=== PATIENT | female | born 1960 | race Caucasian/White ===

== ENCOUNTER → 2020-03-22 08:49 | Outpatient (BNVA) | payer MEDICARE, MEDICAID, SELFPAY | PROVIDERS: PCP Internal Medicine; Visit Provider Family Medicine Adult Medicine | DX: Z76.89 Persons encountering health services in other specified circumstances (principal) | CPT/HCPCS: 99212 ==

== ENCOUNTER 2020-03-22 10:34 | Outpatient (REF) | payer MEDICARE, MEDICAID, SELFPAY ==
[2020-03-22 13:52] LABS: MANUAL DIFF FLAG NO
[2020-03-22 14:00] LABS: Basophils Absolute Auto 0.1 X10*3/uL (0.0-0.2); Basophils Percent Auto 0.8 % (0-2); Eosinophils Absolute Auto 0.1 X10*3/uL (0.0-0.4); Hematocrit 38.8 % (37-47); Hemoglobin 12.7 g/dl (12.0-16.0); Imm Gran Abs Auto 0.02 X10*3/uL (0.00-0.03); Imm Gran Pct Auto 0.2 % (0.0-0.4); Lymphocytes Absolute Auto 2.1 X10*3/uL (1.2-4.9); Lymphocytes Percent Auto 20.2 % (20-40); Mean Corpuscular HGB Conc 32.7 g/dl (31.0-35.0); Mean Corpuscular Hemoglobin 29.6 pg (27.0-33.0); Mean Corpuscular Volume 90.4 fL (80-98); Mean Platelet Volume 12.4 fL (9.4-12.3); Monocytes Absolute Auto 0.9 X10*3/uL (0.1-1.2); Neutrophils Absolute Auto 7.2 X10*3/uL (2.0-8.3); Neutrophils Percent Auto 68.8 % (45-73); Platelet Count 229 X10*3/uL (160-400); Red Blood Count 4.29 X10*6/uL (4.20-5.50); Red Cell Distribution Width 14.2 % (11.0-16.0); White Blood Count 10.4 X10*3/uL (4.8-10.8)
[2020-03-22 14:19] LABS: Alanine Aminotransferase 15 U/L (0-31); Albumin Level 4.1 g/dL (3.5-5.0); Alkaline Phosphatase 91 U/L (39-117); Anion Gap 17 (12-20); Aspartate Amino Transferase 18 U/L (5-31); Bilirubin Total 0.4 mg/dL (0.0-1.0); Blood Urea Nitrogen 8 mg/dL (9-16); Carbon Dioxide 25 mmol/L (22-29); Chloride 101 mmol/L (96-108); Cholesterol 152 mg/dL; Estimated Glomerular Filt Rate > 60; Glucose Fasting 99 mg/dL (60-99); HDL Cholesterol 49 mg/dL; LDL Cholesterol Calculated 77 mg/dl; Lipase 18 U/L (8-78); Potassium 4.5 mmol/l (3.3-5.1); Sodium 138 mmol/L (135-145); Total Protein 7.2 g/dL (6.5-8.0); Triglycerides 132 mg/dL
[2020-03-22 14:43] LABS: Vitamin D 25-OH Total 48.3 ng/mL (>30)
== END 2020-03-22 10:35 | disposition home or self-care (01) ==
LOC: HO.10HDL 10:34
PROVIDERS: Visit Provider Internal Medicine
DX: K29.30 Chronic superficial gastritis without bleeding (principal); E78.00 Pure hypercholesterolemia, unspecified; R10.9 Unspecified abdominal pain; E66.3 Overweight; E55.9 Vitamin D deficiency, unspecified
CPT/HCPCS: 36415; 80053; 80061; 82306; 83690; 84443; 85025; 99212

== ENCOUNTER → 2020-04-05 09:42 | Outpatient (BNVA) | payer MEDICARE, MEDICAID, SELFPAY | PROVIDERS: PCP Internal Medicine; Visit Provider Internal Medicine Gastroenterology | DX: Z13.89 Encounter for screening for other disorder (principal) | CPT/HCPCS: Q3014 ==

== ENCOUNTER → 2020-04-14 08:17 | Outpatient (BNVA) | payer MEDICARE, MEDICAID, SELFPAY | PROVIDERS: PCP Internal Medicine; Visit Provider Family Medicine Adult Medicine | DX: M24.9 Joint derangement, unspecified (principal); M54.14 Radiculopathy, thoracic region | CPT/HCPCS: 81001; 87086; 99212 ==

== ENCOUNTER 2020-04-14 09:09 | Outpatient (REF) | payer MEDICARE, MEDICAID, SELFPAY ==
[2020-04-14 10:22] LABS: Glucose Urine UA NEG (NEG); Leukocyte Esterase Urine 1+ (NEG); Nitrite Urine NEG (NEG); PH 6.5 (5.0-8.0); Specific Gravity - Urine 1.015 (1.005-1.025); Urine Blood TRACE (NEG); Urine Ketones NEG (NEG); Urine Protein NEG (NEG-TRACE)
[2020-04-14 10:23] LABS: Appearance Urine CLEAR; Color Urine YELLOW
[2020-04-14 11:04] LABS: Mucus Urine TRACE /LPF; RBC Urine 0-2 /HPF (0); Squamous Epithelial Cell Urine 1+ /LPF
== END 2020-04-14 09:10 | disposition home or self-care (01) ==
LOC: HO.10HDL 09:09
PROVIDERS: Visit Provider Internal Medicine
DX: Z13.89 Encounter for screening for other disorder (principal)
CPT/HCPCS: 81001; 87086

== ENCOUNTER 2020-04-25 15:10 | Outpatient (REF) | payer MEDICARE, MEDICAID, SELFPAY | END 2020-04-25 15:11 | disposition home or self-care (01) | LOC: HO.HMGCLDS 15:10 | PROVIDERS: PCP Internal Medicine; Visit Provider Internal Medicine Gastroenterology | DX: Z13.89 Encounter for screening for other disorder (principal) ==

== ENCOUNTER 2020-04-26 12:50 | Outpatient (REF) | payer MEDICARE, MEDICAID, SELFPAY ==
[2020-04-26 13:58] LABS: MANUAL DIFF FLAG NO
[2020-04-26 14:08] LABS: Basophils Absolute Auto 0.1 X10*3/uL (0.0-0.2); Basophils Percent Auto 0.8 % (0-2); Eosinophils Absolute Auto 0.2 X10*3/uL (0.0-0.4); Eosinophils Percent Auto 1.4 % (0-4); Hematocrit 38.9 % (37-47); Hemoglobin 12.7 g/dl (12.0-16.0); Imm Gran Abs Auto 0.06 X10*3/uL (0.00-0.03); Imm Gran Pct Auto 0.6 % (0.0-0.4); Lymphocytes Absolute Auto 2.9 X10*3/uL (1.2-4.9); Lymphocytes Percent Auto 28.4 % (20-40); Mean Corpuscular HGB Conc 32.6 g/dl (31.0-35.0); Mean Corpuscular Hemoglobin 29.5 pg (27.0-33.0); Mean Corpuscular Volume 90.3 fL (80-98); Mean Platelet Volume 11.8 fL (9.4-12.3); Monocytes Absolute Auto 0.9 X10*3/uL (0.1-1.2); Monocytes Percent Auto 8.9 % (2-11); Neutrophils Absolute Auto 6.2 X10*3/uL (2.0-8.3); Neutrophils Percent Auto 59.9 % (45-73); Platelet Count 259 X10*3/uL (160-400); Red Blood Count 4.31 X10*6/uL (4.20-5.50); Red Cell Distribution Width 13.8 % (11.0-16.0); White Blood Count 10.4 X10*3/uL (4.8-10.8)
[2020-04-26 14:34] LABS: Alanine Aminotransferase 9 U/L (0-31); Albumin Level 4.1 g/dL (3.5-5.0); Alkaline Phosphatase 67 U/L (39-117); Anion Gap 14 (12-20); Aspartate Amino Transferase 14 U/L (5-31); Bilirubin Direct 0.2 mg/dL (0.0-0.5); Bilirubin Total 0.2 mg/dL (0.0-1.0); Blood Urea Nitrogen 7 mg/dL (9-16); C Reactive Protein 0.17 mg/dL (< or = 0.50); Calcium 9.1 mg/dL (8.4-10.2); Carbon Dioxide 27 mmol/L (22-29); Chloride 102 mmol/L (96-108); Estimated Glomerular Filt Rate > 60; Glucose Random 96 mg/dL (60-115); Potassium 4.2 mmol/l (3.3-5.1); Sodium 139 mmol/L (135-145); Total Protein 6.9 g/dL (6.5-8.0)
[2020-04-26 14:51] LABS: Glucose Urine UA NEG (NEG); Leukocyte Esterase Urine NEG (NEG); Nitrite Urine NEG (NEG); PH 5.5 (5.0-8.0); Urine Blood TRACE (NEG); Urine Ketones NEG (NEG); Urine Protein NEG (NEG-TRACE)
[2020-04-26 14:55] LABS: Appearance Urine HAZY; Color Urine YELLOW
[2020-04-26 15:15] LABS: Squamous Epithelial Cell Urine 1+ /LPF
[2020-04-26 15:16] LABS: Mucus Urine 2+ /LPF
== END 2020-04-26 12:51 | disposition home or self-care (01) ==
LOC: HO.HMGCLDS 12:50
PROVIDERS: PCP Internal Medicine; Visit Provider Internal Medicine Gastroenterology
DX: K29.30 Chronic superficial gastritis without bleeding (principal); K25.9 Gastric ulcer, unspecified as acute or chronic, without hemorrhage or perforation; R10.32 Left lower quadrant pain
CPT/HCPCS: 36415; 80048; 80076; 81001; 85025; 86140

== ENCOUNTER 2020-04-27 12:04 | Outpatient (REF) | payer MEDICARE, MEDICAID, SELFPAY ==
--- NOTE | 2020-04-27 12:06 | CT_ITS ---
EXAMINATION: CT ABDOMEN AND PELVIS WITH CONTRAST CLINICAL INFORMATION: Left lower quadrant pain COMPARISON: Previous exam February 2019 TECHNIQUE: Multidetector volumetric images were obtained from the superior aspect of the liver through the pubic symphysis following administration 85 mL of Omnipaque 350 intravenous contrast. Sagittal and coronal reformatted images were obtained on the technologist's workstation. Oral contrast: Yes This CT examination was performed using dose optimization techniques as appropriate, variously including the following: *Automated exposure control *Adjustment of mA and/or kV according to patient size (this includes techniques or standardized protocols for targeted exams where dose is matched to indication/reason for exam; i.e. extremities or head) *Use of iterative reconstruction technique DLP: 503 mGy-cm FINDINGS: LUNG BASES: The visualized lung bases are unremarkable. LIVER, GALLBLADDER, AND BILIARY TREE: The liver is normal in size, shape, and attenuation. No focal hepatic lesion. The gallbladder has been removed. There is mild intra and extrahepatic biliary duct dilatation. This is similar to previous exam and may be normal postcholecystectomy. Correlation with liver function tests is recommended. PANCREAS: Unremarkable. SPLEEN: Unremarkable. ADRENAL GLANDS: Unremarkable. KIDNEYS AND URETERS: There is a small cyst exophytic to the lower pole of the left kidney. The kidneys are otherwise unremarkable. BLADDER: Unremarkable. GASTROINTESTINAL TRACT: There are postsurgical changes to the stomach following gastric bypass. There is stool throughout the colon questionable for constipation. The small and large bowel are unremarkable. The appendix is unremarkable. ABDOMINAL WALL: No significant hernia is appreciated. LYMPH NODES: Normal. VASCULAR: Unremarkable. PELVIC VISCERA: Unremarkable. OSSEOUS STRUCTURES: There are degenerative changes of the spine. CT/CT abdomen pelvis w con IMPRESSION: No acute findings. Stool throughout the colon questionable for mild constipation. Mild intraextrahepatic biliary duct dilatation post cholecystectomy similar to February 2019. Correlation with liver function tests recommended. Postsurgical changes following gastric bypass. Small left renal cyst.
[2020-04-27] MEDS: Barium Sulfate Oral (Berry) 450 ML ORAL.SUSP 900 ML PO (14:47)
[2020-04-27] MEDS: iohexoL 350 MG/ML 100 ML INFUS..BTL IV (14:49)
== END 2020-04-27 12:05 | disposition home or self-care (01) ==
LOC: HO.CT 12:04
PROVIDERS: Visit Provider Internal Medicine Gastroenterology
DX: R10.32 Left lower quadrant pain (principal); K25.9 Gastric ulcer, unspecified as acute or chronic, without hemorrhage or perforation
CPT/HCPCS: 74177; Q9967

== ENCOUNTER → 2020-05-12 15:32 | Outpatient (BNVA) | payer MEDICARE, MEDICAID, SELFPAY | PROVIDERS: PCP Internal Medicine; Visit Provider Family Medicine Adult Medicine | DX: M24.9 Joint derangement, unspecified (principal); M54.14 Radiculopathy, thoracic region; F17.210 Nicotine dependence, cigarettes, uncomplicated; Z79.891 Long term (current) use of opiate analgesic | CPT/HCPCS: 99212 ==

== ENCOUNTER → 2020-06-10 11:21 | Outpatient (BNVA) | payer MEDICARE, MEDICAID, SELFPAY | PROVIDERS: PCP Internal Medicine; Visit Provider Nurse Practitioner Family | DX: M24.9 Joint derangement, unspecified (principal); G62.9 Polyneuropathy, unspecified ==

== ENCOUNTER → 2020-06-14 09:45 | Outpatient (BNVA) | payer MEDICARE, MEDICAID, SELFPAY | PROVIDERS: PCP Internal Medicine; Visit Provider Internal Medicine Gastroenterology | DX: Z13.89 Encounter for screening for other disorder (principal) | CPT/HCPCS: Q3014 ==

== ENCOUNTER → 2020-07-08 08:47 | Outpatient (BNVA) | payer MEDICARE, MEDICAID, SELFPAY | PROVIDERS: PCP Internal Medicine; Visit Provider Nurse Practitioner Family | DX: M24.9 Joint derangement, unspecified (principal); M54.14 Radiculopathy, thoracic region | CPT/HCPCS: 99212 ==

== ENCOUNTER → 2020-10-21 08:59 | Outpatient (BNVA) | payer MEDICARE, MEDICAID, SELFPAY | PROVIDERS: PCP Internal Medicine; Visit Provider Internal Medicine Gastroenterology | CPT/HCPCS: Q3014 ==

== ENCOUNTER 2020-10-27 11:10 | Day surgery (SDC) | payer MEDICARE, MEDICAID, SELFPAY ==
--- NOTE | 2020-10-26 10:01 | HO.ANESPROP2 ---
Documented by User: Aliya Francine 11/01/20 14:09 HPI - Anesthesia Eval Consult details Narrative: 60yo F for Upper Endoscopy *Multiple anaphylactic allergies* PMFSH Active Problems Active Problems: All Active Problems (Updated 07/08/20 @ 09:29 by Denise Darling NP) Status post gastric bypass for obesity (Acute) LLQ abdominal pain (Acute) Stomach ulcer (Acute) Derangement of ankle, left (Acute) Neuropathy (Acute) Thoracic radiculopathy (Acute) Superficial gastritis without hemorrhage (Acute) Pure hypercholesterolemia (Acute) Past Medical History Medical History Derangement of ankle, left Neuropathy Pure hypercholesterolemia Superficial gastritis without hemorrhage Thoracic radiculopathy Family History Family History Mother Diabetes mellitus Father Cardiovascular disease Brother Asbestosis Mesothelioma Sister Mental health problem Other Substance abuse Surgical History Surgical History H/O gastric bypass History of cholecystectomy History of elbow surgery History of eye surgery History of foot surgery History of oral surgery History of surgery History of tonsillectomy Social History Social History Household Members: Family and Children Housing: House Alcohol intake: current Alcohol intake frequency: holidays/special occasions only Alcohol type: wine Patient Tobacco Use Status: Current everyday Tobacco user Cigarettes Per Day: 5 Substance Use Type: Marijuana service: No Current occupational status: disabled Meds Allergies Allergy/AdvReac Type Severity Reaction Status Date / Time adhesive tape [TAPE,ADHESIVE] Allergy Severe ANAPHYLAXIS Verified 10/21/20 09:00 diphenhydramine Allergy Severe ANAPHYLAXIS Verified 10/21/20 09:00 [From BENADRYL] erythromycin base Allergy Severe ANAPHYLAXIS Verified 10/21/20 09:00 [ERYTHROMYCIN BASE] latex [LATEX] Allergy Severe ANAPHYLAXIS Verified 10/21/20 09:00 levofloxacin [From LEVAQUIN] Allergy Severe ANAPHYLAXIS Verified 10/21/20 09:00 meperidine [From DEMEROL] Allergy Severe ANAPHYLAXIS Verified 10/21/20 09:00 morphine [MORPHINE] Allergy Unknown UNKNOWN Verified 10/21/20 09:00 RED DYE IN TYLOX Allergy Unknown Unknown Uncoded 10/04/20 10:41 Home Medications Medication Instructions Recorded Confirmed Last Taken Type albuterol sulfate 90 mcg/actuation 2 puff INHALATION Q6H PRN 02/24/20 10/04/20 Unknown History aerosol inhaler ascorbate calcium (vitamin C) 500 600 mg PO DAILY tab 02/24/20 10/04/20 Unknown History mg tablet multivit with 1 tab PO DAILY 03/22/20 10/04/20 Unknown History raqmzplb-nycm-XG-lutein 8 mg iron-400 mcg-300 mcg tablet Exam Exam Date and Time: October 26, 2020 1001 Assessment and Plan Assessment Anesthesia Assessment: Chart Reviewed Documented by User: Adams Banda MD 11/01/20 14:43 [facility] Past Medical History Medical History Derangement of ankle, left Neuropathy Pure hypercholesterolemia Superficial gastritis without hemorrhage Thoracic radiculopathy Family History Family History Mother Diabetes mellitus Father Cardiovascular disease Brother Asbestosis Mesothelioma Sister Mental health problem Other Substance abuse Surgical History Surgical History H/O gastric bypass History of cholecystectomy History of elbow surgery History of eye surgery History of foot surgery History of oral surgery History of surgery History of tonsillectomy Social History Social History Household Members: Family and Children Housing: House Alcohol intake: current Alcohol intake frequency: holidays/special occasions only Alcohol type: wine Patient Tobacco Use Status: Current everyday Tobacco user Cigarettes Per Day: 5 Substance Use Type: Marijuana service: No Current occupational status: disabled Meds Allergies Allergy/AdvReac Type Severity Reaction Status Date / Time adhesive tape [TAPE,ADHESIVE] Allergy Severe ANAPHYLAXIS Verified 10/21/20 09:00 diphenhydramine Allergy Severe ANAPHYLAXIS Verified 10/21/20 09:00 [From BENADRYL] erythromycin base Allergy Severe ANAPHYLAXIS Verified 10/21/20 09:00 [ERYTHROMYCIN BASE] latex [LATEX] Allergy Severe ANAPHYLAXIS Verified 10/21/20 09:00 levofloxacin [From LEVAQUIN] Allergy Severe ANAPHYLAXIS Verified 10/21/20 09:00 meperidine [From DEMEROL] Allergy Severe ANAPHYLAXIS Verified 10/21/20 09:00 morphine [MORPHINE] Allergy Unknown UNKNOWN Verified 10/21/20 09:00 RED DYE IN TYLOX Allergy Unknown Unknown Uncoded 10/04/20 10:41 Home Medications Medication Instructions Recorded Confirmed Last Taken Type albuterol sulfate 90 mcg/actuation 2 puff INHALATION Q6H PRN 02/24/20 10/04/20 Unknown History aerosol inhaler ascorbate calcium (vitamin C) 500 600 mg PO DAILY tab 02/24/20 10/04/20 Unknown History mg tablet multivit with 1 tab PO DAILY 03/22/20 10/04/20 Unknown History jbwwytlh-qjhy-TB-lutein 8 mg iron-400 mcg-300 mcg tablet Assessment and Plan Assessment Anesthesia Assessment: Anesthesia Plan Discussed and Chart Reviewed Final Anesthetic Review NPO: Yes ASA Class: III Final Preanesthetic Review: No Changes in Pt Med Stat, Meds/Allgs Chart Reviewed, Consent Obtained/Reviewed and Anes Risks/Benef Reviewed Patient Risk: Intermediate Procedure Risk: Low Anesthetic Plan Anesthetic Plan: MAC: Disposition: Standard PACU
[2020-10-27 11:22] VITALS: BMI 27.3
[2020-10-27 11:23] VITALS: BP 125/75; PULSE 88; RESP 18; TEMP 36.7; O2SAT 98
--- NOTE | 2020-10-27 11:24 | MHC.SHP ---
Pre-Procedural Eval Section A Date of Service: 10/27/20 The patient is an INPATIENT: No The History & Physical has been completed within 30 days and I have reviewed it.: Yes Section B Chief Complaint: ulcer Allergies: Allergies Allergy/AdvReac Type Severity Reaction Status Date / Time adhesive tape [TAPE,ADHESIVE] Allergy Severe ANAPHYLAXIS Verified 10/21/20 09:00 diphenhydramine Allergy Severe ANAPHYLAXIS Verified 10/21/20 09:00 [From BENADRYL] erythromycin base Allergy Severe ANAPHYLAXIS Verified 10/21/20 09:00 [ERYTHROMYCIN BASE] latex [LATEX] Allergy Severe ANAPHYLAXIS Verified 10/21/20 09:00 levofloxacin [From LEVAQUIN] Allergy Severe ANAPHYLAXIS Verified 10/21/20 09:00 meperidine [From DEMEROL] Allergy Severe ANAPHYLAXIS Verified 10/21/20 09:00 morphine [MORPHINE] Allergy Unknown UNKNOWN Verified 10/21/20 09:00 RED DYE IN TYLOX Allergy Unknown Unknown Uncoded 10/04/20 10:41 Plan Diagnosis/Plan: Unchanged I have reviewed the history and physical and performed a pertinent physical examination on my patient. No changes have occurred unless specified.
[2020-10-27] MEDS: Lactated Ringers 1,000 ML 100 ML IVCONT (11:34)
--- NOTE | 2020-10-27 11:58 | PM.OP ---
Brief Operative Note Date of Service: 10/27/20 Pre-op diagnosis: epigastric pain and flank pain Post-op diagnosis: same Procedure: see op note Surgeon: Tawnya Scott MD Anesthesia: MAC Was an [employer] Headgate Operator used for this Procedure?: No Estimated blood loss (mL): 0 Condition: stable Disposition: PACU
--- NOTE | 2020-10-27 11:58 | W.PM.OPN ---
Operative Note Operative Note Date of Service: 10/27/20 Narrative: Procedure Description: EGD FLEXIBLE TRANSORAL UPPER GASTROINTESTINAL ENDOSCOPY UPPER ENDOSCOPY Consent: Indications for the procedure and potential complications of bleeding, perforation, reaction to medications and missed diagnosis were discussed with the patient and informed consent was obtained. Instrument: Olympus GIF H 190 J mid size upper endoscope Monitoring: Vital signs and clinical assessment, continuous EKG monitoring, Pulse oximetry, Carbon Dioxide monitoring and blood pressure monitoring were done throughout the procedure. Procedure: The patient was placed in the left lateral decubitis position and pre-procedure medications were administered and a bite block was placed. The endoscope was inserted into the mouth and advanced under direct vision to the third part of duodenum. A careful inspection was made as the upper endoscope was withdrawn including a retroflexed examination of the proximal stomach; Findings and interventions are described below. Findings: Larynx:normal Esophagus: GE junction at 38 cm. No esophagitis or [place]?s. Stomach pouch: normal mucosa. Biopsies were obtained to r/o h pylori. Grade 2 flap valve on retroflexed examination of the cardia. jejunum: Large matthew grade III ulcer on brittany limb, measuring about 15 mm in diameter, with surrounding erythema and erosions Intervention: Biopsies as noted above Impression: Endoscopy Findings: anastomotic ulcer on jejunal side Plan: Needs PPI, either immediate release or capsules opened and mixed with apple sauce, and carafate bid or tid, smoking cessation need re emphasized again, avoid nsaids, if h pylori pos then treat
[2020-10-27 12:22] VITALS: BP 98/59; PULSE 69; RESP 16; TEMP 36.4; O2SAT 95
[2020-10-27 12:37] VITALS: BP 118/79; PULSE 63; RESP 16; TEMP 36.4; O2SAT 98
== END 2020-10-27 13:36 | disposition home or self-care (01) ==
PROVIDERS: PCP Internal Medicine; Visit Provider Internal Medicine Gastroenterology
PROC: 0DJ08ZZ Inspection of Upper Intestinal Tract, Via Natural or Artificial Opening Endoscopic (ICD-10-PCS; CPT 43235; principal; 2020-10-27 12:20)
DX: K28.9 Gastrojejunal ulcer, unspecified as acute or chronic, without hemorrhage or perforation (principal); K29.30 Chronic superficial gastritis without bleeding; Z98.84 Bariatric surgery status; I10 Essential (primary) hypertension; G62.9 Polyneuropathy, unspecified; J45.909 Unspecified asthma, uncomplicated; Z79.899 Other long term (current) drug therapy; Z90.49 Acquired absence of other specified parts of digestive tract; Z91.040 Latex allergy status; Z88.8 Allergy status to other drugs, medicaments and biological substances; F17.210 Nicotine dependence, cigarettes, uncomplicated; F12.90 Cannabis use, unspecified, uncomplicated
CPT/HCPCS: 43239; 88305; 88342; J2405; J3010

== ENCOUNTER → 2021-02-24 08:52 | Outpatient (BNVA) | payer MEDICARE, MEDICAID, SELFPAY | PROVIDERS: PCP Internal Medicine; Visit Provider Internal Medicine Gastroenterology | CPT/HCPCS: Q3014 ==

== ENCOUNTER 2021-03-13 14:09 | Outpatient (REF) | payer MEDICARE, MEDICAID, SELFPAY ==
--- NOTE | ~2021-03-13 | MR_ITS ---
EXAMINATION: MR ABDOMEN WITHOUT AND WITH CONTRAST CLINICAL INFORMATION: Epigastric pain. Family history of pancreatic cancer. COMPARISON: CT 04/27/2020 TECHNIQUE: MR abdomen was performed without and with use of 10 mL intravenous Gadavist gadolinium contrast. Postcontrast images are performed in multiphase dynamic sequences. Imaging was performed in 3 planes. FINDINGS: LUNG BASES: The visualized lung bases are unremarkable. LIVER, GALLBLADDER, AND BILIARY TREE: The liver is normal in size and smooth in contour. There is normal signal. No significant signal dropout on out of phase imaging to suggest hepatic steatosis. No focal hepatic lesion. Status post cholecystectomy. Mild intrahepatic biliary ductal dilatation noted. Normal caliber common bile duct. No ductal filling defect. PANCREAS: The pancreatic parenchyma is homogenous with no focal lesion. No pancreatic ductal dilatation. Similar appearance of anterior extension of pancreatic parenchyma in the region of the pancreatic tail. This is unchanged from prior CT. SPLEEN: Normal. ADRENAL GLANDS: Normal. KIDNEYS AND URETERS: The kidneys are normal in size, shape, and enhance symmetrically. No hydronephrosis. No perinephric stranding. Tiny cortical simple cysts bilaterally. No follow-up imaging recommended. GASTROINTESTINAL TRACT: Postsurgical changes of the stomach with appearance of gastric bypass. No bowel obstruction. No ascites or fluid collection. ABDOMINAL WALL: No significant hernia is appreciated. LYMPH NODES: No lymphadenopathy. VASCULAR: Unremarkable. OSSEOUS STRUCTURES: Marrow signal normal. MR/MR abdomen wo/w con IMPRESSION: No suspicious findings of the abdomen. No masses identified. No inflammatory changes.
[2021-03-13 14:52] LABS: Blood Urea Nitrogen 7 mg/dL (9-16); Estimated Glomerular Filt Rate > 60
== END 2021-03-13 14:10 | disposition home or self-care (01) ==
LOC: HO.MRI 14:09
PROVIDERS: PCP Internal Medicine; Visit Provider Internal Medicine Gastroenterology
DX: R10.13 Epigastric pain (principal); R10.32 Left lower quadrant pain
CPT/HCPCS: 36415; 74183; 82565; 84520; A9585

== ENCOUNTER 2021-04-05 11:18 | Outpatient (REF) | payer MEDICARE, MEDICAID, SELFPAY ==
[2021-04-05 11:43] LABS: MANUAL DIFF FLAG NO
[2021-04-05 11:52] LABS: Basophils Absolute Auto 0.1 X10*3/uL (0.0-0.2); Basophils Percent Auto 0.7 % (0-2); Eosinophils Absolute Auto 0.2 X10*3/uL (0.0-0.4); Eosinophils Percent Auto 1.9 % (0-4); Hematocrit 38.4 % (37.0-47.0); Hemoglobin 12.4 g/dl (12.0-16.0); Imm Gran Abs Auto 0.04 X10*3/uL (0.00-0.03); Imm Gran Pct Auto 0.4 % (0.0-0.4); Lymphocytes Absolute Auto 2.2 X10*3/uL (1.2-4.9); Lymphocytes Percent Auto 21.7 % (20-40); Mean Corpuscular HGB Conc 32.3 g/dl (31.0-35.0); Mean Corpuscular Hemoglobin 30.2 pg (27.0-33.0); Mean Corpuscular Volume 93.7 fL (80.0-98.0); Monocytes Absolute Auto 0.8 X10*3/uL (0.1-1.2); Monocytes Percent Auto 7.9 % (2-11); Neutrophils Absolute Auto 6.8 x10*3/uL (2.0-8.3); Neutrophils Percent Auto 67.4 % (45-73); Platelet Count 267 X10*3/uL (160-400); White Blood Count 10.1 X10*3/uL (4.8-10.8)
[2021-04-05 12:19] LABS: Alanine Aminotransferase 17 U/L (0-31); Albumin Level 3.9 g/dL (3.5-5.0); Alkaline Phosphatase 76 U/L (39-117); Anion Gap 9 (12-20); Aspartate Amino Transferase 18 U/L (5-31); Bilirubin Total 0.3 mg/dL (0.0-1.0); Blood Urea Nitrogen 8 mg/dL (9-16); Calcium 9.6 mg/dL (8.4-10.2); Carbon Dioxide 30 mmol/L (22-29); Chloride 106 mmol/L (96-108); Cholesterol 160 mg/dL; Estimated Glomerular Filt Rate > 60; Glucose Fasting 99 mg/dL (60-99); HDL Cholesterol 48 mg/dL; LDL Cholesterol Calculated 84 mg/dl; Potassium 4.3 mmol/L (3.3-5.1); Sodium 141 mmol/L (135-145); Total Protein 6.8 g/dL (6.5-8.0); Triglycerides 142 mg/dL
[2021-04-05 12:39] LABS: Appearance Urine CLEAR; Color Urine YELLOW; Glucose Urine UA NEG (NEG); Leukocyte Esterase Urine NEG (NEG); Nitrite Urine NEG (NEG); Specific Gravity - Urine 1.015 (1.005-1.025); Urine Blood NEG (NEG); Urine Ketones 5 MG/DL (NEG); Urine Protein NEG (NEG-TRACE)
[2021-04-05 12:40] LABS: TSH reflex Free T4 0.67 uIU/mL (0.32-4.0); Vitamin D 25-OH Total 40.2 ng/mL (>30)
== END 2021-04-05 11:19 | disposition home or self-care (01) ==
LOC: HO.LAB 11:18
PROVIDERS: PCP Internal Medicine; Visit Provider Internal Medicine
DX: I10 Essential (primary) hypertension (principal); E78.00 Pure hypercholesterolemia, unspecified; E55.9 Vitamin D deficiency, unspecified
CPT/HCPCS: 36415; 80053; 80061; 81003; 82306; 84443; 85025

== ENCOUNTER → 2021-06-23 10:34 | Outpatient (BNVA) | payer MEDICARE, MEDICAID, SELFPAY | PROVIDERS: PCP Internal Medicine; Visit Provider Internal Medicine Gastroenterology | DX: Z13.89 Encounter for screening for other disorder (principal) | CPT/HCPCS: Q3014 ==

== ENCOUNTER → 2021-06-26 15:23 | Outpatient (BNVA) | payer MEDICARE, MEDICAID, SELFPAY | PROVIDERS: PCP Internal Medicine; Referring Provider Internal Medicine; Visit Provider Surgery | DX: L72.0 Epidermal cyst (principal) | CPT/HCPCS: 99202 ==

== ENCOUNTER 2021-09-14 08:54 | Outpatient (REF) | payer MEDICARE, MEDICAID, SELFPAY | END 2021-09-14 08:55 | disposition home or self-care (01) | LOC: HO.LAB 08:54 | PROVIDERS: PCP Internal Medicine; Visit Provider Surgery | DX: L72.0 Epidermal cyst (principal) | CPT/HCPCS: 11402; 88304; 88305 ==

== ENCOUNTER → 2021-09-20 09:11 | Outpatient (BNVA) | payer MEDICARE, MEDICAID, SELFPAY | PROVIDERS: PCP Internal Medicine; Visit Provider Surgery | DX: Z48.02 Encounter for removal of sutures (principal) | CPT/HCPCS: 99211 ==

== ENCOUNTER 2021-12-13 07:26 | Day surgery (SDC) | payer MEDICARE, MEDICAID, SELFPAY ==
[2021-12-07 12:00] VITALS: BMI 29.5
--- NOTE | 2021-12-12 11:47 | P.CONAN_ITS ---
Documented by User: Aliya Escamilla NP 12/12/21 11:49 HPI - Anesthesia Eval Consult details Narrative: 61yo F for Upper Endoscopy and Colonoscopy *Multiple Anaphylactic Med Allergies* s/p gastric bypass 2014 [facility] Active Problems Active Problems: All Active Problems (Updated 09/28/21 @ 09:23 by Mukesh Allen MD) Stomach ulcer (Acute) LLQ abdominal pain (Acute) Status post gastric bypass for obesity (Acute) Abdominal pain, acute, epigastric (Acute) Cutaneous abscess of axilla (Acute) Cutaneous abscess of chest wall (Acute) Epidermal inclusion cyst (Acute) Epidermal cyst (Acute) Obesity (BMI 30-39.9) (Acute) Derangement of ankle, left (Acute) Neuropathy (Acute) Thoracic radiculopathy (Acute) Superficial gastritis without hemorrhage (Acute) Pure hypercholesterolemia (Acute) Past Medical History Medical History Derangement of ankle, left Epidermal cyst Neuropathy Obesity (BMI 30-39.9) Pure hypercholesterolemia Superficial gastritis without hemorrhage Thoracic radiculopathy Family History Family History Mother Diabetes mellitus Father Cardiovascular disease Brother Asbestosis Mesothelioma Sister Mental health problem Other Substance abuse Surgical History Surgical History (Updated 12/07/21 @ 11:38 by Erum Carlos, RN) H/O gastric bypass History of cholecystectomy History of elbow surgery History of esophagogastroduodenoscopy (EGD) History of eye surgery History of foot surgery History of oral surgery History of surgery History of tonsillectomy Hx of colonoscopy Social History Social History Household Members: Family and Children Housing: House Are you a primary care advocate to a significant other at home: No Do you presently have visiting nurse or other home services: No Alcohol intake: current Alcohol intake frequency: holidays/special occasions only Alcohol type: wine Patient Tobacco Use Status: Current everyday Tobacco user Tobacco use type: Cigarette Cigarettes Per Day: 10 Years Smoked: 54 Smoked in Last 30 Days: Yes Patient Interested in Nicotine Replacement: No Second Hand Smoke Exposure: Yes Use of substances other than those prescribed or required for medical reasons: No Substance Use Type: Marijuana Have you been hit, kicked, punched, or otherwise hurt by someone within the past year? If so, by whom?: No Are you DNR?: No Advance Directives: No Advance Directives Information Provided: Yes Advance Directives on File: No Recently lost weight without trying: Yes How much weight loss: 2-13 pounds Eating poorly because of decreased appetite: No Nutrition screen score: 3 Nutrition Risks: No Nutritional Risk Patient : No service: No Current occupational status: disabled Cognitive needs: No Hearing needs: No Vision needs: Yes Meds Allergies Allergy/AdvReac Type Severity Reaction Status Date / Time adhesive tape [TAPE,ADHESIVE] Allergy Severe ANAPHYLAXIS Verified 12/07/21 11:34 diphenhydramine Allergy Severe ANAPHYLAXIS Verified 12/07/21 11:34 [From BENADRYL] erythromycin base Allergy Severe ANAPHYLAXIS Verified 12/07/21 11:34 [ERYTHROMYCIN BASE] latex [LATEX] Allergy Severe ANAPHYLAXIS Verified 12/07/21 11:34 levofloxacin [From LEVAQUIN] Allergy Severe ANAPHYLAXIS Verified 12/07/21 11:34 meperidine [From DEMEROL] Allergy Severe ANAPHYLAXIS Verified 12/07/21 11:34 morphine [MORPHINE] Allergy Unknown UNKNOWN Verified 12/07/21 11:34 RED DYE IN TYLOX Allergy Unknown Unknown Uncoded 12/07/21 11:34 pollen Allergy Sneezing Uncoded 12/07/21 12:00 Home Medications Medication Instructions Recorded Confirmed Last Taken Type ascorbate calcium (vitamin C) 500 600 mg PO DAILY 02/24/20 10/04/21 Unknown History mg tablet multivit with 1 tab PO DAILY 03/22/20 12/07/21 Unknown History quirytsp-ohzh-SU-lutein 8 mg iron-400 mcg-300 mcg tablet (Centrum Silver Women) famotidine 20 mg tablet 40 mg PO BEDTIME 12/07/21 12/07/21 Unknown History Exam Exam Date and Time: December 12, 2021 1147 Height,Weight and Vital Signs: Height 5 ft 9 in Weight 90.718 kg Assessment and Plan Assessment Anesthesia Assessment: Chart Reviewed Documented by User: Salud Guillory MD 12/13/21 08:18 [facility] Past Medical History Medical History Derangement of ankle, left Epidermal cyst Neuropathy Obesity (BMI 30-39.9) Pure hypercholesterolemia Superficial gastritis without hemorrhage Thoracic radiculopathy Family History Family History Mother Diabetes mellitus Father Cardiovascular disease Brother Asbestosis Mesothelioma Sister Mental health problem Other Substance abuse Family history of problems with anesthesia: No Surgical History Surgical History (Updated 12/07/21 @ 11:38 by Erum Carlos, RN) H/O gastric bypass History of cholecystectomy History of elbow surgery History of esophagogastroduodenoscopy (EGD) History of eye surgery History of foot surgery History of oral surgery History of surgery History of tonsillectomy Hx of colonoscopy History of Problems with Anesthesia: No Social History Social History Household Members: Family and Children Housing: House Are you a primary care advocate to a significant other at home: No Do you presently have visiting nurse or other home services: No Alcohol intake: current Alcohol intake frequency: holidays/special occasions only Alcohol type: wine Patient Tobacco Use Status: Current everyday Tobacco user Tobacco use type: Cigarette Cigarettes Per Day: 10 Years Smoked: 54 Smoked in Last 30 Days: Yes Patient Interested in Nicotine Replacement: No Second Hand Smoke Exposure: Yes Use of substances other than those prescribed or required for medical reasons: No Substance Use Type: Marijuana Have you been hit, kicked, punched, or otherwise hurt by someone within the past year? If so, by whom?: No Are you DNR?: No Advance Directives: No Advance Directives Information Provided: Yes Advance Directives on File: No Recently lost weight without trying: Yes How much weight loss: 2-13 pounds Eating poorly because of decreased appetite: No Nutrition screen score: 3 Nutrition Risks: No Nutritional Risk Patient : No service: No Current occupational status: disabled Cognitive needs: No Hearing needs: No Vision needs: Yes Meds Allergies Allergy/AdvReac Type Severity Reaction Status Date / Time adhesive tape [TAPE,ADHESIVE] Allergy Severe ANAPHYLAXIS Verified 12/07/21 11:34 diphenhydramine Allergy Severe ANAPHYLAXIS Verified 12/07/21 11:34 [From BENADRYL] erythromycin base Allergy Severe ANAPHYLAXIS Verified 12/07/21 11:34 [ERYTHROMYCIN BASE] latex [LATEX] Allergy Severe ANAPHYLAXIS Verified 12/07/21 11:34 levofloxacin [From LEVAQUIN] Allergy Severe ANAPHYLAXIS Verified 12/07/21 11:34 meperidine [From DEMEROL] Allergy Severe ANAPHYLAXIS Verified 12/07/21 11:34 morphine [MORPHINE] Allergy Unknown UNKNOWN Verified 12/07/21 11:34 RED DYE IN TYLOX Allergy Unknown Unknown Uncoded 12/07/21 11:34 pollen Allergy Sneezing Uncoded 12/07/21 12:00 Home Medications Medication Instructions Recorded Confirmed Last Taken Type ascorbate calcium (vitamin C) 500 600 mg PO DAILY 02/24/20 10/04/21 Unknown History mg tablet multivit with 1 tab PO DAILY 03/22/20 12/07/21 Unknown History hjppidvd-pahq-QJ-lutein 8 mg iron-400 mcg-300 mcg tablet (Centrum Silver Women) famotidine 20 mg tablet 40 mg PO BEDTIME 12/07/21 12/07/21 Unknown History Exam Airway Mallampati Class: II TM Dist: >3cm Neck ROM: Full Heart: rrr Lungs: cta Assessment and Plan Assessment Anesthesia Assessment: Anesthesia Plan Discussed and Chart Reviewed Final Anesthetic Review Family History of Problems with Anesthesia: No History of Problems with Anesthesia: No NPO: Yes ASA Class: III Final Preanesthetic Review: No Changes in Pt Med Stat, Meds/Allgs Chart Reviewed and Consent Obtained/Reviewed Patient Risk: Intermediate Procedure Risk: Intermediate Anesthetic Plan Anesthetic Plan: MAC:
[2021-12-13 07:52] VITALS: BP 133/76; PULSE 71; RESP 18; TEMP 36.5; O2SAT 98
[2021-12-13 08:01] VITALS: BMI 29.5
[2021-12-13] MEDS: Lactated Ringers 1,000 ML 100 ML IVCONT (08:17)
--- NOTE | 2021-12-13 08:20 | MHC.SHP ---
Pre-Procedural Eval Section A Date of Service: 12/13/21 Section B Chief Complaint: screening,gastric ulcer Relevant Family History (Specify if Yes): No Relevant Social History: Tobacco Use Present Medications: see Short Stay Collaborative assessment Medical History: Significant History (Derangement of ankle, left Epidermal cyst Neuropathy Obesity (BMI 30-39.9) Pure hypercholesterolemia Superficial gastritis without hemorrhage Thoracic radiculopathy) History of Previous Operations: Relevant previous surgery/procedure and date(s) (H/O gastric bypass History of cholecystectomy History of elbow surgery History of esophagogastroduodenoscopy (EGD) History of eye surgery History of foot surgery History of oral surgery History of surgery History of tonsillectomy Hx of colonoscopy) Allergies: Allergies Allergy/AdvReac Type Severity Reaction Status Date / Time adhesive tape [TAPE,ADHESIVE] Allergy Severe ANAPHYLAXIS Verified 12/07/21 11:34 diphenhydramine Allergy Severe ANAPHYLAXIS Verified 12/07/21 11:34 [From BENADRYL] erythromycin base Allergy Severe ANAPHYLAXIS Verified 12/07/21 11:34 [ERYTHROMYCIN BASE] latex [LATEX] Allergy Severe ANAPHYLAXIS Verified 12/07/21 11:34 levofloxacin [From LEVAQUIN] Allergy Severe ANAPHYLAXIS Verified 12/07/21 11:34 meperidine [From DEMEROL] Allergy Severe ANAPHYLAXIS Verified 12/07/21 11:34 morphine [MORPHINE] Allergy Unknown UNKNOWN Verified 12/07/21 11:34 RED DYE IN TYLOX Allergy Unknown Unknown Uncoded 12/07/21 11:34 pollen Allergy Sneezing Uncoded 12/07/21 12:00 Review of Systems Sugical H&P ROS: Negative: Constitution, Cardiovascular, Respiratory, Neurological, Psychiatric, Hem-Onc, Allergic/Immunologic, Gastrointestinal, Genitourinary, Musculoskeletal, Integumentary, Endocrine and Eyes/Ears/Nose/Throat Exam Surgical H&P Exam: Normal: HEENT, Normal: Heart, Normal: Lungs, Normal: Extremities, Normal: Abdomen, Normal: Skin and Normal: Neurological Plan Diagnosis/Plan: Unchanged I have reviewed the history and physical and performed a pertinent physical examination on my patient. No changes have occurred unless specified.
--- NOTE | 2021-12-13 08:21 | W.PM.OPN ---
Operative Note Operative Note Date of Service: 12/13/21 Narrative: Operative Information Procedure Description: EGD, Colonoscopy Indication: hx of anastomotic ulcer, hx of colon polyp Anesthesia: MAC FLEXIBLE TRANSORAL UPPER GASTROINTESTINAL ENDOSCOPY AND COLONOSCOPY PROCEDURE NOTE UPPER ENDOSCOPY Consent: Indications for the procedure and potential complications of bleeding, perforation, reaction to medications and missed diagnosis were discussed with the patient and informed consent was obtained. Instrument: Olympus GIF H 190 J mid size upper endoscope Monitoring: Vital signs and clinical assessment, continuous EKG monitoring, Pulse oximetry, Carbon Dioxide monitoring and blood pressure monitoring were done throughout the procedure. Procedure: The patient was placed in the left lateral decubitis position and pre-procedure medications were administered and a bite block was placed. The endoscope was inserted into the mouth and advanced under direct vision to the third part of duodenum. A careful inspection was made as the upper endoscope was withdrawn including a retroflexed examination of the proximal stomach; Findings and interventions are described below. Findings: Larynx:normal Esophagus: GE junction at 37 cm, diaphragm hiatus at 37 cm, normal mucosa Stomach pouch: Retaiend suture noted with surrounding erythematous and edematous tissue, this was removed and then one clip applied for hemostasis . Grade 2 flap valve on retroflexed examination of the cardia. jejunum: small anastomotic ulcer noted on brittany limb, much improved from before. Intervention: removal of foreign body COLONOSCOPY Instrument: Olympus variable stiffness adult scope 190L Colonoscopy Monitoring: Vital signs and clinical assessment, continuous EKG monitoring, Pulse oximetry, Carbon Dioxide monitoring and blood pressure monitoring were done throughout the procedure. Colon withdrawal time was 13 minutes. Procedure: The patient was placed in the left lateral decubitis position and pre-procedure medications were administered. After a digital rectal examination of the ano-rectum, the video colonoscope was inserted into the rectum and advanced through the colon to the cecum/TI. The colonoscope was slowly withdrawn in a retrograde panoramic fashion and the colon mucosa was carefully examined including a retroflexed view of the rectum. Findings and interventions are described below. Procedure Difficulty:moderate Findings: Terminal Ileum-normal Cecum:normal Ascending Colon: normal Transverse Colon -normal Descending Colon:normal Sigmoid Colon: 6-8 mm sessile polyp removed with cold snare Rectum: Retroflexion with moderate sized internal hemorrhoids, grade I Anorectum - normal Colon preparation: Biddle Bowel Preparation Scale Right colon; 2 Transverse colon: 2 Left colon; 1-2 (0 = Unprepared colon segment with mucosa not seen due to solid stool that cannot be cleared. 1 = Portion of mucosa of the colon segment seen, but other areas of the colon segment not well seen due to staining, residual stool and/or opaque liquid. 2 = Minor amount of residual staining, small fragments of stool and/or opaque liquid, but mucosa of colon segment seen well. 3 = Entire mucosa of colon segment seen well with no residual staining, small fragments of stool or opaque liquid) Impression and Post Procedure Diagnosis: Endoscopy Findings: retained suture-removed anastomotic ulcer Colonoscopy Findings: polyp internal hemorrhoids Plan: Await Pathology results Repeat Colonoscopy in 5 years due to fair left sided prep and polyp or earlier if clinically indicated High fiber diet leaflet avoid straining at stool, epsom salts and sitz bath, anusol supps or cream cont with PPi and carafate smoking cessation leaflet Above findings were reviewed with the patient and relevant handouts were provided if indicated.
--- NOTE | 2021-12-13 08:42 | HO.ANESPROP2 ---
[facility] Active Problems Active Problems: All Active Problems (Updated 09/28/21 @ 09:23 by Mukesh Allen MD) Stomach ulcer (Acute) LLQ abdominal pain (Acute) Status post gastric bypass for obesity (Acute) Abdominal pain, acute, epigastric (Acute) Cutaneous abscess of axilla (Acute) Cutaneous abscess of chest wall (Acute) Epidermal inclusion cyst (Acute) Epidermal cyst (Acute) Obesity (BMI 30-39.9) (Acute) Derangement of ankle, left (Acute) Neuropathy (Acute) Thoracic radiculopathy (Acute) Superficial gastritis without hemorrhage (Acute) Pure hypercholesterolemia (Acute) Past Medical History Medical History Derangement of ankle, left Epidermal cyst Neuropathy Obesity (BMI 30-39.9) Pure hypercholesterolemia Superficial gastritis without hemorrhage Thoracic radiculopathy Functional capacity: independent ambulation Patient : No Family History Family History Mother Diabetes mellitus Father Cardiovascular disease Brother Asbestosis Mesothelioma Sister Mental health problem Other Substance abuse Family history of problems with anesthesia: No Surgical History Surgical History H/O gastric bypass History of cholecystectomy History of elbow surgery History of esophagogastroduodenoscopy (EGD) History of eye surgery History of foot surgery History of oral surgery History of surgery History of tonsillectomy Hx of colonoscopy History of Problems with Anesthesia: No Social History Social History Household Members: Family and Children Housing: House Are you a primary account executive healthcare to a significant other at home: No Do you presently have visiting nurse or other home services: No Alcohol intake: current Alcohol intake frequency: holidays/special occasions only Alcohol type: wine Patient Tobacco Use Status: Current everyday Tobacco user Tobacco use type: Cigarette Cigarettes Per Day: 10 Years Smoked: 54 Smoked in Last 30 Days: Yes Patient Interested in Nicotine Replacement: No Second Hand Smoke Exposure: Yes Use of substances other than those prescribed or required for medical reasons: No Substance Use Type: Marijuana Have you been hit, kicked, punched, or otherwise hurt by someone within the past year? If so, by whom?: No Are you DNR?: No Advance Directives: No Advance Directives Information Provided: Yes Advance Directives on File: No Recently lost weight without trying: Yes How much weight loss: 2-13 pounds Eating poorly because of decreased appetite: No Nutrition screen score: 3 Nutrition Risks: No Nutritional Risk Patient : No service: No Current occupational status: disabled Cognitive needs: No Hearing needs: No Vision needs: Yes Meds Allergies Allergy/AdvReac Type Severity Reaction Status Date / Time adhesive tape [TAPE,ADHESIVE] Allergy Severe ANAPHYLAXIS Verified 12/07/21 11:34 diphenhydramine Allergy Severe ANAPHYLAXIS Verified 12/07/21 11:34 [From BENADRYL] erythromycin base Allergy Severe ANAPHYLAXIS Verified 12/07/21 11:34 [ERYTHROMYCIN BASE] latex [LATEX] Allergy Severe ANAPHYLAXIS Verified 12/07/21 11:34 levofloxacin [From LEVAQUIN] Allergy Severe ANAPHYLAXIS Verified 12/07/21 11:34 meperidine [From DEMEROL] Allergy Severe ANAPHYLAXIS Verified 12/07/21 11:34 morphine [MORPHINE] Allergy Unknown UNKNOWN Verified 12/07/21 11:34 RED DYE IN TYLOX Allergy Unknown Unknown Uncoded 12/07/21 11:34 pollen Allergy Sneezing Uncoded 12/07/21 12:00 Active Medications: Current Medications Lactated Ringer's (Lr) 1,000 mls @ 100 mls/hr IVCONT .Q10H PATO Last Admin: 12/13/21 08:17 Dose: 100 mls/hr Home Medications Medication Instructions Recorded Confirmed Last Taken Type ascorbate calcium (vitamin C) 500 600 mg PO DAILY 02/24/20 10/04/21 Unknown History mg tablet multivit with 1 tab PO DAILY 03/22/20 12/07/21 Unknown History mnhphkhu-devd-NM-lutein 8 mg iron-400 mcg-300 mcg tablet (Centrum Silver Women) famotidine 20 mg tablet 40 mg PO BEDTIME 12/07/21 12/07/21 Unknown History Exam Exam Date and Time: December 13, 2021 0842 Height,Weight and Vital Signs: Height 5 ft 9 in Weight 90.718 kg Last Vital Signs Temp 97.7 F 12/13/21 07:52 Pulse 71 12/13/21 07:52 Resp 18 12/13/21 07:52 BP 133/76 12/13/21 07:52 Pulse Ox 98 12/13/21 07:52 O2 Del Method 12/13/21 07:52 Airway Mallampati Class: II TM Dist: >3cm Neck ROM: Full Heart: RRR Lungs: CTA Assessment and Plan Final Anesthetic Review Family History of Problems with Anesthesia: No History of Problems with Anesthesia: No ASA Class: III Final Preanesthetic Review: No Changes in Pt Med Stat, Meds/Allgs Chart Reviewed, Consent Obtained/Reviewed and Anes Risks/Benef Reviewed Patient Risk: Low Procedure Risk: Low Anesthetic Plan Anesthetic Plan: MAC: Disposition: Standard PACU
[2021-12-13 09:12] VITALS: BP 108/66; PULSE 72; RESP 16; TEMP 36.4; O2SAT 98
[2021-12-13 09:27] VITALS: BP 127/80; PULSE 73; RESP 16; TEMP 36.3; O2SAT 100
--- NOTE | 2021-12-13 11:57 | HO.POSTANES ---
Post Anesthesia Evaluation Post Anesthesia Evaluation Vital Signs: Vital Signs Temp Pulse Resp BP Pulse Ox O2 Del Method 12/13/21 09:27 97.4 F 73 16 127/80 100 Room Air 12/13/21 09:12 97.6 F 72 16 108/66 98 Room Air 12/13/21 07:52 97.7 F 71 18 133/76 98 Room Air Anesthesia: Monitored Mental Status: Awake Pain Control: Satisfactory Nausea/Vomiting: None Hydration: Adequate Anesthesia-Related Issues: No Anes. Related Issues
== END 2021-12-13 09:59 | disposition home or self-care (01) ==
PROVIDERS: PCP Internal Medicine; Visit Provider Internal Medicine Gastroenterology
PROC: (CPT 45385; principal; 2021-12-13 08:30)
DX: Z12.11 Encounter for screening for malignant neoplasm of colon (principal); Z86.010 Personal history of colon polyps; D12.5 Benign neoplasm of sigmoid colon; K64.0 First degree hemorrhoids; K25.9 Gastric ulcer, unspecified as acute or chronic, without hemorrhage or perforation; Z18.89 Other specified retained foreign body fragments; K44.9 Diaphragmatic hernia without obstruction or gangrene; I10 Essential (primary) hypertension; E78.5 Hyperlipidemia, unspecified; E78.00 Pure hypercholesterolemia, unspecified; G62.9 Polyneuropathy, unspecified; H40.9 Unspecified glaucoma; J45.909 Unspecified asthma, uncomplicated; Z88.1 Allergy status to other antibiotic agents; Z88.8 Allergy status to other drugs, medicaments and biological substances; Z91.040 Latex allergy status; F17.210 Nicotine dependence, cigarettes, uncomplicated; Z98.84 Bariatric surgery status; Z90.49 Acquired absence of other specified parts of digestive tract; Z79.899 Other long term (current) drug therapy
CPT/HCPCS: 45385; 43247; 88305

== ENCOUNTER → 2022-01-01 12:56 | Outpatient (BNVA) | payer MEDICARE, MEDICAID, SELFPAY | PROVIDERS: PCP Internal Medicine; Visit Provider Internal Medicine Gastroenterology | DX: R10.9 Unspecified abdominal pain (principal) | CPT/HCPCS: Q3014 ==

== ENCOUNTER 2022-01-08 11:17 | Outpatient (REF) | payer MEDICARE, MEDICAID, SELFPAY ==
[2022-01-08 11:59] LABS: Hematocrit 40.3 % (37.0-47.0); Mean Corpuscular HGB Conc 32.3 g/dl (31.0-35.0); Mean Corpuscular Hemoglobin 30.4 pg (27.0-33.0); Mean Corpuscular Volume 94.2 fL (80.0-98.0); Mean Platelet Volume 11.2 fL (9.4-12.3); Platelet Count 291 X10*3/uL (160-400); Red Blood Count 4.28 X10*6/uL (4.20-5.50); Red Cell Distribution Width 14.7 % (11.0-16.0); White Blood Count 10.8 X10*3/uL (4.8-10.8)
[2022-01-08 12:32] LABS: Appearance Urine Clear; Color Urine Dark Yellow; Glucose Urine UA Negative (Negative); Leukocyte Esterase Urine Small (1+) (Negative); Nitrite Urine Negative (Negative); PH 5.5 (5.0-9.0); Specific Gravity - Urine >= 1.030 (1.005-1.025); UMIC TRIGGER UACC YES; Urine Blood Negative (Negative); Urine Ketones Trace mg/dL (Negative); Urine Protein 30 (1+) mg/dL (Neg-Trace)
[2022-01-08 12:43] LABS: Anion Gap 15 (12-20); Blood Urea Nitrogen 7 mg/dL (9-16); Calcium 9.8 mg/dL (8.4-10.2); Carbon Dioxide 28 mmol/L (22-29); Chloride 105 mmol/L (96-108); Estimated Glomerular Filt Rate > 60; Glucose Random 97 mg/dL (60-115); Potassium 4.3 mmol/L (3.3-5.1); Sodium 144 mmol/L (135-145)
[2022-01-08 13:23] LABS: Bacteria Urine None Seen (None Seen); Hyaline Casts Urine 0-2 /LPF (0-2); UACC Culture Trigger YES
[2022-01-11 00:42] LABS: TS Negative Control Passed; TS Panel A 0; TS Panel B 0; TS Positive Control Passed; TSpotTB Negative (Negative)
== END 2022-01-08 11:18 | disposition home or self-care (01) ==
LOC: HO.LAB 11:17
PROVIDERS: Absent Provider Physician Assistant; PCP Internal Medicine; Visit Provider Internal Medicine
DX: Z01.818 Encounter for other preprocedural examination (principal); R30.0 Dysuria; Z11.1 Encounter for screening for respiratory tuberculosis
CPT/HCPCS: 36415; 80048; 81001; 81003; 85027; 85610; 86481; 87086

== ENCOUNTER 2022-05-15 14:09 | Outpatient (REF) | payer MEDICARE, MEDICAID, SELFPAY ==
--- NOTE | ~2022-05-15 | XR_ITS ---
EXAMINATION: XR KNEE, LEFT CLINICAL INFORMATION: Left knee pain. COMPARISON: None TECHNIQUE: Three views of the left knee. FINDINGS: Mild medial femoral-tibial joint space narrowing is seen. There is no acute fracture or dislocation. The joint spaces are unremarkable. Trace suprapatellar joint effusion. The soft tissues are unremarkable. XR/XR knee LT 3V IMPRESSION: Mild medial femoral-tibial joint space narrowing may be degenerative in nature suggesting osteoarthritis. Trace suprapatellar joint effusion. No acute osseous abnormality.
== END 2022-05-15 14:10 | disposition home or self-care (01) ==
LOC: HO.XRAY 14:09
PROVIDERS: PCP Internal Medicine; Visit Provider Internal Medicine
DX: S83.92XA Sprain of unspecified site of left knee, initial encounter (principal); X58.XXXA Exposure to other specified factors, initial encounter; Y93.9 Activity, unspecified; Y92.9 Unspecified place or not applicable; Y99.9 Unspecified external cause status
CPT/HCPCS: 73562

== ENCOUNTER 2022-10-15 07:40 | Outpatient (REF) | payer MEDICARE, MEDICAID, SELFPAY ==
[2022-10-15 08:02] LABS: MANUAL DIFF FLAG NO
[2022-10-15 08:27] LABS: Basophils Absolute Auto 0.1 X10*3/uL (0.0-0.2); Eosinophils Absolute Auto 0.2 X10*3/uL (0.0-0.4); Eosinophils Percent Auto 2.6 % (0-4); Hematocrit 36.9 % (37.0-47.0); Hemoglobin 11.9 g/dl (12.0-16.0); Imm Gran Abs Auto 0.04 X10*3/uL (0.00-0.03); Imm Gran Pct Auto 0.5 % (0.0-0.4); Lymphocytes Absolute Auto 2.6 X10*3/uL (1.2-4.9); Lymphocytes Percent Auto 31.4 % (20-40); Mean Corpuscular HGB Conc 32.2 g/dl (31.0-35.0); Mean Corpuscular Hemoglobin 29.2 pg (27.0-33.0); Mean Corpuscular Volume 90.7 fL (80.0-98.0); Mean Platelet Volume 11.6 fL (9.4-12.3); Monocytes Absolute Auto 0.9 X10*3/uL (0.1-1.2); Monocytes Percent Auto 10.5 % (2-11); Neutrophils Absolute Auto 4.4 x10*3/uL (2.0-8.3); Platelet Count 257 X10*3/uL (160-400); Red Blood Count 4.07 X10*6/uL (4.20-5.50); White Blood Count 8.2 X10*3/uL (4.8-10.8)
[2022-10-15 09:03] LABS: Rheumatoid Factor < 13.0 IU/mL (<15.0)
[2022-10-15 09:05] LABS: Erythrocyte Sedimentation Rate 16 MM/HR (0-20)
[2022-10-15 09:07] LABS: Alanine Aminotransferase 9 U/L (0-31); Albumin Level 4.1 g/dL (3.5-5.0); Alkaline Phosphatase 80 U/L (39-117); Anion Gap 14 (12-20); Aspartate Amino Transferase 18 U/L (5-31); Bilirubin Total 0.4 mg/dL (0.0-1.0); Blood Urea Nitrogen 11 mg/dL (9-16); C Reactive Protein 1.94 mg/dL (< or = 0.50); Calcium 9.5 mg/dL (8.4-10.2); Carbon Dioxide 24 mmol/L (22-29); Chloride 104 mmol/L (96-108); Cholesterol 233 mg/dL; Estimated Glomerular Filt Rate > 60; Glucose Fasting 93 mg/dL (60-99); Glucose Random 93 mg/dL (60-115); HDL Cholesterol 45 mg/dL; LDL Cholesterol Calculated 155 mg/dl; Potassium 3.8 mmol/L (3.3-5.1); Sodium 138 mmol/L (135-145); Total Protein 7.2 g/dL (6.5-8.0); Triglycerides 165 mg/dL
[2022-10-15 09:16] LABS: Appearance Urine Clear; Color Urine Yellow; Glucose Urine UA Negative (Negative); Leukocyte Esterase Urine Small (1+) (Negative); Nitrite Urine Negative (Negative); Specific Gravity - Urine 1.025 (1.005-1.025); UMIC TRIGGER UACC YES; Urine Blood Trace (Negative); Urine Ketones Trace mg/dL (Negative); Urine Protein Trace mg/dL (Neg-Trace)
[2022-10-15 09:22] LABS: Bacteria Urine None Seen (None Seen); Hyaline Casts Urine 0-2 /LPF (0-2); UACC Culture Trigger YES
[2022-10-15 09:27] LABS: TSH reflex Free T4 2.86 uIU/mL (0.32-4.0); Vitamin D 25-OH Total 45.5 ng/mL (>30)
[2022-10-21 14:32] LABS: Anti Nuclear Antibody Screen NEGATIVE (NEGATIVE)
== END 2022-10-15 07:41 | disposition home or self-care (01) ==
LOC: HO.LAB 07:40
PROVIDERS: Internal Medicine; Visit Provider Nurse Practitioner Family
DX: I10 Essential (primary) hypertension (principal); E78.00 Pure hypercholesterolemia, unspecified; E55.9 Vitamin D deficiency, unspecified; M25.50 Pain in unspecified joint; R30.0 Dysuria
CPT/HCPCS: 36415; 80053; 80061; 81001; 82306; 84443; 85025; 85652; 86038; 86140; 86431; 87086

== ENCOUNTER 2023-01-04 09:01 | Outpatient (AMB) | payer MEDICARE, MEDICAID, SELFPAY ==
--- NOTE | 2023-01-04 09:07 | A.OFFVIS_ITS ---
Intake Vital Signs 01/04/23 09:09 Height 5 ft 9 in Weight 196 lb 3.382 oz BMI 29.0 BP 119/57 L Blood Pressure Location Lt brachial Position Sitting Pulse 85 Intake Visit Reasons: Med Reconcile Intake Note: Macey presents in the office as a follow up. CC: She states she cannot digest meat and occasionally she gets bile that comes up. Allergies adhesive tape [TAPE,ADHESIVE] Allergy (Severe, Verified 01/04/23 09:10) ANAPHYLAXIS diphenhydramine [From BENADRYL] Allergy (Severe, Verified 01/04/23 09:10) ANAPHYLAXIS erythromycin base [ERYTHROMYCIN BASE] Allergy (Severe, Verified 01/04/23 09:10) ANAPHYLAXIS latex [LATEX] Allergy (Severe, Verified 01/04/23 09:10) ANAPHYLAXIS levofloxacin [From LEVAQUIN] Allergy (Severe, Verified 01/04/23 09:10) ANAPHYLAXIS meperidine [From DEMEROL] Allergy (Severe, Verified 01/04/23 09:10) ANAPHYLAXIS morphine [MORPHINE] Allergy (Unknown, Verified 01/04/23 09:10) UNKNOWN RED DYE IN TYLOX Allergy (Unknown, Uncoded 01/04/23 09:10) Unknown pollen Allergy (Uncoded 01/04/23 09:10) Sneezing HPI Med Reconcile HPI Details ? RECAP ? Her main complaint was constant pain, dysphagia, nausea/vomiting ? she feels things started after her gastric bypass surgery 2013 ? pain is in epigastrium, pain is 10/10, there every day and worsened by food ? she awakens at night due to the pain severity ? the pain is sharp and burning, feels like a contraction ? feels like being stabbed by a sword ? she was told she had ulcers , EGD on file 2017 with anastomotic ulcers, she did have another egd 2018 no report but she said still showed ulcers ? she has tried pantoprazole, and carafate ? she has normal bowel habits, no diarrhea or constipation, although if eats certain fodo she can get diarrhea ? she is also on gabapentin 600 mg OD for years for foot pain and kaveh ropathy, also on suboxone for pain ? she recall that before RYGB she felt normal and had no complaints ? brother has breast ca aged 38--no gene testing doen at time (22 yrs ago). ? ? ?TESTS: ? h pylori neg ? celiac neg ? fecal elastase low ? fecal fat pos ? fecal regi 311 ? Upper GI series- patent GJ, no stricture or intussception ? EGD: 03/31/2019--severe marginal ulceration--rept 3-6 months ? colonoscopy- 03/2019--adenoma removed, not recovered--rept 5 yrs ? MRI 04/2019-- mild enteritis, atrophic pancreas no focal lesion ? ? ?At f/u 09/2019--- ? she feels pain is getting worse again, variabel severity of pain, not as bad today as before ? appetite is poor, not ate for 3 d ? she is having nausea and vomiting ? taking yoghurts ? she has been avoiding hospital due to covid ? she was constipated ? she has been on oxycodone 10 mg, stopped suboxone now ? taking carafate ? avoiding lactulose and nsaid ? EGD was arranged---11/2019--large matthew grade III ulcer 15-20 mm at anastomosis ? advised on smoking cessation, PPI, carafte and PPi regimens with pepcid at night, bx neg of for h pylori or neoplasia she was on movantik as well At f/u? 06/2020: she feels better overall, but some days can have intense pain, she rocks, and crosses legs and attacks can last for 2 days son makes her eat, and she manages toast and eggs she avoids meats as it feels like getting stuck bentyl which helps her pain a lot, takes TID some times can have nausea and vomiting she still smokes, variable amounts, smokes more if in pain still takes famotidine at night and carafate on pain patch still taking movantik she has constipation and drinks coca cola which helps her a lot I did repeat EGD 10/2020 due to ongoing pain, plus she was still smoking This revealed a large matthew grade III ulcer on jejunal side Other data: MRI 03/2021---normal pancreas I did a repeat EGD and colonoscopy 12/2021 Endoscopy Findings: retained suture-removed anastomotic ulcer Colonoscopy Findings: polyp internal hemorrhoids path: tubular adenoma ? INTERIM: she feels well as long as she watches her diet and avoids meats appetite is good, weight stable no nausea or vomiting no abdominal pain unless takes meat still smoking, 4-5 cigs/day takes linaclotide prn for constipation, doesnt use that often, taking PPI as prescribed and works well along with famotidine and bentyl she is taking centrum MV EXAM: GENERAL: The patient is well developed and nontoxic. VITAL SIGNS:see workflow HEENT: Nonicteric sclerae, PERRLA, EOMI. Oropharynx clear. Moist mucous membranes. Conjunctivae appear well perfused. No thyroid mass. CHEST: Chest wall is nontender. HEART: Regular rate and rhythm without murmurs. LUNGS: Clear to auscultation bilaterally. ABDOMEN: Soft, positive bowel sounds, nontender, no organomegaly.no flank tenderness SKIN: No rash, no excessive bruising, petechiae, or purpura. NEUROLOGIC: Cranial nerves II-XII intact without motor/sensory deficit. Psych: nml ? Assessment & Plan 1/ hx of stomach ulcer, smoking hx, back on PPI and carafate 2/ constipation, no longer on opioids, m ay have slow transit, responds well to linaclotide prn 3/ tubular adenoma PLAN: 1/ cont with PPI, open capsule and can m ix with yoghurt 2/ discussed high fiber diet for hemorrh oids 3/ repeat colonoscopy in 3-4 yrs due to polyp 4/ talked about creon, can trial if has further sx and alpha gal panel neg PFSH Medical History (Updated 01/04/23 @ 09:41 by Tawnya Scott MD) Epidermal cyst Obesity (BMI 30-39.9) Derangement of ankle, left Neuropathy Thoracic radiculopathy Superficial gastritis without hemorrhage Pure hypercholesterolemia Surgical History (Updated 01/04/23 @ 09:10 by STEPHAN Andrade) Hx of toe surgery Hx of colonoscopy History of esophagogastroduodenoscopy (EGD) History of surgery History of oral surgery History of eye surgery H/O gastric bypass History of foot surgery History of elbow surgery History of cholecystectomy History of tonsillectomy Family History Mother Diabetes mellitus Father Cardiovascular disease Brother Asbestosis Mesothelioma Sister Mental health problem Other Substance abuse Social History Household Members: Family and Children Housing: House Are you a primary medicare nurse to a significant other at home: No Do you presently have visiting nurse or other home services: No Alcohol intake: current Alcohol intake frequency: holidays/special occasions only Alcohol type: wine Patient Tobacco Use Status: Current everyday Tobacco user Tobacco use type: Cigarette Cigarettes Per Day: 10 Years Smoked: 54 e-Cigarette/Vaping Use: Never Used Second Hand Smoke Exposure: Yes Substance Use Type: Marijuana service: No Current occupational status: disabled Cognitive needs: Yes (cane) Hearing needs: No Vision needs: Yes Physical Exam Vital Signs: Last Vital Signs Pulse 85 01/04/23 09:09 BP 119/57 L 01/04/23 09:09 BMI result Body Mass Index 29.0 Assessment & Plan Assessment & Plan (1) Allergy to alpha-gal: Code(s): Z91.018 - Allergy to other foods Orders: Orders Other Ref Test - [facility] [place] Z91.018 - Allergy to other foods Medications: Refilled dicyclomine 20 mg (2 x 10 mg) PO BID 120 caps 5RF famotidine 40 mg PO BEDTIME 90 days PRN 90 tabs 5RF heartburns omeprazole open capsule and mix granules with apple sauce and then take 40 mg PO BID 90 caps 5RF Coding Level of Care Code Est Pt Level 3 (44381) Diagnoses Allergy to alpha-gal Z91.018
[2023-01-04 09:09] VITALS: BP 119/57; PULSE 85; BMI 29.0
== END 2023-01-04 09:46 | disposition home or self-care (01) ==
PROVIDERS: Visit Provider Internal Medicine Gastroenterology
DX: Z91.018 Allergy to other foods (principal)
CPT/HCPCS: 99213

== ENCOUNTER → 2023-01-04 09:01 | Outpatient (BNVA) | payer MEDICARE, MEDICAID, SELFPAY | PROVIDERS: Visit Provider Internal Medicine Gastroenterology | DX: Z91.018 Allergy to other foods (principal) | CPT/HCPCS: 99212 ==

== ENCOUNTER 2023-01-30 14:48 | Outpatient (AMB) | payer MEDICARE, MEDICAID, SELFPAY ==
[2023-01-30 15:01] VITALS: BP 122/90; PULSE 82; O2SAT 96; BMI 29.2
--- NOTE | 2023-01-30 15:01 | A.OFFPC_ITS ---
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 Accompanied by: Self / Same As Patient Allergies adhesive tape [TAPE,ADHESIVE] Allergy (Severe, Verified 02/04/23 00:27) ANAPHYLAXIS diphenhydramine [From BENADRYL] Allergy (Severe, Verified 02/04/23 00:27) ANAPHYLAXIS erythromycin base [ERYTHROMYCIN BASE] Allergy (Severe, Verified 02/04/23 00:27) ANAPHYLAXIS latex [LATEX] Allergy (Severe, Verified 02/04/23 00:27) ANAPHYLAXIS levofloxacin [From LEVAQUIN] Allergy (Severe, Verified 02/04/23 00:27) ANAPHYLAXIS meperidine [From DEMEROL] Allergy (Severe, Verified 02/04/23 00:27) ANAPHYLAXIS morphine [MORPHINE] Allergy (Unknown, Verified 02/04/23 00:27) UNKNOWN RED DYE IN TYLOX Allergy (Unknown, Uncoded 02/04/23 00:27) Unknown pollen Allergy (Uncoded 02/04/23 00:27) Sneezing Medication List - Last Reconciled 02/04/23 by Ronni Kingsley MD albuterol sulfate 90 mcg/actuation (Ventolin HFA) 2 puffs inhalation Q6H PRN amoxicillin 500 mg PO Q8H 7 days calcium carbonate-vitamin D3 600 mg-10 mcg (400 unit) (Calcium 600 + D(3)) 1 tab PO QID 30 days diclofenac sodium 1% 2 - 3 grams topical TID dicyclomine 20 mg (2 x 10 mg) PO BID famotidine 40 mg PO BEDTIME PRN 90 days gabapentin 800 mg PO TID whbtobqa-fjw-epsc-FA-vit K-lut 8 mg iron-400 mcg-50 mcg (Centrum Silver Women) 1 tab PO DAILY nortriptyline 10 mg PO BEDTIME 30 days omeprazole 40 mg PO BID ondansetron 4 mg PO Q8H PRN sucralfate 1 g PO QID Tobacco use date assessed: 01/30/23 Dental Screening Dental Screen Date: 01/30/23 Did you have a dental visit in the last 12 months?: Yes Did you have a dental problem in the last 6 months where you did not have access to dental care?: No Was dental information given to patient?: Patient has dentist HPI right hip and hand pain HPI Details Patient comes in today for her follow up visit - she was last seen by me almost a year ago on 02/09/2022 via telehealth States that she has been experiencing a recurrent headache/sharp pain over the left side of her head for the past 4 weeks and she feels that these are getting worse lately Patient adds that she felt a lump just inside the opening of her left ear a few weeks ago around the same time as her left-sided headaches/pain and that the lump was draining some pus then She went to the ER at [facility] a couple of weeks ago for further evaluation and was sent for a head CT, which came out negative She was then discharged back home with instructions to follow up with her PCP States that her left-sided headaches have not gotten any better since her ER visit and she also still has recurrent sharp pains coming from her left ear - is concerned that the pus-draining lesion is still there She denies any fever or sore throat; denies any dizziness Denies any chest pains, no SOB Still has on and off nausea/vomiting, denies any abdominal pain No change in bowel habits noted Still has chronic low back pain and multiple joint pains - is on Gabapentin [facility] Medical History (Updated 02/04/23 @ 00:53 by Ronni Kingsley MD) Migraine Epidermal cyst Obesity (BMI 30-39.9) Derangement of ankle, left Neuropathy Thoracic radiculopathy Superficial gastritis without hemorrhage Pure hypercholesterolemia Surgical History Hx of toe surgery Hx of colonoscopy History of esophagogastroduodenoscopy (EGD) History of surgery History of oral surgery History of eye surgery H/O gastric bypass History of foot surgery History of elbow surgery History of cholecystectomy History of tonsillectomy Family History Mother Diabetes mellitus Father Cardiovascular disease Brother Asbestosis Mesothelioma Sister Mental health problem Other Substance abuse Social History Household Members: Family and Children Housing: House Are you a primary acute care registered nurse to a significant other at home: No Do you presently have visiting nurse or other home services: No Alcohol intake: current Alcohol intake frequency: holidays/special occasions only Alcohol type: wine Patient Tobacco Use Status: Current everyday Tobacco user Tobacco use type: Cigarette Cigarettes Per Day: 10 Years Smoked: 54 e-Cigarette/Vaping Use: Never Used Second Hand Smoke Exposure: Yes Substance Use Type: Marijuana service: No Current occupational status: disabled Cognitive needs: Yes (cane) Hearing needs: No Vision needs: Yes Questionnaire PHQ-9 Over the last 2 weeks, how often have you been bothered by any of the following problems? 1. Little interest or pleasure in doing things: not at all 2. Feeling down, depressed, or hopeless: not at all 3. Trouble falling or staying asleep, or sleeping too much: not at all 4. Feeling tired or having little energy: not at all 5. Poor appetite or overeating: not at all 6. Feeling bad about yourself - or that you are a failure or have let yourself or your family down: not at all 7. Trouble concentrating on things, such as reading the newspaper or watching television: not at all 8. Moving or speaking so slowly that other people could have noticed. Or the opposite - being so fidgety or restless that you have been moving around a lot more than usual: not at all 9. Thoughts that you would be better off or of hurting yourself in some way: not at all Total score: 0 Depression Screening Interpretation: Negative Depression Screening Done: Yes 32077 - PHQ-9 Billing: Yes Source: Developed by Drs. Lan Brar, Ava Grey, Brennen Marte and colleagues, with an educational alex from [employer]. Thrive Questionnaire Date Thrive assessed: 01/30/23 I am a: Patient What is your living situation today?: I have a steady place to live Within the past 12 months, did the food you bought not last and you didn't have the money to get more?: Never true Within the past 12 months, did you worry whether your food would run out before you got money to buy more?: Never true Do you have trouble paying for medicines?: No Do you have trouble getting transportation to medical appointments?: No Do you have trouble paying your heating and electricity bill?: No Do you have trouble taking care of your child, family member or friend?: No Do you have trouble with day-to-day activities such as bathing, preparing meals, shopping, managing finances, etc.?: No Are you currently unemployed and looking for a job?: No Are you interested in more education?: No Please select the resources that you would like help with: None Currently or been in a relationship where the following occur: no concerns reported AUDIT C Alcohol Use Questionnaire (AUDIT-C) 1. How often do you have a drink containing alcohol?: Monthly or less 2. How many drinks containing alcohol do you have on a typical day when you are drinking?: 1 or 2 3. How often do you have six or more drinks on one occasion?: Never Total Score: 1 Score Reviewed/Action Taken: Yes MELANIE-7 AMB Questionnaire MELANIE-7 Date MELANIE - 7 assessed: 01/30/23 Feeling nervous, anxious, or on edge: 0 = Not at all Not being able to stop or control worryin = Not at all Worrying too much about different things: 0 = Not at all Trouble relaxin = Not at all Being so restless that it is hard to sit still: 0 = Not at all Becoming easily annoyed or irritable: 0 = Not at all Feeling afraid as if something awful might happen: 0 = Not at all Total MELANIE-7 score (0-4 normal; 5-9 mild; 10-14 moderate; 15-21 severe): 0 Source: Developed by Drs. Lan Brar, Ava Grey, Brennen Marte and colleagues, with an educational alex from [employer]. Review of Systems Const Denies chills, Reports fatigue, Denies fever(s) and Reports headache(s) (recurrent, left-sided - see HPI) Eyes Denies blurry vision ENT Denies dysphagia, Denies dizziness, Reports otalgia (left side), Reports headache(s) (recurrent, left-sided - see HPI), Denies neck pain, Denies odynophagia, Denies sinus pain and Denies sore throat Card Denies chest pain, Denies palpitations and Denies dyspnea Resp Denies cough and Denies dyspnea GI Denies abdominal pain, Reports constipation (symptoms improving with Movantik), Denies dysphagia, Denies heartburn, Denies diarrhea, Reports nausea (frequent), Denies odynophagia and Reports vomiting (occasionally) Denies difficulty voiding, Denies nocturia and Denies dysuria Musc Reports back pain, Reports arthralgias (left ankle/foot - chronic; right shoulder, right hip) and Denies neck pain Skin/Breast Denies rash Neuro Denies dizziness and Reports headache(s) (recurrent, left-sided - see HPI) Endo Reports fatigue and Denies palpitations Physical exam (Primary Care) Vital Signs: Last Vital Signs Pulse 82 01/30/23 15:01 BP 122/90 H 01/30/23 15:01 Pulse Ox 96 01/30/23 15:01 Oxygen Delivery Method Room Air 01/30/23 15:01 BMI result Body Mass Index 29.2 Tobacco/Smoking Status: Tobacco use Status Tobacco use date assessed 01/30/23 01/30/23 15:14 Patient Tobacco Use Status Current everyday Tobacco 01/30/23 15:14 Tobacco use type Cigarette 01/30/23 15:14 e-Cigarette/Vaping Use Never Used 01/30/23 15:14 PHQ-9: PHQ-9 Score PHQ-9: Total score 0 01/30/23 15:40 Depression Screening Interpretation: Negative Thrive Assessment: Date of Thrive Assessment Date Thrive assessed 01/30/23 01/30/23 15:14 Currently or been in a relationship where the following occur: no concerns reported Const General: no acute distress and alert HENMT Ears: TM's normal bilaterally, EAC's normal (in the right ear) and Abnormal EAC present ((+) small tender abscess near the opening of the EAC in the left ear) Throat: Yes posterior oropharynx normal and Yes tonsils normal (no TP congestion noted) Neck Neck: Yes no lymphadenopathy and Yes supple Resp Auscultation: clear to auscultation bilaterally, no rales and no wheezes Cardio Rate: regular rate Rhythm: regular rhythm Heart sounds: no murmurs GI Palpation (GI): Soft to palpation and nontender Auscultation: normal bowel sounds Back/Spine/Pelvis Thoracic/Lumbar Spine: lumbar spinal tenderness Skin Rashes: no rashes Extrem General: Yes no clubbing, cyanosis or edema Right upper extremity: shoulder/upper arm Details: tenderness Location: of the A-C joint Right lower extremity: hip/thigh Details: tenderness Location: of the hip Left lower extremity: ankle Assessment and Plan Assessment & Plan (1) Migraine: Code(s): G43.909 - Migraine, unspecified, not intractable, without status migrainosus Qualifiers: Migraine type: unspecified Status migrainosus presence: without status migrainosus Intractability: not intractable Qualified Code(s): G43.909 - Migraine, unspecified, not intractable, without status migrainosus Plan: Patient is advised that her headaches are also likely in part due to migraine and not just exclusively due to her left ear infection She had a negative head CT done at the ER at [facility] a couple of weeks ago Will start her on a trial of Nortriptyline 10 mg Q HS for headache prophylaxis Will also consider referring her to neurology for further evaluation and management if Nortriptyline does not help with her headaches (2) Abscess of left ear canal: Code(s): H60.02 - Abscess of left external ear Plan: Advised that the abscess in her left ear canal appear to be gradually resolving as the drainage from it now appears minimal Will start her on Amoxicillin 500 mg Q 8 hours x 7 days to help clear this up completely (3) Pure hypercholesterolemia: Code(s): E78.00 - Pure hypercholesterolemia, unspecified Plan: Reinforced low cholesterol diet Patient was on Atorvastatin 40 mg QD before but she appears to have stopped taking this at some point recently Will recheck her labs and fasting lipids in 3 to 4 months for follow up (4) Superficial gastritis without hemorrhage: Code(s): K29.30 - Chronic superficial gastritis without bleeding Qualifiers: Chronicity: unspecified Qualified Code(s): K29.30 - Chronic superficial gastritis without bleeding Plan: Dietary restrictions reinforced Continue Famotidine 40 mg BID, Sucralfate 1 gm QID and Omeprazole 40 mg BID S/P EGD and colonoscopy on 2021 - (+) retained suture was removed from the gastric pouch and the small anastomotic ulcer on the brittany limb was much improved from previous; colonoscopy was normal except for a small polyp that was removed (tubular adenoma) MRI of the abdomen done last year also came back normal Follow up with GI as scheduled (5) Thoracic radiculopathy: Code(s): M54.14 - Radiculopathy, thoracic region Plan: Continue Gabapentin 800 mg TID Used to take opioids for pain but lately has been smoking marijuana since she was suspended from the opioid program indefinitely - states that marijuana is helping a lot and she smokes them only as needed (6) Neuropathy: Code(s): G62.9 - Polyneuropathy, unspecified Plan: States that Gabapentin and marijiuana are helping with her chronic pain (7) Derangement of ankle, left: Code(s): M24.9 - Joint derangement, unspecified Plan: S/P removal of hardware from the left ankle last year - is still experiencing recurrent pain in the ankle Continue Gabapentin 800 mg TID and Tramadol 50 mg BID PRN Patient is also smoking marijuana as needed currently to help with her chronic pain Follow up with orthopedics as scheduled (8) Constipation: Code(s): K59.00 - Constipation, unspecified Qualifiers: Constipation type: unspecified constipation type Qualified Code(s): K59.00 - Constipation, unspecified Plan: Encouraged increased oral fluids and dietary fiber Continue Linzess 145 mcg QD (9) Status post gastric bypass for obesity: Code(s): Z98.84 - Bariatric surgery status Plan: Continue Multivitamins, calcium and vitamin D supplements daily (10) Obesity (BMI 30-39.9): Comment: S/P gastric bypass in 2014 Code(s): E66.9 - Obesity, unspecified Plan: Reinforced diet/exercise as tolerated/lose weight - is unable to exercise much due to her back issues Plan To return in 3 to 4 months for her annual physical examination Orders: Orders Vitamin B12 and Folate 05/18/23 E53.8 - Deficiency of other specified B group vitamins, G43.909 - Migraine, unspecified, not intractable, without status migrainosus, Z00.00 - Encounter for general adult medical examination without abnormal findings Complete Blood Count Auto Diff 05/18/23 G43.909 - Migraine, unspecified, not intractable, without status migrainosus, Z00.00 - Encounter for general adult medical examination without abnormal findings Comprehensive [place]. Panel Fast 05/18/23 E78.00 - Pure hypercholesterolemia, unspecified, G43.909 - Migraine, unspecified, not intractable, without status migrainosus, Z00.00 - Encounter for general adult medical examination without abnormal findings Lipid Panel 05/18/23 E78.00 - Pure hypercholesterolemia, unspecified, G43.909 - Migraine, unspecified, not intractable, without status migrainosus, Z00.00 - Encounter for general adult medical examination without abnormal findings TSH reflex Free T4 05/18/23 E78.00 - Pure hypercholesterolemia, unspecified, G43.909 - Migraine, unspecified, not intractable, without status migrainosus, Z00.00 - Encounter for general adult medical examination without abnormal findings UA CC w/rflx Micro + Cult 05/18/23 G43.909 - Migraine, unspecified, not intractable, without status migrainosus, R30.0 - Dysuria, Z00.00 - Encounter for general adult medical examination without abnormal findings Vitamin D 25-OH Total 05/18/23 E55.9 - Vitamin D deficiency, unspecified, G43.909 - Migraine, unspecified, not intractable, without status migrainosus, Z00.00 - Encounter for general adult medical examination without abnormal findings Medications: New amoxicillin 500 mg PO Q8H 7 days 21 caps 0RF nortriptyline 10 mg PO BEDTIME 30 days 30 caps 1RF Coding Level of Care Code Est Pt Level 4 (83351) Diagnoses Migraine without status migrainosus, not intractable, unspecified migraine type G43.909 Migraine type: unspecified Status migrainosus presence: without status migrainosus Intractability: not intractable Abscess of left ear canal H60.02 Pure hypercholesterolemia E78.00 Superficial gastritis without hemorrhage, unspecified chronicity K29.30 Chronicity: unspecified Thoracic radiculopathy M54.14 Neuropathy G62.9 Derangement of ankle, left M24.9 Constipation, unspecified constipation type K59.00 Constipation type: unspecified constipation type Status post gastric bypass for obesity Z98.84 Obesity (BMI 30-39.9) E66.9
== END 2023-01-30 15:56 | disposition home or self-care (01) ==
PROVIDERS: PCP Internal Medicine; Visit Provider Internal Medicine
DX: G43.909 Migraine, unspecified, not intractable, without status migrainosus (principal); H60.02 Abscess of left external ear; E66.9 Obesity, unspecified; Z68.29 Body mass index [BMI] 29.0-29.9, adult; E78.00 Pure hypercholesterolemia, unspecified; K29.30 Chronic superficial gastritis without bleeding; M54.14 Radiculopathy, thoracic region; G62.9 Polyneuropathy, unspecified; M24.9 Joint derangement, unspecified; K59.00 Constipation, unspecified; Z98.84 Bariatric surgery status
CPT/HCPCS: 99214

== ENCOUNTER 2023-02-26 10:05 | Outpatient (AMB) | payer MEDICARE, MEDICAID, SELFPAY ==
[2023-02-26 10:11] VITALS: BP 118/86; PULSE 80; TEMP 36.1; O2SAT 97; BMI 28.9
--- NOTE | 2023-02-26 10:11 | MHC.OFFVIS ---
Intake Vital Signs 02/26/23 10:11 Height 5 ft 9 in Weight 195 lb 15.855 oz BMI 28.9 BP 118/86 Blood Pressure Location Rt brachial Position Sitting Pulse 80 Pulse Source Pulse Oximeter Temp 97 F Temp Source Skin Pulse Oximetry (%) 97 Oxygen Delivery Method Room Air Intake Visit Reasons: Pain in unspecified joint Intake Note: New patient referred to us for joint pain. 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 Hand Required: No Accompanied by: Self / Same As Patient Allergies adhesive tape [TAPE,ADHESIVE] Allergy (Severe, Verified 02/26/23 10:11) ANAPHYLAXIS diphenhydramine [From BENADRYL] Allergy (Severe, Verified 02/26/23 10:11) ANAPHYLAXIS erythromycin base [ERYTHROMYCIN BASE] Allergy (Severe, Verified 02/26/23 10:11) ANAPHYLAXIS latex [LATEX] Allergy (Severe, Verified 02/26/23 10:11) ANAPHYLAXIS levofloxacin [From LEVAQUIN] Allergy (Severe, Verified 02/26/23 10:11) ANAPHYLAXIS meperidine [From DEMEROL] Allergy (Severe, Verified 02/26/23 10:11) ANAPHYLAXIS morphine [MORPHINE] Allergy (Unknown, Verified 02/26/23 10:11) UNKNOWN RED DYE IN TYLOX Allergy (Unknown, Uncoded 02/26/23 10:11) Unknown pollen Allergy (Uncoded 02/26/23 10:11) Sneezing HPI HPI Comments History of Present Illness Details Ms. Choudhury is 62 year-old female with medical history significant for neuropathy, thoracic radiculopathy, contstipation and hypercholestermia. She is a patient of Dr. Kingsley, wishing to transfer care from the arthritis treatment center in [place] because she has difficulty getting an appointment there. She presents today for evaluation of arthritis pain in hands, hip, lower back and legs. Patient requesting referral for cortisone injections. Patient states previously follow by pain management but she was off by one pill and got kicked out . Patient currently using diclofenac cream for the pain and heating pad. Per patient she has been treated for osteoarthritis since 1985 when she 1st started getting injections in her shoulders for pain. She gets chronic injections to right shoulder and left hip and thumbs. Her thumb joints get swollen the most in her hands. 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 The injection does provide relief for the better part of 3 weeks to a month. Patient also had a severe fall in the past and has had 7-12 surgeries to reconstruct her left ankle. She currently takes gabapentin 800 mg 3 times a day for her pain and uses diclofenac topical cream. Her family history is significant for psoriasis her sister who has active PsO. She also had psoriasis when she was 16 years old it has not returned since she was given topical cream. Per psoriasis she had PsO on her scalp, elbows and knees. The patient reports she has had to have esophagus stretched 2 times as a part of the EGD examinations because sometimes food gets stuck or it is difficult to swallow. She has not had the happen recently. She takes omeprazole and famotidine for stomach ulcers. She had cervical cancer at age of 16 and had a hysterectomy. Her son was born as a test tube baby [facility] where she worked for 32 years. 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 Patient emphatically states that due to the condition of her lower back her doctors told her never to do physical therapy. When she is at home she barely walks around because of the pain. She mainly stays in bed. Her son takes her out for a walk once a week. She mainly uses a wheelchair for mobility and uses the cane to balance when walking, due to her left ankle. She does knitting to keep her hands from getting stiff. Patient denies Raynaud's phenomenon, butterfly rash on face or other rashes; denies photosensitivity - getting sick or developing a rash from being out in the sun; denies blood or froth in urine; patient denies hx of SOB, chest pain. Patient denies hx of Carditis or Pleuritis. Patient denies any history of DVT/PE. Denies unknown fevers, excessive fatigue, unexplained weight-loss or weight-gain Denies: thinning hair or hair loss, hx of rashes Denies: dry, itchy eyes, red burning eyes needing steroids to treat; dry mouth, mouth sores or ulcers; nose bleed; ringing in the ear, Denies blood or mucous in stool; nausea, chronic vomiting and diarrhea Malignancy screening: Colonoscopy : Y Mammogram Y [facility] Medical History (Updated 02/26/23 @ 10:43 [facility] Pain in joint, multiple sites Arthritis, multiple joint involvement Migraine Epidermal cyst Obesity (BMI 30-39.9) Derangement of ankle, left Neuropathy Thoracic radiculopathy Superficial gastritis without hemorrhage Pure hypercholesterolemia Surgical History Hx of toe surgery Hx of colonoscopy History of esophagogastroduodenoscopy (EGD) History of surgery History of oral surgery History of eye surgery H/O gastric bypass History of foot surgery History of elbow surgery History of cholecystectomy History of tonsillectomy Family History Mother Diabetes mellitus Arthritis Father Cardiovascular disease Brother Asbestosis Mesothelioma Arthritis Sister Mental health problem Arthritis Other Substance abuse Household Members: Family and Children Housing: House Are you a primary career advisor to a significant other at home: No Do you presently have visiting nurse or other home services: No Alcohol intake: current Alcohol intake frequency: holidays/special occasions only Alcohol type: wine Patient Tobacco Use Status: Current everyday Tobacco user Tobacco use type: Cigarette Cigarettes Per Day: 5 Years Smoked: 54 e-Cigarette/Vaping Use: Never Used Second Hand Smoke Exposure: Yes Substance Use Type: Marijuana service: No Current occupational status: disabled Cognitive needs: Yes (cane) Hearing needs: No Vision needs: Yes Female Reproductive History Menstrual Total pregnancies: 11 Ab spontaneous: 10 Review of Systems Const All systems reviewed & are unremarkable except as noted in HPI and below Physical Exam Vital Signs: Last Vital Signs Temp 97 F 02/26/23 10:11 Pulse 80 02/26/23 10:11 BP 118/86 02/26/23 10:11 Pulse Ox 97 02/26/23 10:11 Oxygen Delivery Method Room Air 02/26/23 10:11 BMI result Body Mass Index 28.9 APPEARANCE: Patient in no acute distress. States in a lot of pain EYES no redness, pupils equal and reactive to light, eyelids normal EARS:? External ear normal, canal clear and tympanic membrane normal. NOSE/SINUS:? Airflow through both nares, no nasal discharge, no bleeding THROAT:? Oral mucosa moist, no ulcerations NECK:? No thyromegaly or masses, no adenopathy, trachea midline. HEART:? Regulrar rhythm, S1-S2 heard, no murmurs, rubs or gallops. LUNG:? Clear to percussion and auscultation ABD:? Normal bowel sounds, no organomegaly, masses or tenderness. EXTREMITIES:? No edema, no calf tenderness, normal peripheral pulses. NEURO:? Oriented and alert x3.? No focal weakness.? Reflexes symmetric.? Gait normal. SKIN:? There are no skin lesions evident. No objective signs of Raynaud's phenomenon. JOINT EXAM: ?Cervical Spine:.? Full range of motion without pain; Some tenderness. Thoracic Spine:.? No scoliosis.?Some tenderness on palpation. Lumbar Spine:.? Alignment normal.? Some tenderness on palpation. Chest Wall:.? No tenderness, swelling, increased warmth or erythema. Hands:.? Normal pain-free range of motion without tenderness, swelling, increased warmth or erythema. Able to make a full fist but has a weakened dental laboratory supervisor strength 3/5. Right MCP tenderness; mild osteophytes to DIPs Wrists:.? Normal pain-free range of motion without swelling, increased warmth or erythema. Left wrist tenderness with palpation Elbows:. Normal pain-free range of motion without tenderness, swelling, increased warmth or erythema. Shoulders:.?? Right: Limited range of motion most 95 degrees. Weakness throughout a 5. Left: Full range of motion without pain. No tenderness, weakness, swelling, increased warmth or erythema. Hips:.? Full range of motion without pain. Hip bursa:.? No tenderness. Knees:.?? Normal pain-free range of motion without tenderness, swelling, increased warmth or erythema.? There is no effusion or crepitation Ankles:.? Normal pain-free range of motion without tenderness, swelling, increased warmth or erythema. Feet:.? Normal pain-free range of motion without tenderness, swelling, increased warmth or erythema. Tender points:? No tenderness to digital palpation at the occiput, trapezius, second rib, lateral epicondyle, knees, greater trochanter and gluteal area bilaterally. ? 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 Choudhury,63 yoF is here for evaluation of her joint pain and transfer of care from the [facility] in [place]. Ms. Choudhury walks with a cane for stability given the reconstruction of her left ankle. Upon initial review of her medical records physical exam and oral history I suspect this patient may have psoriatic arthritis. Considering her clinical presentation which includes incidences of elevated CRP and ESR(recent 10/15/22 CRP 1.94), multiple joint injections especially to her shoulders, hips and thumbs, lower back pain, personal history of psoriasis and sister with active psoriasis, I think this is a reasonable assumption. Her pain is improved on Naprosyn but she does not take it daily for fear of GI concerns. I will discuss further and pursue PsA treatment with patient at next visit. Will also request records from the arthritis treatment center. #OA of multiple sites: There is no doubt patient has accompanying OA which she states she was told at age of [age] in her shoulders when she first started receiving injections. 05/2022 left Knee Xray also suggests Mild OA. Additionally mild DIP osteophytes observed on PE and weakened dental laboratory supervisor strength. She gets occasional swelling to bilateral thumbs. She can continue to Naprosyn as prescribed. She also uses Dicloflenac cream to lower back and alternates heat and cold compresses to joints. #Neuropathy: Patient has reduced sensation to touch in left foot. She also states numbness due to nerve damage secondary to over 10 surgeries to reconstruct her ankle. She takes gabapentin for neuropathy. I have spent over 60 mins researching history and reviewing records of other specialties, evaluating patient, ordering and documenting. Orders: Orders C Reactive Protein 02/26/23 M12.9 - Arthropathy, unspecified, M25.50 - Pain in unspecified joint HLA B27 02/26/23 M12.9 - Arthropathy, unspecified, M25.50 - Pain in unspecified joint Cyclic Citrullinated Peptide 02/26/23 M25.50 - Pain in unspecified joint XR hand LT min 3V 1 Week M12.9 - Arthropathy, unspecified, M25.50 - Pain in unspecified joint XR cervical spine 3V 1 Week M12.9 - Arthropathy, unspecified, M25.50 - Pain in unspecified joint Erythrocyte Sedimentation Rate 02/26/23 M12.9 - Arthropathy, unspecified, M25.50 - Pain in unspecified joint Creatine Kinase Total 02/26/23 M12.9 - Arthropathy, unspecified, M25.50 - Pain in unspecified joint Aldolase 02/26/23 M12.9 - Arthropathy, unspecified, M25.50 - Pain in unspecified joint XR hand RT min 3V 1 Week M12.9 - Arthropathy, unspecified, M25.50 - Pain in unspecified joint XR wrist RT 2V 1 Week M12.9 - Arthropathy, unspecified, M25.50 - Pain in unspecified joint XR wrist LT 2V 1 Week M12.9 - Arthropathy, unspecified, M25.50 - Pain in unspecified joint XR hip LT min 2V 1 Week M12.9 - Arthropathy, unspecified, M25.50 - Pain in unspecified joint XR hip RT min 2V 1 Week M12.9 - Arthropathy, unspecified, M25.50 - Pain in unspecified joint XR shoulder LT min 2V 1 Week M12.9 - Arthropathy, unspecified, M25.50 - Pain in unspecified joint XR shoulder RT min 2V 1 Week M12.9 - Arthropathy, unspecified, M25.50 - Pain in unspecified joint XR lumbar spine 2-3V 1 Week M12.9 - Arthropathy, unspecified, M25.50 - Pain in unspecified joint Coding Level of Care Code Est Pt Level 5 (84067) Diagnoses PSA (psoriatic arthritis) L40.50 Osteoarthritis involving multiple joints on both sides of body M15.9 Pain in joint, multiple sites M25.50 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
== END 2023-02-26 11:15 | disposition home or self-care (01) ==
PROVIDERS: PCP Internal Medicine; Visit Provider Nurse Practitioner Family
DX: L40.50 Arthropathic psoriasis, unspecified (principal); M25.50 Pain in unspecified joint; G58.8 Other specified mononeuropathies; G89.29 Other chronic pain; T14.8XXS Other injury of unspecified body region, sequela
CPT/HCPCS: 99205; 99215

== ENCOUNTER → 2023-02-26 10:05 | Outpatient (BNVA) | payer MEDICARE, MEDICAID, SELFPAY | PROVIDERS: PCP Internal Medicine; Visit Provider Nurse Practitioner Family | DX: L40.50 Arthropathic psoriasis, unspecified (principal); M25.50 Pain in unspecified joint; M15.9 Polyosteoarthritis, unspecified; G58.8 Other specified mononeuropathies; G89.29 Other chronic pain; T14.8XXS Other injury of unspecified body region, sequela | CPT/HCPCS: 36415; 82085; 82550; 85652; 86140; 86200; 86812; 99202 ==

== ENCOUNTER 2023-02-26 11:22 | Outpatient (REF) | payer MEDICARE, MEDICAID, SELFPAY ==
[2023-02-26 13:36] LABS: C Reactive Protein 0.95 mg/dL (< or = 0.50)
[2023-02-26 14:00] LABS: Erythrocyte Sedimentation Rate 25 MM/HR (0-20)
[2023-03-01 12:53] LABS: Cyclic Citrullinated Peptide <16 UNITS
[2023-03-02 00:43] LABS: HLA B27 Negative (Negative)
[2023-03-04 02:44] LABS: Aldolase 4.2 U/L (<=8.1)
== END 2023-02-26 11:23 | disposition home or self-care (01) ==
LOC: HO.10HDL 11:22
PROVIDERS: Visit Provider Nurse Practitioner Family
DX: Z13.89 Encounter for screening for other disorder (principal)
CPT/HCPCS: 36415; 82085; 82550; 85652; 86140; 86200; 86812

== ENCOUNTER 2023-05-28 12:19 | Outpatient (AMB) | payer MEDICARE, MEDICAID, SELFPAY ==
[2023-05-28 12:32] VITALS: BP 124/80; PULSE 71; O2SAT 99; BMI 28.9
--- NOTE | 2023-05-28 12:32 | MHC.PC.OV ---
Vital Signs 05/28/23 12:32 Height 5 ft 9 in Weight 195 lb 8 oz BMI 28.9 BP 124/80 Blood Pressure Location Lt brachial Position Sitting Pulse 71 Pulse Source Pulse Oximeter Pulse Oximetry (%) 99 Oxygen Delivery Method Room Air Intake Visit Reasons: /Clearance/Foot surgery on 06/07/2023 Feeder Operator Required: No Accompanied by: Self / Same As Patient Allergies adhesive tape [TAPE,ADHESIVE] Allergy (Severe, Verified 05/28/23 12:55) ANAPHYLAXIS diphenhydramine [From BENADRYL] Allergy (Severe, Verified 05/28/23 12:55) ANAPHYLAXIS erythromycin base [ERYTHROMYCIN BASE] Allergy (Severe, Verified 05/28/23 12:55) ANAPHYLAXIS latex [LATEX] Allergy (Severe, Verified 05/28/23 12:55) ANAPHYLAXIS levofloxacin [From LEVAQUIN] Allergy (Severe, Verified 05/28/23 12:55) ANAPHYLAXIS meperidine [From DEMEROL] Allergy (Severe, Verified 05/28/23 12:55) ANAPHYLAXIS morphine [MORPHINE] Allergy (Unknown, Verified 05/28/23 12:55) UNKNOWN RED DYE IN TYLOX Allergy (Unknown, Uncoded 05/28/23 12:55) Unknown pollen Allergy (Uncoded 05/28/23 12:55) Sneezing Medication List - Last Reconciled 05/28/23 by Ronni Kingsley MD albuterol sulfate 90 mcg/actuation (Ventolin HFA) 2 puffs inhalation Q6H PRN calcium carbonate-vitamin D3 600 mg-10 mcg (400 unit) (Calcium 600 + D(3)) 1 tab PO QID 30 days diclofenac sodium 1% 2 - 3 grams topical TID dicyclomine 20 mg (2 x 10 mg) PO BID famotidine 40 mg PO BEDTIME PRN 90 days gabapentin 800 mg PO TID [id number]-FA-vit K-lut 8 mg iron-400 mcg-50 mcg (Centrum Silver Women) 1 tab PO DAILY nortriptyline 10 mg PO BEDTIME 30 days omeprazole 40 mg PO BID ondansetron 4 mg PO Q8H PRN sucralfate 1 g PO QID Tobacco use date assessed: 05/28/23 Dental Screening Dental Screen Date: 05/28/23 Did you have a dental visit in the last 12 months?: Yes Did you have a dental problem in the last 6 months where you did not have access to dental care?: No Was dental information given to patient?: Patient has dentist HPI /Clearance/Foot surgery on 06/07/2023 HPI Details Patient comes in today at the request of Dr. Aliya Iraheta of [facility] for a preoperative medical examination for clearance for surgery She is scheduled for excision of an interdigital clavus between the right 4th and 5th toes under MAC Patient states that she feels okay She denies any headaches or dizziness Denies any chest pains, no SOB No nausea/vomiting, no abdominal pain No change in bowel habits noted She continues to complain of diffuse and multiple joint pains and is now following up with [facility] for these issues (used to go to [facility] in [place]); she is apparently currently being worked up for her joint pains and the possibility that she may have psoriatic arthritis Needs her Gabapentin Rx refilled She has some pending labs that were supposed to be done prior to her visit today but she has not yet gotten them done [facility] Medical History Pain in joint, multiple sites Arthritis, multiple joint involvement Migraine Epidermal cyst Obesity (BMI 30-39.9) Derangement of ankle, left Neuropathy Thoracic radiculopathy Superficial gastritis without hemorrhage Pure hypercholesterolemia Surgical History Hx of toe surgery Hx of colonoscopy History of esophagogastroduodenoscopy (EGD) History of surgery History of oral surgery History of eye surgery H/O gastric bypass History of foot surgery History of elbow surgery History of cholecystectomy History of tonsillectomy Family History Mother Diabetes mellitus Arthritis Father Cardiovascular disease Brother Asbestosis Mesothelioma Arthritis Sister Mental health problem Arthritis Other Substance abuse Social History Household Members: Family and Children Housing: House Are you a primary career orientation teacher to a significant other at home: No Do you presently have visiting nurse or other home services: No Alcohol intake: current Alcohol intake frequency: holidays/special occasions only Alcohol type: wine Patient Tobacco Use Status: Current everyday Tobacco user Tobacco use type: Cigarette Cigarettes Per Day: 5 Years Smoked: 54 e-Cigarette/Vaping Use: Never Used Second Hand Smoke Exposure: Yes Substance Use Type: Marijuana service: No Current occupational status: disabled Cognitive needs: Yes (cane) Hearing needs: No Vision needs: Yes Questionnaire PHQ-9 Over the last 2 weeks, how often have you been bothered by any of the following problems? 1. Little interest or pleasure in doing things: not at all 2. Feeling down, depressed, or hopeless: not at all 3. Trouble falling or staying asleep, or sleeping too much: not at all 4. Feeling tired or having little energy: not at all 5. Poor appetite or overeating: not at all 6. Feeling bad about yourself - or that you are a failure or have let yourself or your family down: not at all 7. Trouble concentrating on things, such as reading the newspaper or watching television: not at all 8. Moving or speaking so slowly that other people could have noticed. Or the opposite - being so fidgety or restless that you have been moving around a lot more than usual: not at all 9. Thoughts that you would be better off or of hurting yourself in some way: not at all Total score: 0 Depression Screening Interpretation: Negative Depression Screening Done: Yes [id number] - PHQ-9 Billing: Yes Source: Developed by Drs. Lan Brar, Ava Grey, Brennen Marte and colleagues, with an educational alex from [employer]. Thrive Questionnaire Date Thrive assessed: 05/28/23 I am a: Patient What is your living situation today?: I have a steady place to live Within the past 12 months, did the food you bought not last and you didn't have the money to get more?: Never true Within the past 12 months, did you worry whether your food would run out before you got money to buy more?: Never true Do you have trouble paying for medicines?: No Do you have trouble getting transportation to medical appointments?: No Do you have trouble paying your heating and electricity bill?: No Do you have trouble taking care of your child, family member or friend?: No Do you have trouble with day-to-day activities such as bathing, preparing meals, shopping, managing finances, etc.?: No Are you currently unemployed and looking for a job?: No Are you interested in more education?: No Please select the resources that you would like help with: None Currently or been in a relationship where the following occur: no concerns reported THRIVE Score: 0 AUDIT C Alcohol Use Questionnaire (AUDIT-C) 1. How often do you have a drink containing alcohol?: Monthly or less 2. How many drinks containing alcohol do you have on a typical day when you are drinking?: 1 or 2 3. How often do you have six or more drinks on one occasion?: Never Total Score: 1 Score Reviewed/Action Taken: Yes MELANIE-7 AMB Questionnaire MELANIE-7 Date MELANIE - 7 assessed: 05/28/23 Feeling nervous, anxious, or on edge: 0 = Not at all Not being able to stop or control worryin = Not at all Worrying too much about different things: 0 = Not at all Trouble relaxin = Not at all Being so restless that it is hard to sit still: 0 = Not at all Becoming easily annoyed or irritable: 0 = Not at all Feeling afraid as if something awful might happen: 0 = Not at all Total MELANIE-7 score (0-4 normal; 5-9 mild; 10-14 moderate; 15-21 severe): 0 Source: Developed by Drs. Lan Brar, Ava Grey, Brennen Marte and colleagues, with an educational alex from [employer]. Review of Systems Const Denies chills, Denies fever(s) and Denies headache(s) ENT Denies dysphagia, Denies dizziness, Denies otalgia, Denies headache(s), Denies neck pain, Denies odynophagia and Denies sore throat Card Denies chest pain, Denies palpitations and Denies dyspnea Resp Denies cough and Denies dyspnea GI Denies abdominal pain, Reports constipation (symptoms improving with Movantik), Denies dysphagia, Denies heartburn, Denies diarrhea, Denies nausea, Denies odynophagia and Denies vomiting Denies difficulty voiding, Denies nocturia, Denies dysuria and Denies urinary urgency Musc Reports back pain (chronic), Reports arthralgias (left ankle/foot - chronic; right shoulder, right hip), Denies joint swelling and Denies neck pain Skin/Breast Denies rash Neuro Denies dizziness and Denies headache(s) Endo Denies palpitations Physical exam (Primary Care) Vital Signs: Last Vital Signs Pulse 71 05/28/23 12:32 BP 124/80 05/28/23 12:32 Pulse Ox 99 05/28/23 12:32 Oxygen Delivery Method Room Air 05/28/23 12:32 BMI result Body Mass Index 28.9 Tobacco/Smoking Status: Tobacco use Status Tobacco use date assessed 05/28/23 05/28/23 12:41 Patient Tobacco Use Status Current everyday Tobacco 05/28/23 12:41 Tobacco use type Cigarette 05/28/23 12:41 e-Cigarette/Vaping Use Never Used 05/28/23 12:41 PHQ-9: PHQ-9 Score PHQ-9: Total score 0 05/28/23 13:28 Depression Screening Interpretation: Negative Thrive Assessment: Date of Thrive Assessment Date Thrive assessed 05/28/23 05/28/23 12:41 Currently or been in a relationship where the following occur: no concerns reported Const General: no acute distress and alert HENMT Ears: TM's normal bilaterally and EAC's normal Throat: Yes posterior oropharynx normal and Yes tonsils normal (no TP congestion noted) Neck Neck: Yes no lymphadenopathy and Yes supple Thyroid: Thyroid normal Resp Auscultation: clear to auscultation bilaterally, no rales and no wheezes Cardio Rate: regular rate Rhythm: regular rhythm Heart sounds: no murmurs GI Palpation (GI): Soft to palpation and nontender Auscultation: normal bowel sounds Back/Spine/Pelvis Thoracic/Lumbar Spine: lumbar spinal tenderness Skin Rashes: no rashes Extrem General: Yes no clubbing, cyanosis or edema Right upper extremity: shoulder/upper arm Details: tenderness Location: of the A-C joint Right lower extremity: hip/thigh Details: tenderness Location: of the hip Left lower extremity: ankle Assessment and Plan Assessment & Plan (1) Preoperative examination: Code(s): Z01.818 - Encounter for other preprocedural examination Plan: Patient presents with acceptable risks for planned low cardiac risk procedure She is advised to go and get her previously ordered labs done RUBÉN Will also send her for EKG for further evaluation (2) Callus between toes: Code(s): L84 - Corns and callosities Plan: She is scheduled for excision of an interdigital clavus between the right 4th and 5th toes under MAC on 06/27/2023 with podiatry at [facility] (3) Migraine: Code(s): G43.909 - Migraine, unspecified, not intractable, without status migrainosus Qualifiers: Migraine type: unspecified Status migrainosus presence: without status migrainosus Intractability: not intractable Qualified Code(s): G43.909 - Migraine, unspecified, not intractable, without status migrainosus Plan: Continue Nortriptyline 10 mg Q HS for headache prophylaxis Will consider referring her to neurology for further evaluation and management if her headaches persist or get worse even with preventive Rx (4) Pure hypercholesterolemia: Code(s): E78.00 - Pure hypercholesterolemia, unspecified Plan: Reinforced low cholesterol diet Patient was on Atorvastatin 40 mg QD before but stopped taking this on her own a while ago (5) Superficial gastritis without hemorrhage: Code(s): K29.30 - Chronic superficial gastritis without bleeding Qualifiers: Chronicity: unspecified Qualified Code(s): K29.30 - Chronic superficial gastritis without bleeding Plan: Dietary restrictions reinforced Continue Famotidine 40 mg BID, Sucralfate 1 gm QID and Omeprazole 40 mg BID S/P EGD and colonoscopy on 2021 - (+) retained suture was removed from the gastric pouch and the small anastomotic ulcer on the brittany limb was much improved from previous; colonoscopy was normal except for a small polyp that was removed (tubular adenoma) MRI of the abdomen done last year also came back normal Follow up with GI as scheduled (6) Thoracic radiculopathy: Code(s): M54.14 - Radiculopathy, thoracic region Plan: Continue Gabapentin 800 mg TID - Rx refilled Patient used to take opioids for pain but is now smoking marijuana since she was suspended from the opioid program indefinitely - states that marijuana is helping a lot and she smokes them only as needed (7) Neuropathy: Code(s): G62.9 - Polyneuropathy, unspecified Plan: States that her Gabapentin and marijuana are helping with her chronic pain (8) Derangement of ankle, left: Code(s): M24.9 - Joint derangement, unspecified Plan: S/P removal of hardware from the left ankle last year - is still experiencing recurrent pain in the ankle Continue Gabapentin 800 mg TID and Tramadol 50 mg BID PRN Patient is also smoking marijuana as needed currently to help with her chronic pain Follow up with orthopedics as scheduled (9) Constipation: Code(s): K59.00 - Constipation, unspecified Qualifiers: Constipation type: unspecified constipation type Qualified Code(s): K59.00 - Constipation, unspecified Plan: Encouraged increased oral fluids and dietary fiber Continue Linzess 145 mcg QD (10) Status post gastric bypass for obesity: Code(s): Z98.84 - Bariatric surgery status Plan: Continue Multivitamins, calcium and vitamin D supplements daily (11) Obesity (BMI 30-39.9): Comment: S/P gastric bypass in 2014 Code(s): E66.9 - Obesity, unspecified Plan: Reinforced diet/exercise as tolerated/lose weight - is unable to exercise much due to her back issues Plan Patient presents with acceptable risks for planned low cardiac risk procedure She is advised to go and get her labs and EKG done RUBÉN and final clearance will be provided once the results of these are available for review To return as scheduled in September 2023 for her AWV Orders: Orders ECG 12 lead EKG 05/28/23 Z01.818 - Encounter for other preprocedural examination, E78.00 - Pure hypercholesterolemia, unspecified, G62.9 - Polyneuropathy, unspecified Medications: Refilled gabapentin 800 mg PO TID 270 tabs 1RF M24.9 - Joint derangement, unspecified, G62.9 - Polyneuropathy, unspecified Coding Level of Care Code Est Pt Level 4 (95474) Diagnoses Preoperative examination Z01.818 Callus between toes L84 Migraine without status migrainosus, not intractable, unspecified migraine type G43.909 Migraine type: unspecified Status migrainosus presence: without status migrainosus Intractability: not intractable Pure hypercholesterolemia E78.00 Superficial gastritis without hemorrhage, unspecified chronicity K29.30 Chronicity: unspecified Thoracic radiculopathy M54.14 Neuropathy G62.9 Derangement of ankle, left M24.9 Constipation, unspecified constipation type K59.00 Constipation type: unspecified constipation type Status post gastric bypass for obesity Z98.84 Obesity (BMI 30-39.9) E66.9
== END 2023-05-28 13:07 | disposition home or self-care (01) ==
PROVIDERS: PCP Internal Medicine; Visit Provider Internal Medicine
DX: G43.909 Migraine, unspecified, not intractable, without status migrainosus (principal); Z01.818 Encounter for other preprocedural examination; E66.9 Obesity, unspecified; Z68.28 Body mass index [BMI] 28.0-28.9, adult; L84 Corns and callosities; E78.00 Pure hypercholesterolemia, unspecified; K29.30 Chronic superficial gastritis without bleeding; M54.14 Radiculopathy, thoracic region; G62.9 Polyneuropathy, unspecified; M24.9 Joint derangement, unspecified; K59.00 Constipation, unspecified; Z98.84 Bariatric surgery status
CPT/HCPCS: 99214

== ENCOUNTER 2023-05-28 13:13 | Outpatient (REF) | payer MEDICARE, MEDICAID, SELFPAY ==
--- NOTE | ~2023-05-28 | XR_ITS ---
EXAMINATION: XR HAND AND WRIST, BILATERAL XR SHOULDER, BILATERAL XR HIP, BILATERAL XR CERVICAL SPINE XR LUMBAR SPINE CLINICAL INFORMATION: Arthropathy unspecified. COMPARISON: None available. TECHNIQUE: AP and lateral views of each hip. 3 views of the lumbar spine. 4 views of each hand and wrist. 4 views of each shoulder. 4 views of the cervical spine. FINDINGS: Cervical Spine: Atherosclerotic calcifications in the aortic knob. Visualization of C7 is limited due to overlying soft tissues multilevel cervical spondylosis most notable at C6-C7 with loss of disc space height and hypertrophic change. Degenerative changes on very limited images of the upper thoracic spine. Left Shoulder: Mild degenerative changes in the acromioclavicular joint with joint space narrowing and hypertrophic change. Hypertrophic change along the superior lateral aspect of the acromion. Mild degenerative changes in the glenohumeral joint. Advanced degenerative changes on limited images of the upper thoracic spine. Right Shoulder: Moderate degenerative changes in the acromioclavicular joint with joint space narrowing and hypertrophic change. Moderate degenerative changes in the glenohumeral joint with hypertrophic change along the inferior aspect of the glenoid. Hypertrophic spurring along the lateral and superior aspects of the acromion. Lumbar Spine: Facet arthritis in the lower lumbar spine. Advanced multilevel lumbar spondylosis with multilevel hypertrophic change and loss of disc space height most notable at L5-S1. Degenerative changes in the imaged lower lumbar spine. Right Hip: Mild degenerative changes on limited views of the inferior aspect of the right sacroiliac joint. Mild degenerative changes with joint space narrowing and hypertrophic change in the right hip. Left Hip: Mild degenerative changes with joint space narrowing and hypertrophic change of the left hip. Soft tissue calcifications and hypertrophic change along the greater tuberosity. Right Hand and Wrist: Moderate degenerative changes in the first carpometacarpal joint with joint space narrowing and hypertrophic change. The bones are diffusely demineralized. Narrowing of the radiocarpal joint. Advanced degenerative changes in the IP joint of the thumb with abundant hypertrophic change. Mild osteoarthritic changes and scattered IP joints. Ulnar-minus variance. Left Hand and Wrist: Moderate degenerative changes in the first carpometacarpal joint with joint space narrowing and hypertrophic change. The bones are diffusely demineralized. Narrowing of the radiocarpal joint. Advanced degenerative changes in the IP joint of the thumb with abundant hypertrophic change. Mild osteoarthritic changes and scattered IP joints. Ulnar-minus variance. XR/XR shoulder LT min 2V IMPRESSION: 1. Multilevel cervical spondylosis most notable at C6-C7. 2. Moderate degenerative changes in the right shoulder. 3. Umij-au-aofetqyr degenerative changes in the left shoulder.. 4. Advanced multilevel lumbar spondylosis most notable at L5-S1. 5. Mild degenerative changes in the bilateral hips. 6. Moderate degenerative changes in the bilateral first carpometacarpal joints. 7. Advanced degenerative changes in the IP joints of the thumbs.
--- NOTE | 2023-05-28 13:18 | ECG_ITS ---
Test Reason : z01.818 Blood Pressure : / mmHG Vent. Rate : 064 BPM Atrial Rate : 064 BPM P-R Int : 156 ms QRS Dur : 084 ms QT Int : 408 ms P-R-T Axes : 066 019 063 degrees QTc Int : 420 ms Normal sinus rhythm Normal ECG When compared with ECG of 18-FEB-2019 11:34, No significant change was found Referred By: Ronni Kingsley Electronically Signed By:ELFEGO FRITZ MD
[2023-05-28 13:28] LABS: MANUAL DIFF FLAG NO
[2023-05-28 14:03] LABS: Basophils Absolute Auto 0.1 X10*3/uL (0.0-0.2); Basophils Percent Auto 0.7 % (0-2); Eosinophils Absolute Auto 0.1 X10*3/uL (0.0-0.4); Eosinophils Percent Auto 1.5 % (0-4); Hematocrit 40.9 % (37.0-47.0); Hemoglobin 13.6 g/dl (12.0-16.0); Imm Gran Abs Auto 0.02 X10*3/uL (0.00-0.03); Imm Gran Pct Auto 0.2 % (0.0-0.4); Lymphocytes Absolute Auto 2.3 X10*3/uL (1.2-4.9); Lymphocytes Percent Auto 27.9 % (20-40); Mean Corpuscular HGB Conc 33.3 g/dl (31.0-35.0); Mean Corpuscular Hemoglobin 30.6 pg (27.0-33.0); Mean Corpuscular Volume 92.1 fL (80.0-98.0); Mean Platelet Volume 11.3 fL (9.4-12.3); Monocytes Absolute Auto 0.7 X10*3/uL (0.1-1.2); Monocytes Percent Auto 8.3 % (2-11); Neutrophils Absolute Auto 5.1 x10*3/uL (2.0-8.3); Neutrophils Percent Auto 61.4 % (45-73); Platelet Count 240 X10*3/uL (160-400); Red Blood Count 4.44 X10*6/uL (4.20-5.50); Red Cell Distribution Width 14.1 % (11.0-16.0); White Blood Count 8.3 X10*3/uL (4.8-10.8)
[2023-05-28 14:30] LABS: Appearance Urine Clear; Color Urine Yellow; Glucose Urine UA Negative (Negative); Leukocyte Esterase Urine Negative (Negative); Nitrite Urine Negative (Negative); PH 5.5 (5.0-9.0); Specific Gravity - Urine <= 1.005 (1.005-1.025); Urine Blood Negative (Negative); Urine Ketones Negative (Negative); Urine Protein Negative (Neg-Trace)
[2023-05-28 14:38] LABS: Alanine Aminotransferase 9 U/L (0-31); Albumin Level 4.2 g/dL (3.5-5.0); Alkaline Phosphatase 68 U/L (39-117); Anion Gap 12 (12-20); Aspartate Amino Transferase 13 U/L (5-31); Bilirubin Total 0.3 mg/dL (0.0-1.0); Blood Urea Nitrogen 8 mg/dL (9-16); Calcium 9.4 mg/dL (8.4-10.2); Carbon Dioxide 28 mmol/L (22-29); Chloride 104 mmol/L (96-108); Cholesterol 247 mg/dL (<200); Estimated Glomerular Filt Rate > 60; Glucose Fasting 93 mg/dL (60-99); HDL Cholesterol 52 mg/dL (>40); LDL Cholesterol Calculated 160 mg/dL (<100); Potassium 4.1 mmol/L (3.3-5.1); Sodium 140 mmol/L (135-145); Total Protein 7.5 g/dL (6.5-8.0); Triglycerides 177 mg/dL (<150)
[2023-05-28 14:46] LABS: TSH reflex Free T4 1.03 uIU/mL (0.32-4.0); Vitamin D 25-OH Total 48.3 ng/mL (>30)
[2023-05-28 15:02] LABS: Folate 16.9 ng/mL (> or = 4.0); Vitamin B12 574 pg/mL (200-900)
== END 2023-05-28 13:14 | disposition home or self-care (01) ==
LOC: HO.XRAY 13:13
PROVIDERS: Absent Provider Nurse Practitioner Family; PCP Internal Medicine; Visit Provider Internal Medicine
DX: Z00.00 Encounter for general adult medical examination without abnormal findings (principal); M12.9 Arthropathy, unspecified; M25.50 Pain in unspecified joint; G43.909 Migraine, unspecified, not intractable, without status migrainosus; E78.00 Pure hypercholesterolemia, unspecified; E55.9 Vitamin D deficiency, unspecified; G62.9 Polyneuropathy, unspecified; E53.8 Deficiency of other specified B group vitamins; R30.0 Dysuria; I10 Essential (primary) hypertension
CPT/HCPCS: 36415; 72040; 72100; 73030; 73110; 73130; 73502; 80053; 80061; 81003; 82306; 82607; 82746; 84443; 85025; 93005

== ENCOUNTER → 2023-05-28 13:18 | Outpatient (BNV) | payer MEDICARE, MEDICAID, SELFPAY | PROVIDERS: Absent Provider Nurse Practitioner Family; PCP Internal Medicine; Visit Provider Internal Medicine Cardiovascular Disease | DX: M24.9 Joint derangement, unspecified (principal); G62.9 Polyneuropathy, unspecified; Z01.818 Encounter for other preprocedural examination | CPT/HCPCS: 93010 ==

== ENCOUNTER 2023-07-29 10:02 | Outpatient (AMB) | payer MEDICARE, MEDICAID, SELFPAY ==
[2023-07-29 10:07] VITALS: BP 135/73; PULSE 71; BMI 30.1
--- NOTE | 2023-07-29 10:07 | MHC.OFFVIS ---
Vital Signs 07/29/23 10:07 Height 5 ft 9 in Weight 203 lb 9.423 oz BMI 30.1 BP 135/73 Blood Pressure Location Lt brachial Position Sitting Pulse 71 Intake Visit Reasons: r/s from 07/05/23 Intake Note: Macey presents in the office as a follow up. 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: No Allergies adhesive tape [TAPE,ADHESIVE] Allergy (Severe, Verified 07/29/23 10:09) ANAPHYLAXIS diphenhydramine [From BENADRYL] Allergy (Severe, Verified 07/29/23 10:09) ANAPHYLAXIS erythromycin base [ERYTHROMYCIN BASE] Allergy (Severe, Verified 07/29/23 10:09) ANAPHYLAXIS latex [LATEX] Allergy (Severe, Verified 07/29/23 10:09) ANAPHYLAXIS levofloxacin [From LEVAQUIN] Allergy (Severe, Verified 07/29/23 10:09) ANAPHYLAXIS meperidine [From DEMEROL] Allergy (Severe, Verified 07/29/23 10:09) ANAPHYLAXIS morphine [MORPHINE] Allergy (Unknown, Verified 07/29/23 10:09) UNKNOWN RED DYE IN TYLOX Allergy (Unknown, Uncoded 07/29/23 10:09) Unknown pollen Allergy (Uncoded 07/29/23 10:09) Sneezing HPI HPI r/s from 07/05/23: Details: 63 yr old f here for f/u RECAP Her main complaint was constant pain, dysphagia, nausea/vomiting she feels things started after her gastric bypass surgery 2013 pain is in epigastrium, pain is 10/10, there every day and worsened by food she awakens at night due to the pain severity the pain is sharp and burning, feels like a contraction feels like being stabbed by a sword she was told she had ulcers , EGD on file 2017 with anastomotic ulcers, she did have another egd 2018 no report but she said still showed ulcers she has tried pantoprazole, and carafate she has normal bowel habits, no diarrhea or constipation, although if eats certain fodo she can get diarrhea she is also on gabapentin 600 mg OD for years for foot pain and neuropathy, also on suboxone for pain she recall that before RYGB she felt normal and had no complaints brother has breast ca aged 38--no gene testing doen at time (22 yrs ago). TESTS: h pylori neg celiac neg fecal elastase low fecal fat pos fecal regi 311 Upper GI series- patent GJ, no stricture or intussception EGD: 03/31/2019--severe marginal ulceration--rept 3-6 months colonoscopy- 03/2019--adenoma removed, not recovered--rept 5 yrs MRI 04/2019-- mild enteritis, atrophic pancreas no focal lesion At f/u 09/2019--- she feels pain is getting worse again, variabel severity of pain, not as bad today as before appetite is poor, not ate for 3 d she is having nausea and vomiting taking yoghurts she has been avoiding hospital due to covid she was constipated she has been on oxycodone 10 mg, stopped suboxone now taking carafate avoiding lactulose and nsaid EGD was arranged---11/2019--large matthew grade III ulcer 15-20 mm at anastomosis advised on smoking cessation, PPI, carafte and PPi regimens with pepcid at night, bx neg of for h pylori or neoplasia she was on movantik as well At f/u 06/2020: she feels better overall, but some days can have intense pain, she rocks, and crosses legs and attacks can last for 2 days son makes her eat, and she manages toast and eggs she avoids meats as it feels like getting stuck bentyl which helps her pain a lot, takes TID some times can have nausea and vomiting she still smokes, variable amounts, smokes more if in pain still takes famotidine at night and carafate on pain patch still taking movantik she has constipation and drinks coca cola which helps her a lot I did repeat EGD 10/2020 due to ongoing pain, plus she was still smoking This revealed a large matthew grade III ulcer on jejunal side Other data: MRI 03/2021---normal pancreas I did a repeat EGD and colonoscopy 12/2021 Endoscopy Findings: retained suture-removed anastomotic ulcer Colonoscopy Findings: polyp internal hemorrhoids path: tubular adenoma INTERIM: She has been using omeprazole --opening capsule she feels better with treatment for her marginal ulcer weight has been better appetite is good, weight stable no nausea, very occ vomiting still smoking, had foot surgery for removal of callous/bunion taking MV she stopped linaclotide, no longer has constipation EXAM: GENERAL: The patient is well developed and nontoxic. VITAL SIGNS:see workflow HEENT: Nonicteric sclerae, PERRLA, EOMI. Oropharynx clear. Moist mucous membranes. Conjunctivae appear well perfused. No thyroid mass. CHEST: Chest wall is nontender. HEART: Regular rate and rhythm without murmurs. LUNGS: Clear to auscultation bilaterally. ABDOMEN: Soft, positive bowel sounds, nontender, no organomegaly.no flank tenderness SKIN: No rash, no excessive bruising, petechiae, or purpura. NEUROLOGIC: Cranial nerves II-XII intact without motor/sensory deficit. Psych: nml Assessment & Plan 1/ hx of stomach ulcer, smoking hx, taking PPI 2/ constipation, no longer on opioids, and not an issue 3/ tubular adenoma PLAN: 1/ cont with PPI, open capsule and can mix with yoghurt 2/ discussed high fiber diet for hemorrhoids--taking more veg in diet 3/ repeat colonoscopy in 3-4 yrs due to polyp 4/ encouraged on smoking cessation again PFSH Medical History Pain in joint, multiple sites Arthritis, multiple joint involvement Migraine Epidermal cyst Obesity (BMI 30-39.9) Derangement of ankle, left Neuropathy Thoracic radiculopathy Superficial gastritis without hemorrhage Pure hypercholesterolemia Surgical History Hx of toe surgery Hx of colonoscopy History of esophagogastroduodenoscopy (EGD) History of surgery History of oral surgery History of eye surgery H/O gastric bypass History of foot surgery History of elbow surgery History of cholecystectomy History of tonsillectomy Family History Mother Diabetes mellitus Arthritis Father Cardiovascular disease Brother Asbestosis Mesothelioma Arthritis Sister Mental health problem Arthritis Other Substance abuse Social History Household Members: Family and Children Housing: House Are you a primary child care center administrator to a significant other at home: No Do you presently have visiting nurse or other home services: No Alcohol intake: current Alcohol intake frequency: holidays/special occasions only Alcohol type: wine Patient Tobacco Use Status: Current everyday Tobacco user Tobacco use type: Cigarette Cigarettes Per Day: 5 Years Smoked: 54 e-Cigarette/Vaping Use: Never Used Second Hand Smoke Exposure: Yes Substance Use Type: Marijuana service: No Current occupational status: disabled Cognitive needs: Yes (cane) Hearing needs: No Vision needs: Yes Physical Exam Vital Signs: Last Vital Signs Pulse 71 07/29/23 10:07 BP 135/73 07/29/23 10:07 BMI result Body Mass Index 30.1 Assessment & Plan Assessment & Plan (1) Stomach ulcer: Code(s): K25.9 - Gastric ulcer, unspecified as acute or chronic, without hemorrhage or perforation Category: Medical Plan: see above Plan see above
== END 2023-07-29 10:34 | disposition home or self-care (01) ==
LOC: HO.HGI 10:02
PROVIDERS: PCP Internal Medicine; Visit Provider Internal Medicine Gastroenterology
DX: K25.9 Gastric ulcer, unspecified as acute or chronic, without hemorrhage or perforation (principal)
CPT/HCPCS: 99213

== ENCOUNTER → 2023-07-29 10:02 | Outpatient (BNVA) | payer MEDICARE, MEDICAID, SELFPAY | PROVIDERS: PCP Internal Medicine; Visit Provider Internal Medicine Gastroenterology | DX: K25.9 Gastric ulcer, unspecified as acute or chronic, without hemorrhage or perforation (principal) | CPT/HCPCS: 99212 ==

== ENCOUNTER 2023-09-19 11:22 | Outpatient (AMB) | payer MEDICARE, MEDICAID, SELFPAY ==
[2023-09-19 11:33] VITALS: BP 138/68; PULSE 68; O2SAT 97
--- NOTE | 2023-09-19 11:33 | AM.OFFVISMDC ---
Intake Vital Signs 09/19/23 11:33 Height 5 ft 9 in Weight 203 lb 0.8 oz BMI 30.0 BP 138/68 Blood Pressure Location Lt brachial Position Sitting Pulse 68 Pulse Source Pulse Oximeter Pulse Oximetry (%) 97 Oxygen Delivery Method Room Air Intake Visit Reasons: AWV Sock Mender Required: No Allergies adhesive tape [TAPE,ADHESIVE] Allergy (Severe, Verified 09/25/23 12:51) ANAPHYLAXIS diphenhydramine [From BENADRYL] Allergy (Severe, Verified 09/25/23 12:51) ANAPHYLAXIS erythromycin base [ERYTHROMYCIN BASE] Allergy (Severe, Verified 09/25/23 12:51) ANAPHYLAXIS latex [LATEX] Allergy (Severe, Verified 09/25/23 12:51) ANAPHYLAXIS levofloxacin [From LEVAQUIN] Allergy (Severe, Verified 09/25/23 12:51) ANAPHYLAXIS meperidine [From DEMEROL] Allergy (Severe, Verified 09/25/23 12:51) ANAPHYLAXIS morphine [MORPHINE] Allergy (Unknown, Verified 09/25/23 12:51) UNKNOWN RED DYE IN TYLOX Allergy (Unknown, Uncoded 09/25/23 12:51) Unknown pollen Allergy (Uncoded 09/25/23 12:51) Sneezing Medication List - Last Reconciled 09/19/23 by Ronni Kingsley MD albuterol sulfate 90 mcg/actuation (Ventolin HFA) 2 puffs inhalation Q6H PRN calcium carbonate-vitamin D3 600 mg-10 mcg (400 unit) (Calcium 600 + D(3)) 1 tab PO QID 30 days diclofenac sodium 1% 2 - 3 grams topical TID dicyclomine 20 mg (2 x 10 mg) PO BID famotidine 40 mg PO BEDTIME PRN 90 days gabapentin 800 mg PO TID cikpkbcl-ioz-infx-FA-vit K-lut 8 mg iron-400 mcg-50 mcg (Centrum Silver Women) 1 tab PO DAILY nortriptyline 10 mg PO BEDTIME 30 days omeprazole 40 mg PO BID ondansetron 4 mg PO Q8H PRN sucralfate 1 g PO QID HPI AWV HPI Details Patient comes in today for her Medicare Annual Wellness Exam AND follow up visit States that she continues to experience diffuse myalgia and multiple joint pains She is now seeing [facility]umatology and has been advised that she may have psoriatic arthritis and is currently being worked up for this - has a follow up appointment with rheumatology next week to discuss further recommendations She denies any headaches or dizziness Denies any chest pains, no SOB No nausea/vomiting and has not had any significant abdominal pain or issues lately She continues to take Omeprazole 40 mg BID and Sucralfate for a grade 3 ulcer seen on the jejunal side of her Keysha-en-Y anastomosis on EGD back in 2020 that was still present on repeat EGD in 2021 No change in bowel habits noted Needs a couple of her Rx refilled She most recently had colonoscopy done in 12/[address] Scott - was advised to get a repeat colonoscopy in 3 to 4 yrs due to the presence of some polyps seen on her recent procedure IPPE/AWV: c/o of Annual Wellness Visit, initial visit. Medical / Social History Reviewed Past Medical History Yes . [place] of Care / Care Team list updated Yes . Surgical/Hospitalization History Yes . Current Medications (including OTC and supplements) Yes . Family History Yes . Tobacco Control form Yes . AUDIT-C (Alcohol use) form Yes . Illicit drug use in Social History Yes . Current diagnosis of depression? No Appropriate PHQ2/PHQ9 completed Yes . Data entered by Hand Compositor and reviewed by provider Home Safety Throw rugs? No Grab bars? No Raised toilet seats? No Working smoke detectors? Yes Working carbon monoxide detectors? Yes Data entered by Hand Compositor and reviewed by provider Activities of Daily Living (ADLs) Difficulty bathing or showering? No Difficulty dressing? No Difficulty using the toilet? No Difficulty getting in and out of bed? No Difficulty walking? No Receives help from another person with any of the above tasks? No Instrumental Activities of Daily Living (IADLs) Uses the telephone without help Gets to places out of walking distance without help Goes shopping for groceries without help Prepares own meals without help Does own minor home maintenance without help Does own laundry without help Does own housework without help Manages own money without help Currently takes medications? Yes Takes medication without help End-of-Life Planning Discussed advance directive Yes Advance directive on file Discussed wishes expressed in advance directive agreed to following patient's wishes Fall Risk: Fall History Have you had any falls with injury in the past year? No . Have you had two or more falls in the past year? No . Fall Risk Assessment: No falls in the past year . HRA filled out by the patient, reviewed by Provider and scanned. [facility] Medical History (Updated 12/09/23 @ 17:22 by Ronni Kingsley MD) Smoker Osteoarthritis of carpometacarpal joint of left thumb Inflammatory arthropathy Screening examination for infectious disease Pain in joint, multiple sites Arthritis, multiple joint involvement Migraine Epidermal cyst Obesity (BMI 30-39.9) Derangement of ankle, left Neuropathy Thoracic radiculopathy Superficial gastritis without hemorrhage Pure hypercholesterolemia Surgical History Hx of toe surgery Hx of colonoscopy History of esophagogastroduodenoscopy (EGD) History of surgery History of oral surgery History of eye surgery H/O gastric bypass History of foot surgery History of elbow surgery History of cholecystectomy History of tonsillectomy Family History Mother Diabetes mellitus Arthritis Father Cardiovascular disease Brother Asbestosis Mesothelioma Arthritis Sister Mental health problem Arthritis Other Substance abuse Social History Household Members: Family and Children Housing: House Are you a primary care program resident to a significant other at home: No Do you presently have visiting nurse or other home services: No Alcohol intake: current Alcohol intake frequency: holidays/special occasions only Alcohol type: wine Patient Tobacco Use Status: Current everyday Tobacco user Tobacco use type: Cigarette Cigarettes Per Day: 5 Years Smoked: 54 e-Cigarette/Vaping Use: Never Used Second Hand Smoke Exposure: Yes Substance Use Type: Marijuana service: No Current occupational status: disabled Cognitive needs: Yes (cane) Hearing needs: No Vision needs: Yes Questionnaire Medicare Wellness Checkup What [age] 65-69 What gender do you identify with?: female During the past 4 weeks, how much have you been bothered by emotional problems such as feeling anxious, depressed, irritable, sad or downhearted, and blue?: extremely During the past 4 weeks, has your physical & emotional health limited your social activities with family, friends, neighbors, or groups?: extremely During the past 4 weeks, how much bodily pain have you generally had?: severe pain During the past 4 weeks, was someone available to help you if you needed & wanted help?: yes, as much as I wanted Can you get to places out of walking distance without help? (For eg., can you travel alone on buses, taxis or drive your car?): No Can you go shopping for groceries or clothes without someone's help?: No Can you prepare your own meals?: No Can you do your housework without help?: No Because of any health problems, do you need the help of another person with your personal care needs such as eating, bathing, dressing or getting around the house?: Yes Can you handle your own money without help?: No During the past 4 weeks, how would you rate your health in general?: poor During the past 4 weeks how have things been going for you?: very bad; could hardly be worse Are you having difficulties driving your car?: not applicable, I don't use a car Do you always fasten your seat belt when you are in a car?: yes, usually Have you fallen 2 or more times in the past year?: Yes Are you afraid of falling?: Yes Are you a smoker?: yes, and I might quit During the past 4 weeks, how many drinks of wine, beer, or other alcoholic beverages did you have?: no alcohol at all Do you exercise for about 20 minutes 3 or more times a week?: no, I usually do not exercise this much Have you been given information to help with the following?: yes: Hazards in your house that might hurt you? and yes: Keeping track of your medications? How often do you have trouble taking medicines the way you have been told to take them?: I always take medicine as prescribed What is your race?: White Mini Mental State Exam (MMSE) Orientation What is the (year) (season) (date) (day) (month)?: year, season, date, day and month Where are we (state) (county) (town or city) (hospital) (floor)?: state, county, town or city, hospital/clinic and floor Score Score: 10 Activity of Daily Living Bathing - sponge bath, tub bath or shower: receives help in bathing more than one body part (or not bathed) Dressing - getting clothes from closets & drawers, including inner/outer garments & fasteners.: gets clothes & gets dressed without help, except for help tying shoes Toileting - going to the 'toilet room' for urine/bowel elimination & cleaning self/arranging clothes: goes to toilet room, cleans self, arranges clothes without help Transfer: moves in & out of bed and chair without help (may use support object) Continence: has occasional 'accidents' Feeding: feeds self without help Total Score: 1 Information obtained from: patient Using telephone: independent Traveling: needs assistance Shopping: dependent Preparing meals: needs assistance Housework: dependent Taking medicine: needs assistance Managing money: independent PHQ-9 Over the last 2 weeks, how often have you been bothered by any of the following problems? 1. Little interest or pleasure in doing things: nearly every day 2. Feeling down, depressed, or hopeless: nearly every day 3. Trouble falling or staying asleep, or sleeping too much: nearly every day 4. Feeling tired or having little energy: nearly every day 5. Poor appetite or overeating: nearly every day 6. Feeling bad about yourself - or that you are a failure or have let yourself or your family down: not at all 7. Trouble concentrating on things, such as reading the newspaper or watching television: nearly every day 8. Moving or speaking so slowly that other people could have noticed. Or the opposite - being so fidgety or restless that you have been moving around a lot more than usual: not at all 9. Thoughts that you would be better off or of hurting yourself in some way: not at all Total score: 18 Depression Screening Interpretation: Positive Depression Screening Follow-up: Existing condition and In treatment Depression Screening Done: Yes 65128 - PHQ-9 Billing: Yes Source: Developed by Drs. Lan Brar, Ava Grey, Brennen Marte and colleagues, with an educational alex from [employer]. Review of Systems Const Denies chills, Reports fatigue, Denies fever(s) and Denies headache(s) ENT Denies dysphagia, Denies dizziness, Denies otalgia, Denies headache(s), Denies neck pain, Denies odynophagia and Denies sore throat Card Denies chest pain, Denies palpitations and Denies dyspnea Resp Denies cough and Denies dyspnea GI Denies abdominal pain, Reports constipation (symptoms improved with Movantik), Denies dysphagia, Denies heartburn, Denies diarrhea, Denies nausea, Denies odynophagia and Denies vomiting Denies difficulty voiding, Denies nocturia, Denies dysuria and Denies urinary urgency Musc Reports back pain (chronic), Reports arthralgias (left ankle/foot - chronic; right shoulder, right hip), Denies joint swelling and Denies neck pain Skin/Breast Denies rash Neuro Denies dizziness and Denies headache(s) Endo Reports fatigue and Denies palpitations Physical Exam Vital Signs: Last Vital Signs Pulse 68 09/19/23 11:33 BP 138/68 09/19/23 11:33 Pulse Ox 97 09/19/23 11:33 Oxygen Delivery Method Room Air 09/19/23 11:33 BMI result Body Mass Index 30.0 IPPE/AWV: Balance Romberg Yes . Tandem walk No. Walk and Turn No . Rise from sit to stand Yes . Vision Corrective lens No Vision screen pass Hearing Whisper test pass . Urinary incont. no. EKG Not clinically necessary. Const General: no acute distress and alert Orientation/consciousness: patient oriented x3 HEENT Ears: TM's normal bilaterally and EAC's normal Throat: Yes posterior oropharynx normal and Yes tonsils normal (no TP congestion noted) Neck Neck: Yes no lymphadenopathy and Yes tender (over the cervical spine and paraspinal areas bilaterally) Thyroid: Thyroid normal Resp Auscultation: clear to auscultation bilaterally, no rales and no wheezes Cardio Rate: regular rate Rhythm: regular rhythm Heart sounds: no murmurs GI Palpation (GI): Soft to palpation and nontender Auscultation: normal bowel sounds General: Yes no CVA tenderness Back/Spine/Pelvis Back: no CVA tenderness Thoracic/Lumbar Spine: paraspinal muscle tenderness bilaterally (over the cervical and thoracolumbar spine (diffuse)) and lumbar spinal tenderness Skin Rashes: no rashes Neuro General: patient oriented x3 Extrem General: Yes no clubbing, cyanosis or edema Right upper extremity: shoulder/upper arm Details: tenderness (diffusely over the scapular area) Left upper extremity: shoulder/upper arm Details: tenderness (diffusely over the scapular areas) Right lower extremity: hip/thigh Details: tenderness Location: of the hip; no swelling Left lower extremity: knee Details: tenderness; no swelling and ankle Details: tenderness (chronic); no swelling Assessment & Plan Assessment & Plan (1) Medicare annual wellness visit, initial: Code(s): Z00.00 - Encounter for general adult medical examination without abnormal findings Plan: HRA forms discussed and completed with patient - forms will be scanned into patient's chart C of C and med list updated She is up-to-date with her screening colonoscopy She has not had annual mammography done since her last one in 2018 and does not wish to have one ordered at this time She also has not had gynecology and annual pap smear done for years now and does not wish to get these done at present (2) Pure hypercholesterolemia: Code(s): E78.00 - Pure hypercholesterolemia, unspecified Plan: Reinforced low cholesterol diet Continue Atorvastatin 40 mg QD Will recheck her labs and fasting lipids in 3 months for follow up (3) Superficial gastritis without hemorrhage: Code(s): K29.30 - Chronic superficial gastritis without bleeding Qualifiers: Chronicity: unspecified Qualified Code(s): K29.30 - Chronic superficial gastritis without bleeding Plan: EGD with biopsies done in March 2019 showed (+) acute ulcers at the small bowel anastomotic site ; gastric mucosa showed (+) erythema but biopsy was negative; was also negative for H pylori Repeat EGD done in November 2019 shows mild gastric erythema and a grade 3 ulcer on the Keysha limb of the jejunum about 15 to 20 mm in diameter; biopsies were taken from these 2 sites and they came back negative for dysplasia or malignancy Follow up EGD in 2020 revealed similar findings Continue Omeprazole 40 mg BID and Sucralfate 1 gm 4 times a day Follow-up with GI as scheduled (4) Thoracic radiculopathy: Code(s): M54.14 - Radiculopathy, thoracic region Plan: Follow up with pain management as scheduled (5) Arthritis, multiple joint involvement: Code(s): M12.9 - Arthropathy, unspecified Plan: Follow up with rheumatology as scheduled - she is now seeing [facility]ology instead of [facility] [place] States that rheumatology is currently working her up for possible psoriatic arthritis (6) Derangement of ankle, left: Code(s): M24.9 - Joint derangement, unspecified Plan: (+) Hx of fracture of the left ankle, S/P surgical repair, with consequent chronic arthropathy of the ankle Continue Gabapentin 800 mg TID (7) Smoker: Code(s): F17.200 - Nicotine dependence, unspecified, uncomplicated Plan: Patient is counseled again to continue working on complete smoking cessation (8) Obesity (BMI 30-39.9): Comment: S/P gastric bypass in 2014 Code(s): E66.9 - Obesity, unspecified Plan: Reinforced diet; exercise and weight loss are unrealistic currently given patient's multiple physical issues Plan Follow up in 3 months Orders: Orders Comprehensive [place]. Panel Fast 3 Months E78.00 - Pure hypercholesterolemia, unspecified Lipid Panel 3 Months E78.00 - Pure hypercholesterolemia, unspecified Complete Blood Count Auto Diff 3 Months D64.9 - Anemia, unspecified TSH reflex Free T4 3 Months E78.00 - Pure hypercholesterolemia, unspecified UA CC w/rflx Micro + Cult 3 Months R30.0 - Dysuria Vitamin D 25-OH Total 3 Months E55.9 - Vitamin D deficiency, unspecified Medications: Changed From calcium carbonate-vitamin D3 600 mg-10 mcg (400 unit) 1 tab PO QID 30 days 120 tabs 5RF To calcium carbonate-vitamin D3 600 mg-10 mcg (400 unit) (Calcium 600 + D(3)) 1 tab PO BID 60 tabs 5RF 30 days Refilled atorvastatin 40 mg PO DAILY 90 tabs 1RF 90 days Discontinued nortriptyline Discontinued Reason: Patient no longer taking 10 mg PO BEDTIME 30 days 30 caps 1RF Quality Reporting (2019) Depression/Bipolar (159/160/161/177) PHQ-9: Total score: 18 Coding Level of Care Code Medicare Subsequent (G0439) Est Pt Level 4 (05925) Diagnoses Medicare annual wellness visit, initial Z00.00 Pure hypercholesterolemia E78.00 Superficial gastritis without hemorrhage, unspecified chronicity K29.30 Chronicity: unspecified Thoracic radiculopathy M54.14 Arthritis, multiple joint involvement M12.9 Derangement of ankle, left M24.9 Smoker F17.200 Obesity (BMI 30-39.9) E66.9
== END 2023-09-19 12:29 | disposition home or self-care (01) ==
PROVIDERS: PCP Internal Medicine; Visit Provider Internal Medicine
DX: Z00.00 Encounter for general adult medical examination without abnormal findings (principal); E78.00 Pure hypercholesterolemia, unspecified; K29.30 Chronic superficial gastritis without bleeding; M54.14 Radiculopathy, thoracic region; M12.9 Arthropathy, unspecified; M24.9 Joint derangement, unspecified; F17.200 Nicotine dependence, unspecified, uncomplicated; E66.9 Obesity, unspecified
CPT/HCPCS: 99214; G0439

== ENCOUNTER 2023-09-25 12:48 | Outpatient (AMB) | payer MEDICARE, MEDICAID, SELFPAY ==
--- NOTE | 2023-09-25 12:49 | A.OFFVIS_ITS ---
Vital Signs 09/25/23 12:50 Height 5 ft 9 in Weight 207 lb 10.807 oz BMI 30.7 BP 116/62 Blood Pressure Location Lt brachial Position Sitting Pulse 82 Pulse Source Pulse Oximeter Intake Visit Reasons: Arthritis/CM Intake Note: Patient presents today for Arthritis follow up. Development Technical Lead Required: No Accompanied by: Self / Same As Patient Allergies adhesive tape [TAPE,ADHESIVE] Allergy (Severe, Verified 09/25/23 12:51) ANAPHYLAXIS diphenhydramine [From BENADRYL] Allergy (Severe, Verified 09/25/23 12:51) ANAPHYLAXIS erythromycin base [ERYTHROMYCIN BASE] Allergy (Severe, Verified 09/25/23 12:51) ANAPHYLAXIS latex [LATEX] Allergy (Severe, Verified 09/25/23 12:51) ANAPHYLAXIS levofloxacin [From LEVAQUIN] Allergy (Severe, Verified 09/25/23 12:51) ANAPHYLAXIS meperidine [From DEMEROL] Allergy (Severe, Verified 09/25/23 12:51) ANAPHYLAXIS morphine [MORPHINE] Allergy (Unknown, Verified 09/25/23 12:51) UNKNOWN RED DYE IN TYLOX Allergy (Unknown, Uncoded 09/25/23 12:51) Unknown pollen Allergy (Uncoded 09/25/23 12:51) Sneezing HPI Comments Details: Ms. Choudhury is 62 year-old female with known history of OA and joint pain is here today for left thumb injection. Initial visit 02/2023 Nga: Ms. Choudhury is 62 year-old female with medical history significant for neuro ra, thoracic radiculopathy, contstipation and hypercholestermia. She is a patient of Dr. Kingsley, wishing to transfer care from the arthritis treatment center in [place] because she has difficulty getting an appointment there. She presents today for evaluation of arthritis pain in hands, hip, lower back and legs. Patient requesting referral for cortisone injections. Patient states previously follow by pain management but she was off by one pill and got kicked out . Patient currently using diclofenac cream for the pain and heating pad. Per patient she has been treated for osteoarthritis since 1985 when she 1st started getting injections in her shoulders for pain. She gets chronic injections to right shoulder and left hip and thumbs. Her thumb joints get swollen the most in her hands. 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 The injection does provide relief for the better part of 3 weeks to a month. Patient also had a severe fall in the past and has had 7-12 surgeries to reconstruct her left ankle. She currently takes gabapentin 800 mg 3 times a day for her pain and uses diclofenac topical cream. Her family history is significant for psoriasis her sister who has active PsO. She also had psoriasis when she was 16 years old it has not returned since she was given topical cream. Per psoriasis she had PsO on her scalp, elbows and knees. The patient reports she has had to have esophagus stretched 2 times as a part of the EGD examinations because sometimes food gets stuck or it is difficult to swallow. She has not had the happen recently. She takes omeprazole and famotidine for stomach ulcers. She had cervical cancer at age of 16 and had a hysterectomy. Her son was born as a test tube baby [facility] where she worked for 32 years. 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 Patient emphatically states that due to the condition of her lower back her doctors told her never to do physical therapy. When she is at home she barely walks around because of the pain. She mainly stays in bed. Her son takes her out for a walk once a week. She mainly uses a wheelchair for mobility and uses the cane to balance when walking, due to her left ankle. She does knitting to keep her hands from getting stiff. Patient denies Raynaud's phenomenon, butterfly rash on face or other rashes; denies photosensitivity - getting sick or developing a rash from being out in the sun; denies blood or froth in urine; patient denies hx of SOB, chest pain. Patient denies hx of Carditis or Pleuritis. Patient denies any history of DVT/PE. Denies unknown fevers, excessive fatigue, unexplained weight-loss or weight-gain Denies: thinning hair or hair loss, hx of rashes Denies: dry, itchy eyes, red burning eyes needing steroids to treat; dry mouth, mouth sores or ulcers; nose bleed; ringing in the ear, Denies blood or mucous in stool; nausea, chronic vomiting and diarrhea Malignancy screening: Colonoscopy : Y Mammogram Y [facility] Medical History (Updated 09/26/23 @ 19:29 by RODY Miller) Osteoarthritis of carpometacarpal joint of left thumb Inflammatory arthropathy Screening examination for infectious disease Pain in joint, multiple sites Arthritis, multiple joint involvement Migraine Epidermal cyst Obesity (BMI 30-39.9) Derangement of ankle, left Neuropathy Thoracic radiculopathy Superficial gastritis without hemorrhage Pure hypercholesterolemia Surgical History Hx of toe surgery Hx of colonoscopy History of esophagogastroduodenoscopy (EGD) History of surgery History of oral surgery History of eye surgery H/O gastric bypass History of foot surgery History of elbow surgery History of cholecystectomy History of tonsillectomy Family History Mother Diabetes mellitus Arthritis Father Cardiovascular disease Brother Asbestosis Mesothelioma Arthritis Sister Mental health problem Arthritis Other Substance abuse Social History Household Members: Family and Children Housing: House Are you a primary health care / medical job titles to a significant other at home: No Do you presently have visiting nurse or other home services: No Alcohol intake: current Alcohol intake frequency: holidays/special occasions only Alcohol type: wine Patient Tobacco Use Status: Current everyday Tobacco user Tobacco use type: Cigarette Cigarettes Per Day: 5 Years Smoked: 54 e-Cigarette/Vaping Use: Never Used Second Hand Smoke Exposure: Yes Substance Use Type: Marijuana service: No Current occupational status: disabled Cognitive needs: Yes (cane) Hearing needs: No Vision needs: Yes Review of Systems Const All systems reviewed & are unremarkable except as noted in HPI and below Physical Exam Vital Signs: Last Vital Signs Pulse 82 09/25/23 12:50 BP 116/62 09/25/23 12:50 BMI result Body Mass Index 30.7 APPEARANCE: Patient in no acute distress. States in a lot of pain EYES no redness, pupils equal and reactive to light, eyelids normal EARS:? External ear normal, canal clear and tympanic membrane normal. NOSE/SINUS:? Airflow through both nares, no nasal discharge, no bleeding THROAT:? Oral mucosa moist, no ulcerations NECK:? No thyromegaly or masses, no adenopathy, trachea midline. HEART:? Regulrar rhythm, S1-S2 heard, no murmurs, rubs or gallops. LUNG:? Clear to percussion and auscultation ABD:? Normal bowel sounds, no organomegaly, masses or tenderness. EXTREMITIES:? No edema, no calf tenderness, normal peripheral pulses. NEURO:? Oriented and alert x3.? No focal weakness.? Reflexes symmetric.? Gait normal. SKIN:? There are no skin lesions evident. No objective signs of Raynaud's phenomenon. JOINT EXAM: ?Cervical Spine:.? Full range of motion without pain; Some tenderness. Thoracic Spine:.? No scoliosis.?Some tenderness on palpation. Lumbar Spine:.? Alignment normal.? Some tenderness on palpation. Chest Wall:.? No tenderness, swelling, increased warmth or erythema. Hands:.? Normal pain-free range of motion without tenderness, swelling, increased warmth or erythema. Able to make a full fist but has a weakened industrial technologist strength 3/5. Right MCP tenderness; mild osteophytes to DIPs. Tenderness at CMC joints and with ROM. Wrists:.? Normal pain-free range of motion without swelling, increased warmth or erythema. Left wrist tenderness with palpation Elbows:. Normal pain-free range of motion without tenderness, swelling, increased warmth or erythema. Shoulders:.?? Right: Limited range of motion most 95 degrees. Weakness throughout a 5. Left: Full range of motion without pain. No tenderness, weakness, swelling, increased warmth or erythema. Hips:.? Full range of motion without pain. Hip bursa:.? No tenderness. Knees:.?? Normal pain-free range of motion without tenderness, swelling, increased warmth or erythema.? There is no effusion or crepitation Ankles:.? Normal pain-free range of motion without tenderness, swelling, increased warmth or erythema. Feet:.? Normal pain-free range of motion without tenderness, swelling, increased warmth or erythema. Tender points:? No tenderness to digital palpation at the occiput, trapezius, second rib, lateral epicondyle, knees, greater trochanter and gluteal area bilaterally. ? Office Procedures Joint Injection/Drain Joint Injection/Drain Primary Site: left thumb Prep: site was prepped using aseptic technique Injected: 40 mg of and Kenalog Procedure: The patient tolerated the procedure well and but had some pain with the injection Coding 53756 - Small Joint Procedure code (CPT) selection complete Results Reviewed Results Reviewed: Laboratory Tests 10/15/22 02/26/23 05/28/23 08:01 11:30 13:27 WBC 8.3 RBC 4.44 ESR 25 H C-Reactive Protein 0.95 H Rheumatoid Factor < 13.0 Cycl Citrul Peptide IgG <16 SHAMA Screen NEGATIVE HLA-B27 Negative Patient: Macey Goldstein MR#: [id number] : 1960 Acct:[id number] Age/Sex: 63 / F ADM Date: 05/28/23 Loc: [facility] Attending Dr: Ronni Kingsley MD Ordering Physician: Nga Miller Date of Service: 05/28/23 Procedure(s): XR shoulder RT min 2V Accession Number(s): [id number] cc: Ronni Kingsley MD; Nga Miller~ EXAMINATION: XR HAND AND WRIST, BILATERAL XR SHOULDER, BILATERAL XR HIP, BILATERAL XR CERVICAL SPINE XR LUMBAR SPINE CLINICAL INFORMATION: Arthropathy unspecified. COMPARISON: None available. TECHNIQUE: AP and lateral views of each hip. 3 views of the lumbar spine. 4 views of each hand and wrist. 4 views of each shoulder. 4 views of the cervical spine. FINDINGS: Cervical Spine: Atherosclerotic calcifications in the aortic knob. Visualization of C7 is limited due to overlying soft tissues multilevel cervical spondylosis most notable at C6-C7 with loss of disc space height and hypertrophic change. Degenerative changes on very limited images of the upper thoracic spine. Left Shoulder: Mild degenerative changes in the acromioclavicular joint with joint space narrowing and hypertrophic change. Hypertrophic change along the superior lateral aspect of the acromion. Mild degenerative changes in the glenohumeral joint. Advanced degenerative changes on limited images of the upper thoracic spine. Right Shoulder: Moderate degenerative changes in the acromioclavicular joint with joint space narrowing and hypertrophic change. Moderate degenerative changes in the glenohumeral joint with hypertrophic change along the inferior aspect of the glenoid. Hypertrophic spurring along the lateral and superior aspects of the acromion. Lumbar Spine: Facet arthritis in the lower lumbar spine. Advanced multilevel lumbar spondylosis with multilevel hypertrophic change and loss of disc space height most notable at L5-S1. Degenerative changes in the imaged lower lumbar spine. Right Hip: Mild degenerative changes on limited views of the inferior aspect of the right sacroiliac joint. Mild degenerative changes with joint space narrowing and hypertrophic change in the right hip. Left Hip: Mild degenerative changes with joint space narrowing and hypertrophic change of the left hip. Soft tissue calcifications and hypertrophic change along the greater tuberosity. Right Hand and Wrist: Moderate degenerative changes in the first carpometacarpal joint with joint space narrowing and hypertrophic change. The bones are diffusely demineralized. Narrowing of the radiocarpal joint. Advanced degenerative changes in the IP joint of the thumb with abundant hypertrophic change. Mild osteoarthritic changes and scattered IP joints. Ulnar-minus variance. Left Hand and Wrist: Moderate degenerative changes in the first carpometacarpal joint with joint space narrowing and hypertrophic change. The bones are diffusely demineralized. Narrowing of the radiocarpal joint. Advanced degenerative changes in the IP joint of the thumb with abundant hypertrophic change. Mild osteoarthritic changes and scattered IP joints. Ulnar-minus variance. XR/XR shoulder RT min 2V IMPRESSION: 1. Multilevel cervical spondylosis most notable at C6-C7. 2. Moderate degenerative changes in the right shoulder. 3. [id number] degenerative changes in the left shoulder.. 4. Advanced multilevel lumbar spondylosis most notable at L5-S1. 5. Mild degenerative changes in the bilateral hips. 6. Moderate degenerative changes in the bilateral first carpometacarpal joints. 7. Advanced degenerative changes in the IP joints of the thumbs. 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: Code(s): G58.8 - Other specified mononeuropathies; G89.29 - Other chronic pain; T14.8XXS - Other injury of unspecified body region, sequela (4) Inflammatory arthropathy: Code(s): M19.90 - Unspecified osteoarthritis, unspecified site Category: Medical (5) Osteoarthritis of carpometacarpal joint of left thumb: Code(s): M18.12 - Unilateral primary osteoarthritis of first carpometacarpal joint, left hand Category: Medical Qualifiers: Osteoarthritis type: primary Qualified Code(s): M18.12 - Unilateral primary osteoarthritis of first carpometacarpal joint, left hand Plan #Left CMC OA: Injected Kenalog 40mg today. #PsA: I discussed with patient that she may have PsA and may benefit from a one month trial of the medication to see if joint pain improves generally. She will think about it. I did order the TB and Help panel in case she decides to do that. f/u 3 months Initial Assessment 02/2023 #PsA: Ms. Choudhury,63 yoF is here for evaluation of her joint pain and transfer of care from the [facility] in [place]. Ms. Choudhury walks with a cane for stability given the reconstruction of her left ankle. Upon initial r eview of her medical records physical exam and oral history I suspect this patient may have psoriatic arthritis. Considering her clinical presentation which includes incidences of elevated CRP and ESR(recent 10/15/22 CRP 1.94), multiple joint injections especially to her shoulders, hips and thumbs, lower back pain, personal history of psoriasis and sister with active psoriasis, I think this is a reasonable assumption. Her pain is improved on Naprosyn but she does not take it daily for fear of GI concerns. I will discuss further and pursue PsA treatment with patient at next visit. Will also request records from the arthritis treatment center. #OA of multiple sites: There is no doubt patient has accompanying OA which she states she was told at age of [age] in her shoulders when she first started receiving injections. 05/2022 left Knee Xray also suggests Mild OA. Additionally mild DIP osteophytes observed on PE and weakened industrial technologist strength. She gets occasional swelling to bilateral thumbs. She can continue to Naprosyn as prescribed. She also uses Dicloflenac cream to lower back and alternates heat and cold compresses to joints. #Neuropathy: Patient has reduced sensation to touch in left foot. She also states numbness due to nerve damage secondary to over 10 surgeries to reconstruct her ankle. She takes gabapentin for neuropathy. Orders: Orders Comprehensive Met. Panel 09/25/23 M19.90 - Unspecified osteoarthritis, unspecified site C Reactive Protein 09/25/23 M19. - Unspecified osteoarthritis, unspecified site Immunoglobulins,IgG IgA IgM 09/25/23 - Unspecified osteoarthritis, unspecified site Immunofixation Pnl, Serum 09/25/23 M1 - Unspecified osteoarthritis, unspecified site Hepatitis A,B,C Profile 09/25/23 - Unspecified osteoarthritis, unspecified site, Z11.9 - Encounter for screening for infectious and parasitic diseases, unspecified AMB Joint Injection/Aspiration 09/25/23 M18.12 - Unilateral primary osteoarthritis of first carpometacarpal joint, left hand Erythrocyte Sedimentation Rate 09/25/23 - Unspecified osteoarthritis, unspecified site Complete Blood Count Auto Diff 09/25/23 - Unspecified osteoarthritis, unspecified site Protein Electrophoresis, Serum 09/25/23 - Unspecified osteoarthritis, unspecified site T Spot TB 09/25/23 - Unspecified osteoarthritis, unspecified site, Z11.9 - Encounter for screening for infectious and parasitic diseases, unspecified Coding Level of Care Code Est Pt Level 3 (94150) Complex EM visit Add On G2211 Diagnoses Osteoarthritis involving multiple joints on both sides of body M15.9 Pain in joint, multiple sites M25.50 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
[2023-09-25 12:50] VITALS: BP 116/62; PULSE 82; BMI 30.7
== END 2023-09-25 13:53 | disposition home or self-care (01) ==
PROVIDERS: PCP Internal Medicine; Visit Provider Nurse Practitioner Family
DX: M15.9 Polyosteoarthritis, unspecified (principal); M25.50 Pain in unspecified joint; G58.8 Other specified mononeuropathies; G89.29 Other chronic pain; T14.8XXS Other injury of unspecified body region, sequela; M19.90 Unspecified osteoarthritis, unspecified site; M18.12 Unilateral primary osteoarthritis of first carpometacarpal joint, left hand
CPT/HCPCS: 20600; 99214

== ENCOUNTER → 2023-09-25 12:48 | Outpatient (BNVA) | payer MEDICARE, MEDICAID, SELFPAY | PROVIDERS: PCP Internal Medicine; Visit Provider Nurse Practitioner Family | DX: M18.12 Unilateral primary osteoarthritis of first carpometacarpal joint, left hand (principal); M15.9 Polyosteoarthritis, unspecified; M25.50 Pain in unspecified joint; M19.90 Unspecified osteoarthritis, unspecified site; G58.8 Other specified mononeuropathies; G89.29 Other chronic pain; T14.8XXS Other injury of unspecified body region, sequela | CPT/HCPCS: 20600; 99212 ==

== ENCOUNTER 2023-12-26 12:06 | Outpatient (REF) | payer MEDICARE, MEDICAID, SELFPAY ==
[2023-12-26 12:28] LABS: MANUAL DIFF FLAG NO
[2023-12-26 13:00] LABS: Basophils Absolute Auto 0.1 X10*3/uL (0.0-0.2); Basophils Percent Auto 1.1 % (0-2); Eosinophils Absolute Auto 0.2 X10*3/uL (0.0-0.4); Eosinophils Percent Auto 1.8 % (0-4); Hematocrit 38.3 % (37.0-47.0); Hemoglobin 12.8 g/dl (12.0-16.0); Imm Gran Abs Auto 0.04 X10*3/uL (0.00-0.03); Imm Gran Pct Auto 0.4 % (0.0-0.4); Lymphocytes Absolute Auto 2.2 X10*3/uL (1.2-4.9); Mean Corpuscular HGB Conc 33.4 g/dl (31.0-35.0); Mean Corpuscular Hemoglobin 30.5 pg (27.0-33.0); Mean Corpuscular Volume 91.2 fL (80.0-98.0); Mean Platelet Volume 11.1 fL (9.4-12.3); Monocytes Absolute Auto 0.7 X10*3/uL (0.1-1.2); Monocytes Percent Auto 8.2 % (2-11); Neutrophils Absolute Auto 5.7 x10*3/uL (2.0-8.3); Neutrophils Percent Auto 63.5 % (45-73); Platelet Count 278 X10*3/uL (160-400); Red Cell Distribution Width 13.8 % (11.0-16.0)
[2023-12-26 13:32] LABS: Appearance Urine Clear; Color Urine Yellow; Glucose Urine UA Negative (Negative); Leukocyte Esterase Urine Trace (Negative); Nitrite Urine Negative (Negative); PH 5.5 (5.0-9.0); UMIC TRIGGER UACC YES; Urine Blood Negative (Negative); Urine Ketones Negative (Negative); Urine Protein Negative (Neg-Trace)
[2023-12-26 13:36] LABS: Bacteria Urine None Seen (None Seen); Hyaline Casts Urine 0-2 /LPF (0-2); RBC Urine 0-2 /HPF (0-2); WBC Urine 0-5 /HPF (0-5)
[2023-12-26 13:47] LABS: Erythrocyte Sedimentation Rate 19 MM/HR (0-20)
[2023-12-26 14:02] LABS: Alanine Aminotransferase 24 U/L (0-31); Alkaline Phosphatase 122 U/L (39-117); Anion Gap 10 (12-20); Aspartate Amino Transferase 12 U/L (5-31); Bilirubin Total 0.3 mg/dL (0.0-1.0); Blood Urea Nitrogen 7 mg/dL (9-16); C Reactive Protein 0.48 mg/dL (< or = 0.50); Calcium 8.8 mg/dL (8.4-10.2); Carbon Dioxide 28 mmol/L (22-29); Chloride 109 mmol/L (96-108); Cholesterol 146 mg/dL (<200); Estimated Glomerular Filt Rate > 60; Glucose Random 81 mg/dL (60-115); HDL Cholesterol 45 mg/dL (>40); LDL Cholesterol Calculated 73 mg/dL (<100); Potassium 3.7 mmol/L (3.3-5.1); Sodium 143 mmol/L (135-145); Total Protein 7.2 g/dL (6.5-8.0); Triglycerides 140 mg/dL (<150)
[2023-12-26 14:18] LABS: TSH reflex Free T4 1.16 uIU/mL (0.32-4.0); Vitamin D 25-OH Total 44.2 ng/mL (>30)
[2023-12-27 08:49] LABS: HBS Num1 1.29 mIU/mL (0-7.99); HBsAGNum1 0.25 S/CO (0.00-0.99); Hepatitis A Antibody IgM 0.11 Index (0-0.79); Hepatitis B Core Antibody Nonreactive (Nonreactive); Hepatitis B Surface Antigen Negative (Negative); ~HepC Num1 0.09 S/CO (0.00-0.79); ~Hepatitis A Antibody IgM Nonreactive (Nonreactive); ~Hepatitis B Surface Antibody NONREACTIVE (Nonreactive); ~Hepatitis C Antibody Nonreactive (Nonreactive)
[2023-12-29 23:23] LABS: TS Negative Control Passed; TS Panel A 0; TS Panel B 0; TS Positive Control Passed; TSpotTB Negative (Negative)
[2023-12-30 22:59] LABS: Prot Elec - Albumin 3.8 g/dL (3.8-4.8); Prot Elec - Alpha1 0.3 g/dL (0.2-0.3); Prot Elec - Alpha2 0.8 g/dL (0.5-0.9); Prot Elec - Beta 1 0.4 g/dL (0.4-0.6); Prot Elec - Beta 2 0.4 g/dL (0.2-0.5); Prot Elec - Gamma 0.9 g/dL (0.8-1.7); Prot Elec - Total Protein 6.6 g/dL (6.1-8.1)
[2023-12-31 18:22] LABS: IgA 184 mg/dL (70-320); IgG 861 mg/dL (600-1540); IgM 80 mg/dL (50-300)
== END 2023-12-26 12:07 | disposition home or self-care (01) ==
LOC: HO.LAB 12:06
PROVIDERS: Absent Provider Nurse Practitioner Family; PCP Internal Medicine; Visit Provider Internal Medicine
DX: Z11.9 Encounter for screening for infectious and parasitic diseases, unspecified (principal); E55.9 Vitamin D deficiency, unspecified; D64.9 Anemia, unspecified; E78.00 Pure hypercholesterolemia, unspecified; M18.11 Unilateral primary osteoarthritis of first carpometacarpal joint, right hand
CPT/HCPCS: 20600; 36415; 80053; 80061; 81001; 82306; 82784; 84165; 84443; 85025; 85652; 86140; 86334; 86481; 86704; 86706; 86709; 86803; 87340; 99212

== ENCOUNTER 2023-12-26 12:43 | Outpatient (AMB) | payer MEDICARE, MEDICAID, SELFPAY ==
--- NOTE | 2023-12-26 12:58 | MHC.OFFVIS ---
Vital Signs 12/26/23 13:01 Height 5 ft 9 in Weight 207 lb BMI 30.6 BP 118/78 Blood Pressure Location Lt brachial Position Sitting Pulse 78 Pulse Source Pulse Oximeter Pulse Oximetry (%) 98 Oxygen Delivery Method Room Air Intake Visit Reasons: Arthritis/CM Intake Note: Patient last seen by Nga Miller on 09/25/23. Presents today for Arthritis follow up and test results. Allergies adhesive tape [TAPE,ADHESIVE] Allergy (Severe, Verified 12/26/23 13:02) ANAPHYLAXIS diphenhydramine [From BENADRYL] Allergy (Severe, Verified 12/26/23 13:02) ANAPHYLAXIS erythromycin base [ERYTHROMYCIN BASE] Allergy (Severe, Verified 12/26/23 13:02) ANAPHYLAXIS latex [LATEX] Allergy (Severe, Verified 12/26/23 13:02) ANAPHYLAXIS levofloxacin [From LEVAQUIN] Allergy (Severe, Verified 12/26/23 13:02) ANAPHYLAXIS meperidine [From DEMEROL] Allergy (Severe, Verified 12/26/23 13:02) ANAPHYLAXIS morphine [MORPHINE] Allergy (Unknown, Verified 12/26/23 13:02) UNKNOWN RED DYE IN TYLOX Allergy (Unknown, Uncoded 12/26/23 13:02) Unknown pollen Allergy (Uncoded 12/26/23 13:02) Sneezing Medication List - Last Reconciled 12/26/23 by Marcel Uriarte MD albuterol sulfate 90 mcg/actuation (Ventolin HFA) 2 puffs inhalation Q6H PRN atorvastatin 40 mg PO DAILY 90 days calcium carbonate-vitamin D3 600 mg-10 mcg (400 unit) (Calcium 600 + D(3)) 1 tab PO BID 30 days diclofenac sodium 1% 2 - 3 grams topical TID dicyclomine 20 mg (2 x 10 mg) PO BID famotidine 40 mg PO BEDTIME PRN 90 days gabapentin 800 mg PO TID [id number]-FA-vit K-lut 8 mg iron-400 mcg-50 mcg (Centrum Silver Women) 1 tab PO DAILY omeprazole 40 mg PO BID ondansetron 4 mg PO Q8H PRN sucralfate 1 g PO QID HPI Comments Details: This is a 63-year-old female with generalized osteoarthritis who presents for follow-up. Patient states that she has had osteoarthritis for many years. Since her 20s. She used to follow-up regularly with her fisher eel spear Dr. Lan Arguello for many years. She has had trouble intra-articular injections. Patient has had psoriasis for over 40 years. She states that her psoriasis now is very minimal. Last visit Nga Miller suspected psoriatic arthritis but no DMARD was started. Patient's main complaint today is her right thumb pain. She has pain at the base of her thumb. She states that she has days when she has significant pain and swelling in the area. Last visit left 1st CMC joint was injected by Nga Miller with significant improvement. Today she is requesting injection on the right side [facility] Medical History Smoker Osteoarthritis of carpometacarpal joint of left thumb Inflammatory arthropathy Screening examination for infectious disease Pain in joint, multiple sites Arthritis, multiple joint involvement Migraine Epidermal cyst Obesity (BMI 30-39.9) Derangement of ankle, left Neuropathy Thoracic radiculopathy Superficial gastritis without hemorrhage Pure hypercholesterolemia Surgical History Hx of toe surgery Hx of colonoscopy History of esophagogastroduodenoscopy (EGD) History of surgery History of oral surgery History of eye surgery H/O gastric bypass History of foot surgery History of elbow surgery History of cholecystectomy History of tonsillectomy Family History Mother Diabetes mellitus Arthritis Father Cardiovascular disease Brother Asbestosis Mesothelioma Arthritis Sister Mental health problem Arthritis Other Substance abuse Social History Household Members: Family and Children Housing: House Are you a primary tree care foreman to a significant other at home: No Do you presently have visiting nurse or other home services: No Alcohol intake: current Alcohol intake frequency: holidays/special occasions only Alcohol type: wine Patient Tobacco Use Status: Current everyday Tobacco user Tobacco use type: Cigarette Cigarettes Per Day: 5 Years Smoked: 54 e-Cigarette/Vaping Use: Never Used Second Hand Smoke Exposure: Yes Substance Use Type: Marijuana service: No Current occupational status: disabled Cognitive needs: Yes (cane) Hearing needs: No Vision needs: Yes Female Reproductive History Menstrual Total pregnancies: 11 Ab spontaneous: 10 Review of Systems Musc Reports arthralgias, Reports joint swelling and Reports stiffness Physical Exam Vital Signs: Last Vital Signs Pulse 78 12/26/23 13:01 BP 118/78 12/26/23 13:01 Pulse Ox 98 12/26/23 13:01 Oxygen Delivery Method Room Air 12/26/23 13:01 BMI result Body Mass Index 30.6 Const General: cooperative, healthy appearing and comfortable Nutritional Appearance: overweight Orientation/consciousness: patient oriented x3 Limitations: no limitations HEENT Head: Yes normocephalic and Yes atraumatic Mouth: moist mucous membranes Resp Effort & Inspection: normal respiratory effort and able to speak in complete sentences Cardio Rate: regular rate Neuro General: patient oriented x3 Extrem Other: Mild osteoarthritic changes of both hands Tenderness at the base of the right thumb Significantly limited range of motion of right shoulder Office Procedures Joint Injection/Aspiration Joint Injection/Aspiration Primary Site: right thumb Prep: site was prepped using sterile technique and ethochloride spray was applied Injected: 20 mg of, Kenalog, with 0.25 mL of, 1% plain lidocaine and in the joint Procedure: The patient tolerated the procedure well Coding Details: With patient's consent. After prepping the right 1st CMC joint area with ChloraPrep, ethyl chloride spray was used then using a 27 gauge needle 10 mg of Kenalog mixed with 0.1 cc of 1% lidocaine was injected into the joint space. The patient tolerated the procedure well with no apparent acute adverse events Small Joint Procedure code (CPT) selection complete Results Reviewed Results Reviewed: Laboratory Tests 10/15/22 02/26/23 05/28/23 08:01 11:30 13:27 WBC 8.3 RBC 4.44 ESR 25 H C-Reactive Protein 0.95 H Rheumatoid Factor < 13.0 Cycl Citrul Peptide IgG <16 SHAMA Screen NEGATIVE HLA-B27 Negative Patient: Macey Goldstein MR#: [id number] : 1960 Acct:[id number] Age/Sex: 63 / F ADM Date: 05/28/23 Loc: [facility] Attending Dr: Ronni Kingsley MD Ordering Physician: Nga Miller [facility] Date of Service: 05/28/23 Procedure(s): XR shoulder RT min 2V Accession Number(s): [id number] cc: Ronni Kingsley MD; Nga Miller [employer]~ EXAMINATION: XR HAND AND WRIST, BILATERAL XR SHOULDER, BILATERAL XR HIP, BILATERAL XR CERVICAL SPINE XR LUMBAR SPINE CLINICAL INFORMATION: Arthropathy unspecified. COMPARISON: None available. TECHNIQUE: AP and lateral views of each hip. 3 views of the lumbar spine. 4 views of each hand and wrist. 4 views of each shoulder. 4 views of the cervical spine. FINDINGS: Cervical Spine: Atherosclerotic calcifications in the aortic knob. Visualization of C7 is limited due to overlying soft tissues multilevel cervical spondylosis most notable at C6-C7 with loss of disc space height and hypertrophic change. Degenerative changes on very limited images of the upper thoracic spine. Left Shoulder: Mild degenerative changes in the acromioclavicular joint with joint space narrowing and hypertrophic change. Hypertrophic change along the superior lateral aspect of the acromion. Mild degenerative changes in the glenohumeral joint. Advanced degenerative changes on limited images of the upper thoracic spine. Right Shoulder: Moderate degenerative changes in the acromioclavicular joint with joint space narrowing and hypertrophic change. Moderate degenerative changes in the glenohumeral joint with hypertrophic change along the inferior aspect of the glenoid. Hypertrophic spurring along the lateral and superior aspects of the acromion. Lumbar Spine: Facet arthritis in the lower lumbar spine. Advanced multilevel lumbar spondylosis with multilevel hypertrophic change and loss of disc space height most notable at L5-S1. Degenerative changes in the imaged lower lumbar spine. Right Hip: Mild degenerative changes on limited views of the inferior aspect of the right sacroiliac joint. Mild degenerative changes with joint space narrowing and hypertrophic change in the right hip. Left Hip: Mild degenerative changes with joint space narrowing and hypertrophic change of the left hip. Soft tissue calcifications and hypertrophic change along the greater tuberosity. Right Hand and Wrist: Moderate degenerative changes in the first carpometacarpal joint with joint space narrowing and hypertrophic change. The bones are diffusely demineralized. Narrowing of the radiocarpal joint. Advanced degenerative changes in the IP joint of the thumb with abundant hypertrophic change. Mild osteoarthritic changes and scattered IP joints. Ulnar-minus variance. Left Hand and Wrist: Moderate degenerative changes in the first carpometacarpal joint with joint space narrowing and hypertrophic change. The bones are diffusely demineralized. Narrowing of the radiocarpal joint. Advanced degenerative changes in the IP joint of the thumb with abundant hypertrophic change. Mild osteoarthritic changes and scattered IP joints. Ulnar-minus variance. XR/XR shoulder RT min 2V IMPRESSION: 1. Multilevel cervical spondylosis most notable at C6-C7. 2. Moderate degenerative changes in the right shoulder. 3. Lggz-mx-nqumsxie degenerative changes in the left shoulder.. 4. Advanced multilevel lumbar spondylosis most notable at L5-S1. 5. Mild degenerative changes in the bilateral hips. 6. Moderate degenerative changes in the bilateral first carpometacarpal joints. 7. Advanced degenerative changes in the IP joints of the thumbs. Assessment & Plan Assessment & Plan (1) Generalized osteoarthritis: Code(s): M15.9 - Polyosteoarthritis, unspecified Category: Medical Plan: This is a 63-year-old female with generalized osteoarthritis who presents for follow-up. She also has history of psoriasis. Last visit Nga Miller suspected psoriatic arthritis. Upon evaluation today her clinical picture is more consistent with generalized osteoarthritis. Patient does not mention intermittent flare-ups of joint pains and stiffness. Advised patient to take pictures of any involved joints. She states that she will take pictures and may present to clinic to show me. Follow-up in 2-3 months (2) Osteoarthritis of right thumb: Code(s): M18.11 - Unilateral primary osteoarthritis of first carpometacarpal joint, right hand Category: Medical Plan: With patient's consent, right 1st CMC joint was injected with Kenalog today Plan I spent 25 minutes reviewing patient's chart, evaluating patient, , counseling patient and documenting in the chart Orders: Orders AMB Joint Injection/Aspiration Today M18.11 - Unilateral primary osteoarthritis of first carpometacarpal joint, right hand Coding Level of Care Code Est Pt Level 4 (97837) Diagnoses Generalized osteoarthritis M15.9 Osteoarthritis of right thumb M18.11 CPT Codes Coding - - Small joint: - Small Joint ([id number])
[2023-12-26 13:01] VITALS: BP 118/78; PULSE 78; O2SAT 98; BMI 30.6
== END 2023-12-26 13:50 | disposition home or self-care (01) ==
LOC: HO.RHE 12:43
PROVIDERS: PCP Internal Medicine; Visit Provider Student in an Organized Health Care Education/Training Program
DX: M18.11 Unilateral primary osteoarthritis of first carpometacarpal joint, right hand (principal)
CPT/HCPCS: 20600; 99213

== ENCOUNTER 2024-01-13 12:25 | Outpatient (AMB) | payer MEDICARE, MEDICAID, SELFPAY ==
--- NOTE | 2024-01-13 12:37 | MHC.PC.OV ---
Vital Signs 01/13/24 12:38 Height 5 ft 9 in Weight 204 lb 2 oz BMI 30.1 BP 128/82 Blood Pressure Location Lt brachial Position Sitting Pulse 72 Pulse Source Pulse Oximeter Pulse Oximetry (%) 96 Oxygen Delivery Method Room Air Intake Visit Reasons: hyperlipidemia, cervical spondylosis, lumbspondyl Buffing Machine Tender Required: No Accompanied by: Self / Same As Patient Allergies adhesive tape [TAPE,ADHESIVE] Allergy (Severe, Verified 01/13/24 13:05) ANAPHYLAXIS diphenhydramine [From BENADRYL] Allergy (Severe, Verified 01/13/24 13:05) ANAPHYLAXIS erythromycin base [ERYTHROMYCIN BASE] Allergy (Severe, Verified 01/13/24 13:05) ANAPHYLAXIS latex [LATEX] Allergy (Severe, Verified 01/13/24 13:05) ANAPHYLAXIS levofloxacin [From LEVAQUIN] Allergy (Severe, Verified 01/13/24 13:05) ANAPHYLAXIS meperidine [From DEMEROL] Allergy (Severe, Verified 01/13/24 13:05) ANAPHYLAXIS morphine [MORPHINE] Allergy (Unknown, Verified 01/13/24 13:05) UNKNOWN RED DYE IN TYLOX Allergy (Unknown, Uncoded 01/13/24 13:05) Unknown pollen Allergy (Uncoded 01/13/24 13:05) Sneezing Medication List - Last Reconciled 01/13/24 by Ronni Kingsley MD albuterol sulfate 90 mcg/actuation (Ventolin HFA) 2 puffs inhalation Q6H PRN atorvastatin 40 mg PO DAILY 90 days calcium carbonate-vitamin D3 600 mg-10 mcg (400 unit) (Calcium 600 + D(3)) 1 tab PO BID 30 days diclofenac sodium 1% 2 - 3 grams topical TID dicyclomine 20 mg (2 x 10 mg) PO BID famotidine 40 mg PO BEDTIME PRN gabapentin 800 mg PO TID txavjzfo-brk-vdvc-FA-vit K-lut 8 mg iron-400 mcg-50 mcg (Centrum Silver Women) 1 tab PO DAILY omeprazole 40 mg PO BID ondansetron 4 mg PO Q8H PRN sucralfate 1 g PO QID Tobacco use date assessed: 01/13/24 Dental Screening Dental Screen Date: 01/13/24 Did you have a dental visit in the last 12 months?: Yes Did you have a dental problem in the last 6 months where you did not have access to dental care?: No Was dental information given to patient?: Patient has dentist HPI hyperlipidemia, cervical spondylosis, lumbspondyl HPI Details Patient comes in today for her follow up visit States that she continues to experience diffuse myalgia and multiple joint pains and she is now [place] [facility] [place] for these States that she received a cortisone injection from Dr. Uriarte into her right thumb joint a couple of weeks ago and feels that the injection helped somewhat She denies any headaches or dizziness Denies any chest pains, no SOB No nausea/vomiting, no abdominal pain No change in bowel habits noted She had her follow up labs done a couple of weeks ago - to discuss her results [facility] Medical History Smoker Osteoarthritis of carpometacarpal joint of left thumb Inflammatory arthropathy Screening examination for infectious disease Pain in joint, multiple sites Arthritis, multiple joint involvement Migraine Epidermal cyst Obesity (BMI 30-39.9) Derangement of ankle, left Neuropathy Thoracic radiculopathy Superficial gastritis without hemorrhage Pure hypercholesterolemia Surgical History Hx of toe surgery Hx of colonoscopy History of esophagogastroduodenoscopy (EGD) History of surgery History of oral surgery History of eye surgery H/O gastric bypass History of foot surgery History of elbow surgery History of cholecystectomy History of tonsillectomy Family History Mother Diabetes mellitus Arthritis Father Cardiovascular disease Brother Asbestosis Mesothelioma Arthritis Sister Mental health problem Arthritis Other Substance abuse Social History Household Members: Family and Children Housing: House Are you a primary wild animal caretaker to a significant other at home: No Do you presently have visiting nurse or other home services: No Alcohol intake: current Alcohol intake frequency: holidays/special occasions only Alcohol type: wine Patient Tobacco Use Status: Current everyday Tobacco user Tobacco use type: Cigarette Cigarettes Per Day: 5 Years Smoked: 54 e-Cigarette/Vaping Use: Never Used Second Hand Smoke Exposure: Yes Substance Use Type: Marijuana service: No Current occupational status: disabled Cognitive needs: Yes (cane) Hearing needs: No Vision needs: Yes Questionnaire PHQ-9 Over the last 2 weeks, how often have you been bothered by any of the following problems? 1. Little interest or pleasure in doing things: nearly every day 2. Feeling down, depressed, or hopeless: nearly every day 3. Trouble falling or staying asleep, or sleeping too much: nearly every day 4. Feeling tired or having little energy: nearly every day 5. Poor appetite or overeating: nearly every day 6. Feeling bad about yourself - or that you are a failure or have let yourself or your family down: not at all 7. Trouble concentrating on things, such as reading the newspaper or watching television: nearly every day 8. Moving or speaking so slowly that other people could have noticed. Or the opposite - being so fidgety or restless that you have been moving around a lot more than usual: not at all 9. Thoughts that you would be better off or of hurting yourself in some way: not at all Total score: 18 Depression Screening Interpretation: Positive Depression Screening Follow-up: Existing condition and In treatment Depression Screening Done: Yes 94915 - PHQ-9 Billing: Yes Source: Developed by Drs. Lan Brar, Ava Grey, Brennen Marte and colleagues, with an educational alex from [employer]. Thrive Questionnaire Date Thrive assessed: 01/13/24 I am a: Patient What is your living situation today?: I have a steady place to live Within the past 12 months, did the food you bought not last and you didn't have the money to get more?: Never true Within the past 12 months, did you worry whether your food would run out before you got money to buy more?: Never true Do you have trouble paying for medicines?: No Do you have trouble getting transportation to medical appointments?: No Do you have trouble paying your heating and electricity bill?: No Do you have trouble taking care of your child, family member or friend?: No Do you have trouble with day-to-day activities such as bathing, preparing meals, shopping, managing finances, etc.?: No Are you currently unemployed and looking for a job?: No Are you interested in more education?: No Please select the resources that you would like help with: None Currently or been in a relationship where the following occur: No concerns reported THRIVE Score: 0 AUDIT C Alcohol Use Questionnaire (AUDIT-C) 1. How often do you have a drink containing alcohol?: Monthly or less 2. How many drinks containing alcohol do you have on a typical day when you are drinking?: 1 or 2 3. How often do you have six or more drinks on one occasion?: Never Total Score: 1 Score Reviewed/Action Taken: Yes MELANIE-7 AMB Questionnaire MELANIE-7 Date MELANIE - 7 assessed: 01/13/24 Feeling nervous, anxious, or on edge: 0 = Not at all Not being able to stop or control worryin = Not at all Worrying too much about different things: 0 = Not at all Trouble relaxin = Not at all Being so restless that it is hard to sit still: 0 = Not at all Becoming easily annoyed or irritable: 0 = Not at all Feeling afraid as if something awful might happen: 0 = Not at all Total MELANIE-7 score (0-4 normal; 5-9 mild; 10-14 moderate; 15-21 severe): 0 Source: Developed by Drs. Lan Brar, Ava Grey, Brennen Marte and colleagues, with an educational alex from [employer]. Review of Systems Const Denies chills, Reports fatigue, Denies fever(s) and Denies headache(s) ENT Denies dysphagia, Denies dizziness, Denies otalgia, Denies headache(s), Denies neck pain, Denies odynophagia and Denies sore throat Card Denies chest pain, Denies palpitations and Denies dyspnea Resp Denies chest congestion, Denies cough and Denies dyspnea GI Denies abdominal pain, Reports constipation (symptoms improved with Movantik), Denies dysphagia, Denies heartburn, Denies diarrhea, Denies nausea, Denies odynophagia and Denies vomiting Denies difficulty voiding, Denies nocturia, Denies dysuria and Denies urinary urgency Musc Reports back pain (chronic), Reports arthralgias (left ankle/foot - chronic; right shoulder, right hip), Denies joint swelling and Denies neck pain Skin/Breast Denies rash Neuro Denies dizziness and Denies headache(s) Endo Reports fatigue and Denies palpitations Physical exam (Primary Care) Vital Signs: Last Vital Signs Pulse 72 01/13/24 12:38 BP 128/82 01/13/24 12:38 Pulse Ox 96 01/13/24 12:38 Oxygen Delivery Method Room Air 01/13/24 12:38 BMI result Body Mass Index 30.1 Tobacco/Smoking Status: Tobacco use Status Tobacco use date assessed 01/13/24 01/13/24 12:47 Patient Tobacco Use Status Current everyday Tobacco 01/13/24 12:47 Tobacco use type Cigarette 01/13/24 12:47 e-Cigarette/Vaping Use Never Used 01/13/24 12:47 PHQ-9: PHQ-9 Score PHQ-9: Total score 18 01/13/24 12:47 Depression Screening Interpretation: Positive Depression Screening Follow-up: Existing condition and In treatment Thrive Assessment: Date of Thrive Assessment Date Thrive assessed 01/13/24 01/13/24 12:47 Currently or been in a relationship where the following occur: No concerns reported Const General: no acute distress and alert HENMT Ears: TM's normal bilaterally and EAC's normal Throat: Yes posterior oropharynx normal and Yes tonsils normal (no TP congestion noted) Neck Neck: Yes no lymphadenopathy and Yes supple Thyroid: Thyroid normal Resp Auscultation: clear to auscultation bilaterally, no rales and no wheezes Cardio Rate: regular rate Rhythm: regular rhythm Heart sounds: no murmurs GI Palpation (GI): Soft to palpation and nontender Auscultation: normal bowel sounds Back/Spine/Pelvis Thoracic/Lumbar Spine: lumbar spinal tenderness Skin Rashes: no rashes Extrem General: Yes no clubbing, cyanosis or edema Right upper extremity: shoulder/upper arm Details: tenderness Location: of the A-C joint Right lower extremity: hip/thigh Details: tenderness Location: of the hip Left lower extremity: ankle Results Reviewed Results Reviewed: Laboratory Tests 12/26/23 12:26 WBC 9.0 Hgb 12.8 Hct 38.3 Plt Count 278 ESR 19 Sodium 143 Potassium 3.7 Creatinine 0.80 Estimated GFR > 60 Random Glucose 81 Calcium 8.8 D AST 12 ALT 24 C-Reactive Protein 0.48 PEP Interpretation SEE NOTE Triglycerides 140 Cholesterol 146 LDL Cholesterol, Calc 73 HDL Cholesterol 45 25-OH Vitamin D Total 44.2 TSH 1.16 Ur Specific [place] 1.010 Urine Protein Negative Urine Glucose (UA) Negative Urine Blood Negative Urine Nitrite Negative Ur Leukocyte Esterase Trace H MARLI Interpretation SEE NOTE Coding Level of Care Code Est Pt Level 4 (56216) Diagnoses Pure hypercholesterolemia E78.00 Superficial gastritis without hemorrhage, unspecified chronicity K29.30 Chronicity: unspecified Thoracic radiculopathy M54.14 Arthritis, multiple joint involvement M12.9 Derangement of ankle, left M24.9 Smoker F17.200 Obesity (BMI 30-39.9) E66.9 Assessment & Plan Assessment & Plan (1) Pure hypercholesterolemia: Code(s): E78.00 - Pure hypercholesterolemia, unspecified Category: Medical Plan: Results of her labs done a couple of weeks ago reviewed and discussed with patient - she is advised that her cholesterol levels have improved significantly from previous and that she should stay on her current cholesterol Rx Reinforced low cholesterol diet Continue Atorvastatin 40 mg QD Will recheck her labs and fasting lipids in 4 months for follow up (2) Superficial gastritis without hemorrhage: Code(s): K29.30 - Chronic superficial gastritis without bleeding Category: Medical Qualifiers: Chronicity: unspecified Qualified Code(s): K29.30 - Chronic superficial gastritis without bleeding Plan: EGD with biopsies done in March 2019 showed (+) acute ulcers at the small bowel anastomotic site; gastric mucosa showed (+) erythema but biopsy was negative; it was also negative for H pylori Repeat EGD done in November 2019 shows mild gastric erythema and a grade 3 ulcer on the Keysha limb of the jejunum about 15 to 20 mm in diameter; biopsies were taken from these 2 sites and they came back negative for dysplasia or malignancy Follow up EGD in 2020 revealed similar findings Continue Omeprazole 40 mg BID, Famotidine 40 mg Q HS and Sucralfate 1 gm TID with meals and at bedtime Follow-up with GI as scheduled (3) Thoracic radiculopathy: Code(s): M54.14 - Radiculopathy, thoracic region Category: Medical Plan: Follow up with pain management as scheduled (4) Arthritis, multiple joint involvement: Code(s): M12.9 - Arthropathy, unspecified Category: Medical Plan: Follow up with rheumatology as scheduled - she is now [place] [facility] [place] [facility] [place] [facility] that rheumatology initially suspected that she may have psoriatic arthritis but as of her last visit, was advised that she most likely just had degenerative OA Her serum inflammatory markers on her recent labs have all come back normal (5) Derangement of ankle, left: Code(s): M24.9 - Joint derangement, unspecified Category: Medical Plan: (+) Hx of fracture of the left ankle, S/P surgical repair, with consequent chronic arthropathy of the ankle Continue Gabapentin 800 mg TID (6) Smoker: Code(s): F17.200 - Nicotine dependence, unspecified, uncomplicated Category: Social Hx Plan: Patient is counseled again to continue working on complete smoking cessation (7) Obesity (BMI 30-39.9): Comment: S/P gastric bypass in 2014 Code(s): E66.9 - Obesity, unspecified Category: Medical Plan: Reinforced diet; exercise and weight loss are unrealistic currently given patient's multiple physical issues Plan Follow up in 4 months Orders: Orders Lipid Panel 4 Months E78.00 - Pure hypercholesterolemia, unspecified Comprehensive Truchas. Panel Fast 4 Months E78.00 - Pure hypercholesterolemia, unspecified
[2024-01-13 12:38] VITALS: BP 128/82; PULSE 72; O2SAT 96; BMI 30.1
== END 2024-01-13 13:16 | disposition home or self-care (01) ==
PROVIDERS: PCP Internal Medicine; Visit Provider Internal Medicine
DX: E78.00 Pure hypercholesterolemia, unspecified (principal); E66.811 Obesity, class 1; Z68.30 Body mass index [BMI] 30.0-30.9, adult; K29.30 Chronic superficial gastritis without bleeding; M54.14 Radiculopathy, thoracic region; M12.9 Arthropathy, unspecified; M24.9 Joint derangement, unspecified; F17.210 Nicotine dependence, cigarettes, uncomplicated; Z23 Encounter for immunization

== ENCOUNTER → 2024-01-13 12:25 | Outpatient (BNVA) | payer MEDICARE, MEDICAID, SELFPAY | PROVIDERS: PCP Internal Medicine; Visit Provider Internal Medicine | DX: E78.00 Pure hypercholesterolemia, unspecified (principal); K29.30 Chronic superficial gastritis without bleeding; M54.14 Radiculopathy, thoracic region; M12.9 Arthropathy, unspecified; M24.9 Joint derangement, unspecified; E66.9 Obesity, unspecified; F17.200 Nicotine dependence, unspecified, uncomplicated; Z71.6 Tobacco abuse counseling | CPT/HCPCS: 90471; 96127; 99212 ==

== ENCOUNTER 2024-03-13 15:07 | Outpatient (AMB) | payer MEDICARE, MEDICAID, SELFPAY ==
--- NOTE | 2024-03-13 15:08 | MHC.OFFVIS ---
Vital Signs 03/13/24 15:13 Height 5 ft 9 in Weight 212 lb 1.355 oz BMI 31.3 BP 116/62 Blood Pressure Location Lt brachial Position Sitting Respiration 16 Pulse 84 Pulse Source Pulse Oximeter Pulse Oximetry (%) 96 Oxygen Delivery Method Room Air Intake Visit Reasons: Arthritis/CM Intake Note: Patient presents for Arthritis. I'm having a flare up on both shoulders and lower to middle back. Allergies adhesive tape [TAPE,ADHESIVE] Allergy (Severe, Verified 03/13/24 15:12) ANAPHYLAXIS diphenhydramine [From BENADRYL] Allergy (Severe, Verified 03/13/24 15:12) ANAPHYLAXIS erythromycin base [ERYTHROMYCIN BASE] Allergy (Severe, Verified 03/13/24 15:12) ANAPHYLAXIS latex [LATEX] Allergy (Severe, Verified 03/13/24 15:12) ANAPHYLAXIS levofloxacin [From LEVAQUIN] Allergy (Severe, Verified 03/13/24 15:12) ANAPHYLAXIS meperidine [From DEMEROL] Allergy (Severe, Verified 03/13/24 15:12) ANAPHYLAXIS morphine [MORPHINE] Allergy (Unknown, Verified 03/13/24 15:12) UNKNOWN RED DYE IN TYLOX Allergy (Unknown, Uncoded 01/13/24 13:05) Unknown pollen Allergy (Uncoded 01/13/24 13:05) Sneezing Medication List - Last Reconciled 03/13/24 by Marcel Uriarte MD albuterol sulfate 90 mcg/actuation (Ventolin HFA) 2 puffs inhalation Q6H PRN atorvastatin 40 mg PO DAILY 90 days calcium carbonate-vitamin D3 600 mg-10 mcg (400 unit) (Calcium 600 + D(3)) 1 tab PO BID 30 days diclofenac sodium 1% 2 - 3 grams topical TID dicyclomine 20 mg (2 x 10 mg) PO BID famotidine 40 mg PO BEDTIME PRN gabapentin 800 mg PO TID lrumteau-vag-fijr-FA-vit K-lut 8 mg iron-400 mcg-50 mcg (Centrum Silver Women) 1 tab PO DAILY omeprazole 40 mg PO BID ondansetron 4 mg PO Q8H PRN sucralfate 1 g PO QID HPI Comments Details: This is a 63-year-old female with generalized osteoarthritis who presents for follow-up. She is complaining of right lower back pain that intermittently radiates down her right buttock and right lower extremity. She follows up with pain management. She stated that she has been having bilateral shoulder pain and stiffness, more severe on the left, requesting an injection. The injections done in both thumbs have provided significant relief [facility] Medical History Smoker Osteoarthritis of carpometacarpal joint of left thumb Inflammatory arthropathy Screening examination for infectious disease Pain in joint, multiple sites Arthritis, multiple joint involvement Migraine Epidermal cyst Obesity (BMI 30-39.9) Derangement of ankle, left Neuropathy Thoracic radiculopathy Superficial gastritis without hemorrhage Pure hypercholesterolemia Surgical History Hx of toe surgery Hx of colonoscopy History of esophagogastroduodenoscopy (EGD) History of surgery History of oral surgery History of eye surgery H/O gastric bypass History of foot surgery History of elbow surgery History of cholecystectomy History of tonsillectomy Family History Mother Diabetes mellitus Arthritis Father Cardiovascular disease Brother Asbestosis Mesothelioma Arthritis Sister Mental health problem Arthritis Cancer Other Substance abuse Social History Household Members: Family and Children Housing: House Are you a primary career coach to a significant other at home: No Do you presently have visiting nurse or other home services: No Alcohol intake: current Alcohol intake frequency: holidays/special occasions only Alcohol type: wine Patient Tobacco Use Status: Current everyday Tobacco user Tobacco use type: Cigarette Cigarettes Per Day: 5 Years Smoked: 54 e-Cigarette/Vaping Use: Never Used Second Hand Smoke Exposure: Yes Substance Use Type: Marijuana service: No Current occupational status: disabled Cognitive needs: Yes (cane) Hearing needs: No Vision needs: Yes Review of Systems Musc Reports back pain, Reports arthralgias, Reports radiating pain into limb and Reports stiffness Physical Exam Vital Signs: Last Vital Signs Pulse 84 03/13/24 15:13 Resp 16 03/13/24 15:13 BP 116/62 03/13/24 15:13 Pulse Ox 96 03/13/24 15:13 Oxygen Delivery Method Room Air 03/13/24 15:13 BMI result Body Mass Index 31.3 Const General: cooperative, healthy appearing and comfortable Nutritional Appearance: overweight Orientation/consciousness: patient oriented x3 Limitations: no limitations HEENT Head: Yes normocephalic and Yes atraumatic Mouth: moist mucous membranes Resp Effort & Inspection: normal respiratory effort and able to speak in complete sentences Cardio Rate: regular rate Neuro General: patient oriented x3 Extrem Other: Mild osteoarthritic changes of both hands Reduced range of motion of both shoulders bilaterally Mildly positive empty can test on the left Bilateral shoulder crepitus with movement Office Procedures AMB Joint Injection/Aspiration Joint Injection/Aspiration Primary Site: left shoulder Prep: site was prepped using sterile technique Injected: 40 mg of, Kenalog, with 1 mL of, 1% plain lidocaine and in the subcromial space Approach Used: posterolateral Procedure: The patient tolerated the procedure well Coding Details: With the patient's consent the left shoulder was prepped with ChloraPrep and alcohol. Under a topical ethyl chloride spray the left subacromial space was injected with 40 mg of triamcinolone and 1 cc of 1% lidocaine. The patient tolerated the procedure without any acute adverse effects. 40287 - Large joint Procedure code (CPT) selection complete Office Meds Kenalog 40 mg/mL suspension for injection Performing Provider: Marcel Uriarte MD Performing Location: [facility] [place] [facility] Administered by: Marcel Uriarte MD on 03/13/24 15:40 Dose Route Admin Location Dispensed Lot Number Expiration Date [facility] [employer] Cle[employer] 40 mg intra-articular Left shoulder 1 mL [id number] 10/06/25 [address]-4 [employer] lidocaine (PF) 10 mg/mL (1 %) injection solution Performing Provider: Marcel Uriarte MD Performing Location: [facility] [place] Administered by: Marcel Uriarte MD on 03/13/24 15:40 Dose Route Admin Location Dispensed Lot Number Expiration Date [facility] [employer] Cleaning Manager 10 mg intra-articular Left shoulder 2 mL [id number] 07/12/26 96674-563-48 [facility] Assessment & Plan Assessment & Plan (1) Generalized osteoarthritis: Code(s): M15.9 - Polyosteoarthritis, unspecified Category: Medical Plan: This is a 64-year-old female with generalized osteoarthritis who presents for follow-up. Today she is mostly complaining of left shoulder pain as well as right lower back pain she follows up regularly with pain management. Advised patient to return to pain management for evaluation of her back pain, she is requesting an injection for her left shoulder, her right shoulder is also symptomatic but not nearly as severe as the left. with patient's consent, left shoulder was injected with Kenalog Flexeril trial for back spasms Follow-up in one-month to inject right shoulder Plan I spent 25 minutes reviewing patient's chart, evaluating patient, , counseling patient and documenting in the chart Orders: Orders AMB Joint Injection/Aspiration Today M75.52 - Bursitis of left shoulder Medications: New lidocaine (PF) 10 mg intra-articular ONCE 2 mL 0RF M75.52 - Bursitis of left shoulder cyclobenzaprine Can cause dizziness/grogginess/lightheadedness, please do not drive or operate heavy machinery if feeling as such 5 - 10 mg (1 - 2 x 5 mg) PO BEDTIME PRN 20 tabs 0RF muscle spasm Kenalog (triamcinolone acetonide) 40 mg intra-articular ONCE 1 mL 0RF NS M75.52 - Bursitis of left shoulder Coding Level of Care Code Est Pt Level 3 (81581) Diagnoses Generalized osteoarthritis M15.9 CPT Codes Coding - 83008 Large joint: 00913 - Large joint ([id number])
[2024-03-13 15:13] VITALS: BP 116/62; PULSE 84; RESP 16; O2SAT 96; BMI 31.3
== END 2024-03-13 15:37 | disposition home or self-care (01) ==
PROVIDERS: PCP Internal Medicine; Visit Provider Student in an Organized Health Care Education/Training Program
DX: M75.52 Bursitis of left shoulder (principal); M15.9 Polyosteoarthritis, unspecified
CPT/HCPCS: 20610; 99213

== ENCOUNTER → 2024-03-13 15:07 | Outpatient (BNVA) | payer MEDICARE, MEDICAID, SELFPAY | PROVIDERS: PCP Internal Medicine; Visit Provider Student in an Organized Health Care Education/Training Program | DX: M15.9 Polyosteoarthritis, unspecified (principal) | CPT/HCPCS: 20610; 99212; J2003; J3300 ==

== ENCOUNTER → 2024-03-23 10:44 | Outpatient (BNVA) | payer MEDICARE, MEDICAID, SELFPAY | PROVIDERS: PCP Internal Medicine; Visit Provider Internal Medicine Gastroenterology | DX: K25.9 Gastric ulcer, unspecified as acute or chronic, without hemorrhage or perforation (principal); K59.00 Constipation, unspecified; R19.7 Diarrhea, unspecified; R11.10 Vomiting, unspecified | CPT/HCPCS: 99212 ==

== ENCOUNTER 2024-04-02 10:21 | Day surgery (SDC) | payer MEDICARE, MEDICAID, SELFPAY ==
[2024-04-02 09:03] VITALS: BMI 30.7
[2024-04-02 10:24] VITALS: BP 140/76; PULSE 75; RESP 20; TEMP 36.9; O2SAT 96
[2024-04-02] MEDS: Lactated Ringers 1,000 ML 50 ML IVCONT (10:49)
--- NOTE | 2024-04-02 10:50 | MHC.SHP ---
Pre-Procedural Eval Section A - 24 Hr Update-Section A only Date of Service: 04/02/24 The patient is an INPATIENT: No The patient has been examined within 24 hours of the surgical procedure. The History & Physical has been completed within 30 days and I have reviewed it.: Yes Section B - Complete if H&P > 30 days Chief Complaint: Gastric ulcer, unspecified as acute or chronic, Allergies: Allergies Allergy/AdvReac Type Severity Reaction Status Date / Time adhesive tape [TAPE,ADHESIVE] Allergy Severe ANAPHYLAXIS Verified 03/23/24 11:07 diphenhydramine Allergy Severe ANAPHYLAXIS Verified 03/23/24 11:07 [From BENADRYL] erythromycin base Allergy Severe ANAPHYLAXIS Verified 03/23/24 11:07 [ERYTHROMYCIN BASE] latex [LATEX] Allergy Severe ANAPHYLAXIS Verified 03/23/24 11:07 levofloxacin [From LEVAQUIN] Allergy Severe ANAPHYLAXIS Verified 03/23/24 11:07 meperidine [From DEMEROL] Allergy Severe ANAPHYLAXIS Verified 03/23/24 11:07 morphine [MORPHINE] Allergy Unknown UNKNOWN Verified 03/23/24 11:07 RED DYE IN TYLOX Allergy Unknown Unknown Uncoded 01/13/24 13:05 pollen Allergy Sneezing Uncoded 01/13/24 13:05 Plan Diagnosis/Plan: Unchanged I have reviewed the history and physical and performed a pertinent physical examination on my patient. No changes have occurred unless specified. Time Spent With Patient Time: Total time managing care of this patient today ____ minutes.
--- NOTE | 2024-04-02 10:50 | HO.ANESPROP2 ---
HPI - Anesthesia Eval Consult details Narrative: 64 yo F presenting for EGD [facility] Active Problems Active Problems: All Active Problems Generalized osteoarthritis (Acute) Osteoarthritis of right thumb (Acute) Smoker (Acute) Medicare annual wellness visit, initial (Acute) Osteoarthritis of carpometacarpal joint of left thumb (Acute) Inflammatory arthropathy (Acute) Screening examination for infectious disease (Acute) Callus between toes (Acute) Preoperative examination (Acute) Pain in joint, multiple sites (Acute) Arthritis, multiple joint involvement (Acute) Abscess of left ear canal (Acute) Migraine (Acute) Allergy to alpha-gal (Acute) Polyarthralgia (Acute) Sprain of left knee (Acute) Constipation (Acute) Screening-pulmonary TB (Acute) Pre-op evaluation (Acute) Foot fracture, left (Acute) Stomach ulcer (Acute) LLQ abdominal pain (Acute) Status post gastric bypass for obesity (Acute) Abdominal pain, acute, epigastric (Acute) Cutaneous abscess of axilla (Acute) Cutaneous abscess of chest wall (Acute) Epidermal inclusion cyst (Acute) Epidermal cyst (Acute) Obesity (BMI 30-39.9) (Acute) Derangement of ankle, left (Acute) Neuropathy (Acute) Thoracic radiculopathy (Acute) Superficial gastritis without hemorrhage (Acute) Pure hypercholesterolemia (Acute) Past Medical History Medical History Smoker Osteoarthritis of carpometacarpal joint of left thumb Inflammatory arthropathy Screening examination for infectious disease Pain in joint, multiple sites Arthritis, multiple joint involvement Migraine Epidermal cyst Obesity (BMI 30-39.9) Derangement of ankle, left Neuropathy Thoracic radiculopathy Superficial gastritis without hemorrhage Pure hypercholesterolemia Family History Family History Mother Diabetes mellitus Arthritis Father Cardiovascular disease Brother Asbestosis Mesothelioma Arthritis Sister Mental health problem Arthritis Cancer Other Substance abuse Family history of problems with anesthesia: No Surgical History Surgical History Hx of toe surgery Hx of colonoscopy History of esophagogastroduodenoscopy (EGD) History of surgery History of oral surgery History of eye surgery H/O gastric bypass History of foot surgery History of elbow surgery History of cholecystectomy History of tonsillectomy History of Problems with Anesthesia: No Social History Social History Household Members: Family and Children Housing: House Are you a primary vp care management to a significant other at home: No Do you presently have visiting nurse or other home services: No Alcohol intake: current Alcohol intake frequency: holidays/special occasions only Alcohol type: wine Patient Tobacco Use Status: Current everyday Tobacco user Tobacco use type: Cigarette Cigarettes Per Day: 5 Years Smoked: 54 e-Cigarette/Vaping Use: Never Used Second Hand Smoke Exposure: Yes Substance Use Type: Marijuana Have you been hit, kicked, punched, or otherwise hurt by someone within the past year? If so, by whom?: No Are you DNR?: No Advance Directives: No Advance Directives Information Provided: Yes Nutrition Risks: No Nutritional Risk service: No Current occupational status: disabled Cognitive needs: Yes (cane) Hearing needs: No Vision needs: Yes Meds Allergies Allergy/AdvReac Type Severity Reaction Status Date / Time adhesive tape [TAPE,ADHESIVE] Allergy Severe ANAPHYLAXIS Verified 03/23/24 11:07 diphenhydramine Allergy Severe ANAPHYLAXIS Verified 03/23/24 11:07 [From BENADRYL] erythromycin base Allergy Severe ANAPHYLAXIS Verified 03/23/24 11:07 [ERYTHROMYCIN BASE] latex [LATEX] Allergy Severe ANAPHYLAXIS Verified 03/23/24 11:07 levofloxacin [From LEVAQUIN] Allergy Severe ANAPHYLAXIS Verified 03/23/24 11:07 meperidine [From DEMEROL] Allergy Severe ANAPHYLAXIS Verified 03/23/24 11:07 morphine [MORPHINE] Allergy Unknown UNKNOWN Verified 03/23/24 11:07 RED DYE IN TYLOX Allergy Unknown Unknown Uncoded 01/13/24 13:05 pollen Allergy Sneezing Uncoded 01/13/24 13:05 Active Medications: Current Medications Lactated Ringer's (Lr) 1,000 mls @ 50 mls/hr IVCONT .Q20H PATO Last Admin: 04/02/24 10:49 Dose: 50 mls/hr Home Medications ?Medication ?Instructions ?Recorded ?Confirmed ?Last Taken ?Type [id number] 8 mg-folic 400 1 tab PO DAILY 03/22/20 01/13/24 Unknown History mcg-K 50 mcg-lutein 300 mcg tablet (Centrum Silver Women) diclofenac sodium 1 % topical gel 2 - 3 g topical TID 07/03/23 10/07/24 Unknown History Exam Exam Date and Time: 04/02/24 1050 Height,Weight and Vital Signs: Height 5 ft 9 in Weight 94.347 kg Last Vital Signs Temp 98.5 F 04/02/24 10:24 Pulse 75 04/02/24 10:24 Resp 20 04/02/24 10:24 BP 140/76 H 04/02/24 10:24 Pulse Ox 96 04/02/24 10:24 O2 Del Method Room Air 04/02/24 10:24 Airway Mallampati Class: I TM Dist: >3cm Neck ROM: Full Loose/Missing/Broken Teeth: No (patient denies any loose or broken teeth) Heart: S1S2 Lungs: CTAB Assessment and Plan Assessment Anesthesia Assessment: Anesthesia Plan Discussed and Chart Reviewed Final Anesthetic Review Family History of Problems with Anesthesia: No History of Problems with Anesthesia: No NPO: Yes ASA Class: II Final Preanesthetic Review: No Changes in Pt Med Stat, Meds/Allgs Chart Reviewed, Consent Obtained/Reviewed and Anes Risks/Benef Reviewed Patient Risk: Low Procedure Risk: Low Anesthetic Plan Anesthetic Plan: MAC: and Agree w/ Assess. and Plan Disposition: Standard PACU
--- NOTE | 2024-04-02 11:20 | W.PM.OPN ---
Operative Note Operative Note Date of Service: 04/02/24 Narrative: Procedure Description: EGD Indication: dysphagia and epiogastric discomfort Anesthesia: MAC FLEXIBLE TRANSORAL UPPER GASTROINTESTINAL ENDOSCOPY UPPER ENDOSCOPY Consent: Indications for the procedure and potential complications of bleeding, perforation, reaction to medications and missed diagnosis were discussed with the patient and informed consent was obtained. Instrument: Olympus GIF H 190 J mid size upper endoscope Monitoring: Vital signs and clinical assessment, continuous EKG monitoring, Pulse oximetry, Carbon Dioxide monitoring and blood pressure monitoring were done throughout the procedure. Procedure: The patient was placed in the left lateral decubitis position and pre-procedure medications were administered and a bite block was placed. The endoscope was inserted into the mouth and advanced under direct vision to the third part of duodenum. A careful inspection was made as the upper endoscope was withdrawn including a retroflexed examination of the proximal stomach; Findings and interventions are described below. Findings: Larynx:normal Esophagus: GE junction at 37 cm, diaphragm hiatus at 37 cm, normal mucosa - balloon dilation done to 20 mm at LES and UES, no tear seen Stomach pouch: ulcerations noted at anastomosis x2 measuring about 10 mm. There was also a fistula noted and the retained stomach was intubated. X2 clips applied to try to close the fistula . Grade 2 flap valve on retroflexed examination of the cardia. jejunum: small anastomotic ulcer noted on brittany limb, much improved from before. Intervention: balloon dilation, clips to close fistula Impression/Findings: anastomotic ulcerations gastro gastric fistula PLAN: cont with PPI and carafate, avoid smoking GERD precautions repeat EGD in 4-6 months, if fistula still open then try OTS clip or mantis clip
[2024-04-02 11:23] VITALS: BP 136/67; PULSE 70; RESP 16; TEMP 36.9; O2SAT 97
[2024-04-02 11:38] VITALS: BP 132/70; PULSE 70; RESP 18; TEMP 36.4; O2SAT 96
== END 2024-04-02 12:42 | disposition home or self-care (01) ==
PROVIDERS: PCP Internal Medicine; Visit Provider Internal Medicine Gastroenterology
PROC: 0DJ08ZZ Inspection of Upper Intestinal Tract, Via Natural or Artificial Opening Endoscopic (ICD-10-PCS; CPT 43235; principal; 2024-04-02 13:30)
DX: K31.6 Fistula of stomach and duodenum (principal); K25.9 Gastric ulcer, unspecified as acute or chronic, without hemorrhage or perforation; K63.89 Other specified diseases of intestine; R13.10 Dysphagia, unspecified; E78.00 Pure hypercholesterolemia, unspecified; F17.210 Nicotine dependence, cigarettes, uncomplicated; F11.20 Opioid dependence, uncomplicated; Z98.84 Bariatric surgery status; Z90.49 Acquired absence of other specified parts of digestive tract; Z79.899 Other long term (current) drug therapy
CPT/HCPCS: 43249; 43255; C1726; J2003; J2704

== ENCOUNTER → 2024-04-02 10:21 | Outpatient (BNV) | payer MEDICARE, MEDICAID, SELFPAY | PROVIDERS: PCP Internal Medicine; Visit Provider Internal Medicine Gastroenterology | DX: R13.10 Dysphagia, unspecified (principal); R10.13 Epigastric pain; K31.6 Fistula of stomach and duodenum; K25.9 Gastric ulcer, unspecified as acute or chronic, without hemorrhage or perforation | CPT/HCPCS: 43249; 43255 ==

== ENCOUNTER 2024-04-21 14:19 | Emergency (ER) | payer MEDICARE, MEDICAID, SELFPAY ==
--- NOTE | ~2024-04-21 | CT_ITS ---
CLINICAL HISTORY: lower ABD pain, vomiting, gastric clips 12 CT abdomen and pelvis with contrast Comparison: CT - CT ABDOMEN PELVIS W CON - 04/27/20 14:33 EST Findings: No consolidation or effusion. Hepatomegaly. Tiny bilateral intermediate dense renal cysts. This may be further evaluated with ultrasound. Evidence of prior gastric bypass. No bowel obstruction. Mild irregularity with mural thickening along the gastroenteric anastomosis in the left upper quadrant reflect a component of gastro enteritis. There is additional diffuse small bowel mural thickening with mucosal hyperemia throughout the left abdomen. No bowel obstruction. Scattered colonic diverticulosis without diverticulitis or colitis. Osteopenia with diffuse multilevel spondylosis. Postcholecystectomy. Mildly prominent CBD, may be related to postoperative changes however is nonspecific. IMPRESSION: Findings suggestive of gastroenteritis, with irregularity of the gastroenteric anastomosis. Clinical correlation with follow-up and/or endoscopy advised. This document has been electronically signed by: Holland Christianson MD on 04/21/2024 23:58:28
[2024-04-21 14:38] VITALS: BP 168/81; PULSE 78; RESP 18; TEMP 36.6; O2SAT 98; BMI 31.8
--- NOTE | 2024-04-21 17:11 | ECG_ITS ---
Test Reason : ABD PAIN Blood Pressure : */* mmHG Vent. Rate : 67 BPM Atrial Rate : 67 BPM P-R Int : 156 ms QRS Dur : 84 ms QT Int : 404 ms P-R-T Axes : 78 16 61 degrees QTcB Int : 426 ms Normal sinus rhythm Normal ECG When compared with ECG of 28-May-2023 13:34, No significant change was found Referred By: Rajesh Valdez Electronically Signed By: Yovani Mendez
[2024-04-21 18:00] LABS: MANUAL DIFF FLAG NO
[2024-04-21 18:04] LABS: Basophils Absolute Auto 0.1 X10*3/uL (0.0-0.2); Basophils Percent Auto 0.9 % (0-2); Eosinophils Absolute Auto 0.1 X10*3/uL (0.0-0.4); Eosinophils Percent Auto 0.4 % (0-4); Hematocrit 44.7 % (37.0-47.0); Hemoglobin 15.1 g/dl (12.0-16.0); Imm Gran Abs Auto 0.06 X10*3/uL (0.00-0.03); Imm Gran Pct Auto 0.5 % (0.0-0.4); Lymphocytes Absolute Auto 2.3 X10*3/uL (1.2-4.9); Lymphocytes Percent Auto 18.7 % (20-40); Mean Corpuscular HGB Conc 33.8 g/dl (31.0-35.0); Mean Corpuscular Hemoglobin 30.8 pg (27.0-33.0); Mean Corpuscular Volume 91.2 fL (80.0-98.0); Mean Platelet Volume 10.4 fL (9.4-12.3); Monocytes Absolute Auto 0.9 X10*3/uL (0.1-1.2); Monocytes Percent Auto 6.9 % (2-11); Neutrophils Absolute Auto 9.1 x10*3/uL (2.0-8.3); Neutrophils Percent Auto 72.6 % (45-73); Platelet Count 286 X10*3/uL (160-400); Red Cell Distribution Width 14.1 % (11.0-16.0); White Blood Count 12.5 X10*3/uL (4.8-10.8)
[2024-04-21 18:10] LABS: Prothrombin Time 11.9 SEC (10.9-12.4)
[2024-04-21 18:30] LABS: Alanine Aminotransferase 12 U/L (0-31); Albumin Level 4.4 g/dL (3.5-5.0); Alkaline Phosphatase 98 U/L (39-117); Anion Gap 11 (12-20); Aspartate Amino Transferase 22 U/L (5-31); Bilirubin Total 0.4 mg/dL (0.0-1.0); Blood Urea Nitrogen 5 mg/dL (9-16); Calcium 9.4 mg/dL (8.4-10.2); Carbon Dioxide 27 mmol/L (22-29); Chloride 105 mmol/L (96-108); Creatinine Clr Calc Pharmacy 84.9; Estimated Glomerular Filt Rate > 60; Glucose Random 104 mg/dL (60-115); Lipase 16 U/L (8-78); Potassium 5.1 mmol/L (3.3-5.1); Sodium 138 mmol/L (135-145); Troponin-I High Sensitivity < 2.7 ng/L (<3.5-17.0)
--- NOTE | 2024-04-21 19:12 | ED_ITS ---
HPI - General Adult General Chief complaint: Abdominal Pain Stated complaint: Abd pain post-op Time Seen by Provider: 04/21/24 21:26 Source: patient Mode of arrival: ambulatory Limitations: no limitations History of Present Illness ED Provider: Adrienne Tang NP HPI narrative: Patient is a 64-year-old female with past medical history of osteoarthritis, migraine, obesity, radiculopathy, gastritis and gastric ulcer, hypercholesterolemia presenting to emergency department for evaluation of lower abdominal pain radiating to the esophagus with onset 5 days ago. Endorses having decreased appetite and decreased oral intake nausea and bilious nonbloody emesis small volume every 30 minutes. Reports she can not tolerate any oral intake including her acid reflux medications. States she has not had any solid intake over the past 5 days aside from 2 pieces of toast yesterday night which she immediately vomited.. On 04/02/2024 she underwent upper endoscopy and balloon dilation with Dr. Scott found to have gastric ulcer, ulcer noted on brittany limb, also found to have a fistula for which 2 clips were applied for closure. Denies fevers, chills, hematemesis, diarrhea, constipation, hematochezia, melena, dysuria, urinary frequency, urinary urgency, urinary hesitancy, hematuria. denies pelvic pain or abnormal vaginal discharge. Related Data Home Medications ?Medication ?Instructions ?Recorded ?Confirmed [id number] 8 mg-folic 400 1 tab PO DAILY 03/22/20 01/13/24 mcg-K 50 mcg-lutein 300 mcg tablet (Centrum Silver Women) diclofenac sodium 1 % topical gel 2 - 3 g topical TID 10/08/22 01/13/24 Previous Rx's ?Medication ?Instructions ?Recorded sucralfate 1 gram tablet 1 g PO QID #120 tabs 12/02/20 albuterol sulfate 90 mcg/actuation 2 puff inhalation Q6H PRN 06/12/22 aerosol inhaler (Ventolin HFA) shortness of breath or wheezing #8.5 grams gabapentin 800 mg tablet 800 mg PO TID #270 tabs 05/28/23 calcium 600 mg (as 1 tab PO BID 30 days #60 tabs 09/19/23 carbonate)-vitamin D3 10 mcg (400 unit) tablet (Calcium 600 + D(3)) atorvastatin 40 mg tablet 40 mg PO DAILY 90 days #90 tabs 03/20/24 dicyclomine 10 mg capsule 20 mg (2 x 10 mg) PO BID #120 caps 03/23/24 famotidine 40 mg tablet 40 mg PO BEDTIME PRN for heartburn 03/23/24 #90 tabs pantoprazole 40 mg granules 40 mg PO DAILY #30 ea 03/23/24 delayed-release for susp in packet ondansetron 4 mg disintegrating 4 mg PO Q8H PRN nausea and 04/22/24 tablet vomiting #10 tabs Allergies Allergy/AdvReac Type Severity Reaction Status Date / Time adhesive tape [TAPE,ADHESIVE] Allergy Severe ANAPHYLAXIS Verified 04/21/24 14:41 diphenhydramine Allergy Severe ANAPHYLAXIS Verified 04/21/24 14:41 [From BENADRYL] erythromycin base Allergy Severe ANAPHYLAXIS Verified 04/21/24 14:41 [ERYTHROMYCIN BASE] latex [LATEX] Allergy Severe ANAPHYLAXIS Verified 04/21/24 14:41 levofloxacin [From LEVAQUIN] Allergy Severe ANAPHYLAXIS Verified 04/21/24 14:41 meperidine [From DEMEROL] Allergy Severe ANAPHYLAXIS Verified 04/21/24 14:41 morphine [MORPHINE] Allergy Unknown UNKNOWN Verified 04/21/24 14:41 RED DYE IN TYLOX Allergy Unknown Unknown Uncoded 04/21/24 14:41 pollen Allergy Sneezing Uncoded 04/21/24 14:41 Review of Systems 2 Review of Systems: Yes all other systems are reviewed and are negative PMFSH Past Medical History Attestation statement: The following information was validated with the patient. Source: old records reviewed Medical History Smoker Osteoarthritis of carpometacarpal joint of left thumb Inflammatory arthropathy Screening examination for infectious disease Pain in joint, multiple sites Arthritis, multiple joint involvement Migraine Epidermal cyst Obesity (BMI 30-39.9) Derangement of ankle, left Neuropathy Thoracic radiculopathy Superficial gastritis without hemorrhage Pure hypercholesterolemia Surgical History Hx of toe surgery Hx of colonoscopy History of esophagogastroduodenoscopy (EGD) History of surgery History of oral surgery History of eye surgery H/O gastric bypass History of foot surgery History of elbow surgery History of cholecystectomy History of tonsillectomy Family History Family History Mother Diabetes mellitus Arthritis Father Cardiovascular disease Brother Asbestosis Mesothelioma Arthritis Sister Mental health problem Arthritis Cancer Other Substance abuse Social History Social History Household Members: Family and Children Housing: House Are you a primary before and after school daycare worker to a significant other at home: No Do you presently have visiting nurse or other home services: No Alcohol intake: current Alcohol intake frequency: holidays/special occasions only Alcohol type: wine Patient Tobacco Use Status: Current everyday Tobacco user Tobacco use type: Cigarette Cigarettes Per Day: 5 Years Smoked: 54 e-Cigarette/Vaping Use: Never Used Second Hand Smoke Exposure: Yes Substance Use Type: Marijuana service: No Current occupational status: disabled Cognitive needs: Yes (cane) Hearing needs: No Vision needs: Yes Physical Exam ED Vital Signs: Vital Signs - 24 hr 04/21/24 20:07 04/21/24 21:38 04/22/24 00:46 Temperature 97.8 F 98.2 F 97.4 F Pulse Rate 70 87 59 Respiratory Rate 18 14 16 Blood Pressure 129/81 193/93 H 142/100 H Pulse Oximetry 98 96 98 Oxygen Delivery Method Room Air Room Air Room Air 04/22/24 01:28 Temperature 97.4 F Pulse Rate 59 Respiratory Rate 16 Blood Pressure 142/100 H Pulse Oximetry 98 Oxygen Delivery Method Room Air BMI result Body Mass Index 31.8 Appearance: Alert.?Oriented to person, place and time. No acute distress.?Normal affect.?? Neck: Normal inspection.? Neck supple.?? CVS: Heart sounds normal. Normal heart rate and rhythm.? Pulses normal.?? Respiratory: No respiratory distress.? Lung sounds clear to auscultation bilaterally?? Abdomen: Soft with diffuse lower abdominal tenderness upon palpation. No rebound tenderness at McBurney's point. Negative psoas sign. Negative Rovsing sign. Negative Nogueira sign. No CVAT. Normoactive bowel sounds. No pulsatile mass.?? Skin: Skin warm and dry.? Normal skin color.? Extremities: No lower extremity edema.? Neuro: Moves all extremities spontaneously. Sensation intact bilaterally. Ambulates with normal steady gait. Course Course Course Narrative: RME: 64 yold female presents to the Ed for lower abdominal pain radating to the chest area. Patient states no fever or chills. labs ordered Reevaluation(s) Reevaluation #1: CT of the abdomen and pelvis revealing findings suggestive of gastroenteritis irregularity of the gastroenteric anastomosis I suspect this is secondary to the previously discovered anastomotic ulcer with endoscopy however I did review this finding with patient and advised that she follow-up outpatient with Gastroenterology and return with any new or worsening symptoms or concerns. After receiving IV fluids in addition to ondansetron and famotidine she reports notable improvement in symptoms. She is amenable to trialing water and crackers at this time. At this time she also mentions at home she was drinking quite a bit of coffee as she thought that the heat might help but subsequently was causing her to vomit, I did discuss with her the ascitic nature of coffee and if she has not been to hell rating her antacid medications without vomiting this would not be a good choice of Medications Administered Discontinued Medications Generic Name Dose Route Start Last Admin Trade Name Freq PRN Reason Stop Dose Admin Famotidine 20 mg 04/21/24 21:41 04/21/24 23:06 Famotidine/Pf 20 Mg/2 Ml Vial IVPUSH 04/21/24 21:42 20 mg ONCE ONE Administration Sodium Chloride 1,000 mls @ 999 mls/hr 04/21/24 21:45 04/22/24 00:40 Ns IV 04/21/24 22:45 Infused .Q1H1M PATO Infusion Iohexol 85 ml 04/21/24 23:22 04/21/24 23:23 Iohexol 350 Mg/Ml 100 Ml Infus..Btl IV 04/21/24 23:23 85 ml ONCE ONE Administration Ondansetron HCl 4 mg 04/21/24 21:41 04/21/24 22:59 Ondansetron Hcl 4 Mg/2 Ml Vial IVPUSH 04/21/24 21:42 4 mg ONCE ONE Administration Medical Decision Making Medical Decision Making MDM Narrative: Patient is a 64-year-old female with past medical history of osteoarthritis, migraine, obesity, radiculopathy, gastritis and gastric ulcer, hypercholesterolemia presents for evaluation of lower abdominal pain vomiting and reports of acid reflux/discomfort to the ?esophagus? pointing to the sternal area of the chest. As per HPI had surgery with Dr. Scott 08/02/2023 gastric ulcer and fistula for which surgical clips were placed. Not tolerating oral intake. Overall she appears uncomfortable, she is however afebrile without tachycardia tachypnea or hypoxia. Abdomen is soft, has diffuse lower abdominal tenderness upon palpation but no rigidity or guarding. She has no hypotension. Given her recent surgical obtain CT of the abdomen and pelvis for further evaluation. She received 1 L normal saline IV fluid in addition to Zofran 4 mg IV and famotidine 20 mg IV. Reviewed serum labs obtained prior to my assumption of care CBC reveals mild leukocytosis of 12,500 with left shift. No electrolyte derangement. No TOMASA. LFTs and lipase within normal range. High sensitive troponin below detectable limits, EKG revealing normal sinus rhythm with ventricular rate of 67, QTC 426, no ST elevation, suspect pain to the sternal region is consistent with likely acid reflux/esophagitis rather than ACS. LFTs and lipase within normal range lower suspicion for acute cholecystitis choledocholithiasis, no fever jaundice to suggest cholangitis. Diffuse tenderness throughout the lower abdomen without rebound tenderness at McBurney's point, lower suspicion for appendicitis though will rule out with CT AP, no associated diarrhea or constipation, possibly diverticulitis. No appreciable hernia to suggest strangulation or incarceration. Lower suspicion for bowel obstruction, last normal bowel movement 2 days ago. Differential Diagnosis Differential Diagnoses: The differential diagnosis associated with the presentation includes (See narrative above) Admission/Observation Consideration of admission/observation: Escalation of care including admission/observation considered (See narrative above ) Lab Data MDM Lab Attestation statement: I reviewed the patient's lab results. (See narrative above) 04/21/24 17:54 04/21/24 17:54 Labs: Lab Results 04/21/24 04/22/24 Range/Units 17:54 00:51 WBC 12.5 H (4.8-10.8) X10*3/uL RBC 4.90 (4.20-5.50) X10*6/uL Hgb 15.1 (12.0-16.0) g/dl Hct 44.7 (37.0-47.0) % MCV 91.2 (80.0-98.0) fL MCH 30.8 (27.0-33.0) pg MCHC 33.8 (31.0-35.0) g/dl RDW 14.1 (11.0-16.0) % Plt Count 286 (160-400) X10*3/uL MPV 10.4 (9.4-12.3) fL Immature Gran % (Auto) 0.5 H (0.0-0.4) % Neut % (Auto) 72.6 (45-73) % Lymph % (Auto) 18.7 L (20-40) % [place] % (Auto) 6.9 (2-11) % Eos % (Auto) 0.4 (0-4) % Baso % (Auto) 0.9 (0-2) % Lymph # (Auto) 2.3 (1.2-4.9) X10*3/uL [place] # (Auto) 0.9 (0.1-1.2) X10*3/uL Eos # (Auto) 0.1 (0.0-0.4) X10*3/uL Baso # (Auto) 0.1 (0.0-0.2) X10*3/uL Abs Immat Gran (auto) 0.06 H (0.00-0.03) X10*3/uL Absolute Neuts (auto) 9.1 H (2.0-8.3) x10*3/uL Absolute Nucleated RBC 0.000 (0.0-0.012) X10*3/uL Nucleated RBC % (auto) 0.0 (0.0-0.2) /100WBC PT 11.9 (10.9-12.4) SEC INR 1.0 (0.9-1.1) APTT 37.0 H (26.0-36.8) SEC Sodium 138 (135-145) mmol/L Potassium 5.1 D (3.3-5.1) mmol/L Chloride 105 (96-108) mmol/L Carbon Dioxide 27 (22-29) mmol/L Anion Gap 11 L (12-20) BUN 5 L (9-16) mg/dL Creatinine 0.78 (0.5-1.4) mg/dL Estim Creat Clear Calc 84.9 Estimated GFR > 60 Random Glucose 104 (60-115) mg/dL Calcium 9.4 D (8.4-10.2) mg/dL Total Bilirubin 0.4 (0.0-1.0) mg/dL AST 22 (5-31) U/L ALT 12 (0-31) U/L Alkaline Phosphatase 98 (39-117) U/L Troponin I High Sens < 2.7 (<3.5-17.0) ng/L Total Protein 8.0 (6.5-8.0) g/dL Albumin 4.4 (3.5-5.0) g/dL Lipase 16 (8-78) U/L Urine Color Yellow Urine Appearance Clear Urine pH 5.5 (5.0-9.0) Ur Specific [place] >= 1.030 H (1.005-1.025) Urine Protein Negative (Neg-Trace) mg/dL Urine Glucose (UA) Negative (Negative) mg/dL Urine Ketones Trace (Negative) mg/dL Urine Blood Negative (Negative) Urine Nitrite Negative (Negative) Ur Leukocyte Esterase Small (1+) H (Negative) Urine RBC 0-2 (0-2) /HPF Urine WBC 0-5 (0-5) /HPF Ur Squamous Epith Cells 0-2 (0-2) /HPF Urine Bacteria None Seen (None Seen) Hyaline Casts 0-2 (0-2) /LPF Independent Interpretation I performed an independent interpretation of an: EKG (See narrative above) Radiology Impression Discussion of test interpretation with radiology: I have reviewed the radiologist's reading. Radiologist Impression: CT abdomen and pelvis with contrast Comparison: CT - CT ABDOMEN PELVIS W CON - 04/27/20 14:33 EST Findings: No consolidation or effusion. Hepatomegaly. Tiny bilateral intermediate dense renal cysts. This may be further evaluated with ultrasound. Evidence of prior gastric bypass. No bowel obstruction. Mild irregularity with mural thickening along the gastroenteric anastomosis in the left upper quadrant reflect a component of gastro enteritis. There is additional diffuse small bowel mural thickening with mucosal hyperemia throughout the left abdomen. No bowel obstruction. Scattered colonic diverticulosis without diverticulitis or colitis. Osteopenia with diffuse multilevel spondylosis. Postcholecystectomy. Mildly prominent CBD, may be related to postoperative changes however is nonspecific. IMPRESSION: Findings suggestive of gastroenteritis, with irregularity of the gastroenteric anastomosis. Clinical correlation with follow-up and/or endoscopy advised. Chronic Conditions Patient?s care impacted by: Other (See narrative above) Discharge Plan Discharge Clinical Impression: Gastroenteritis Patient Disposition: Home, Self-Care Instructions: Gastroenteritis (ED) Additional Instructions: Clear liquids over the next 24 hours, refrain from acidic drinks particularly coffee, soda is additionally. Zofran as needed for nausea/vomiting. Follow this by a bland diet, Introduce a bland diet including crackers, bananas, rice, soup, toast, and boiled vegetables. This may progress to plain baked or boiled chicken or turkey. Avoid dairy products or foods high in fat or grease. Follow-up with primary care doctor. Return with any new or worsening symptoms or concerns Prescriptions: New ondansetron 4 mg tablet,disintegrating 4 mg PO Q8H PRN (Reason: nausea and vomiting) Qty: 10 0RF No Action sucralfate 1 gram tablet 1 g PO QID Qty: 120 2RF albuterol sulfate [Ventolin HFA] 90 mcg/actuation HFA aerosol inhaler 2 puff inhalation Q6H PRN (Reason: shortness of breath or wheezing) Qty: 8.5 3RF atorvastatin 40 mg tablet 40 mg PO DAILY 90 Days Qty: 90 1RF gabapentin 800 mg tablet 800 mg PO TID Qty: 270 1RF calcium carbonate-vitamin D3 [Calcium 600 + D(3)] 600 mg-10 mcg (400 unit) tablet 1 tab PO BID 30 Days Qty: 60 5RF diclofenac sodium 1 % gel 2 - 3 g topical TID Centrum Silver Women 8 mg iron-400 mcg-300 mcg tablet 1 tab PO DAILY dicyclomine 10 mg capsule 20 mg PO BID Qty: 120 5RF famotidine 40 mg tablet 40 mg PO BEDTIME PRN (Reason: for heartburn) Qty: 90 5RF pantoprazole [address] for susp in packet 40 mg PO DAILY Qty: 30 3RF Referrals: Ronni Kingsley MD [Primary Care Provider] - Interventions: ED Discharge Assessment Last Done: 04/22/24 01:28 Discharge Date/Time: 04/22/24 01:41 Print Language: Malay
[2024-04-21 20:07] VITALS: BP 129/81; PULSE 70; RESP 18; TEMP 36.6; O2SAT 98
[2024-04-21 21:38] VITALS: BP 193/93; PULSE 87; RESP 14; TEMP 36.8; O2SAT 96
[2024-04-21] MEDS: 0.9 % Sodium Chloride 1,000 ML 999 ML IV (22:59)
[2024-04-21] MEDS: ondansetron HCL 4 MG/2 ML VIAL IVPUSH (22:59)
[2024-04-21] MEDS: Famotidine/PF 20 MG/2 ML VIAL IVPUSH (23:06)
[2024-04-21] MEDS: iohexoL 350 MG/ML 100 ML INFUS..BTL 85 ML IV (23:23)
[2024-04-22 00:46] VITALS: BP 142/100; PULSE 59; RESP 16; TEMP 36.3; O2SAT 98
[2024-04-22 00:59] LABS: Appearance Urine Clear; Color Urine Yellow; Glucose Urine UA Negative (Negative); Leukocyte Esterase Urine Small (1+) (Negative); Nitrite Urine Negative (Negative); PH 5.5 (5.0-9.0); Specific Gravity - Urine >= 1.030 (1.005-1.025); UMIC TRIGGER UACC YES; Urine Blood Negative (Negative); Urine Ketones Trace mg/dL (Negative); Urine Protein Negative (Neg-Trace)
[2024-04-22 01:21] LABS: Bacteria Urine None Seen (None Seen); Hyaline Casts Urine 0-2 /LPF (0-2); RBC Urine 0-2 /HPF (0-2); Squamous Epithelial Cell Urine 0-2 /HPF (0-2); UACC Culture Trigger YES; WBC Urine 0-5 /HPF (0-5)
[2024-04-22 01:28] VITALS: BP 142/100; PULSE 59; RESP 16; TEMP 36.3; O2SAT 98
== END 2024-04-22 01:41 | disposition home or self-care (01) ==
PROVIDERS: Physician Assistant; Emergency Provider Emergency Medicine Emergency Medical Services; PCP Internal Medicine
DX: K52.9 Noninfective gastroenteritis and colitis, unspecified (principal); R10.30 Lower abdominal pain, unspecified; F17.210 Nicotine dependence, cigarettes, uncomplicated; F12.90 Cannabis use, unspecified, uncomplicated
CPT/HCPCS: 36415; 74177; 80053; 81001; 81003; 83690; 84484; 85025; 85610; 85730; 87086; 87088; 87186; 93005; 96361; 96374; 96375; 99284; J2405; Q9967

== ENCOUNTER → 2024-04-21 17:11 | Outpatient (BNV) | payer MEDICARE, MEDICAID, SELFPAY | PROVIDERS: Emergency Provider Emergency Medicine Emergency Medical Services; PCP Internal Medicine; Visit Provider Internal Medicine Cardiovascular Disease | DX: R10.9 Unspecified abdominal pain (principal) | CPT/HCPCS: 93010 ==

== ENCOUNTER → 2024-04-21 21:41 | Outpatient (BNV) | payer MEDICARE, MEDICAID, SELFPAY | PROVIDERS: Emergency Provider Emergency Medicine Emergency Medical Services; PCP Internal Medicine; Visit Provider Radiology Diagnostic Radiology | DX: R10.9 Unspecified abdominal pain (principal); R11.10 Vomiting, unspecified | CPT/HCPCS: 74177 ==

== ENCOUNTER 2024-05-18 09:40 | Outpatient (AMB) | payer MEDICARE, MEDICAID, SELFPAY ==
[2024-05-18 09:56] VITALS: BP 120/78; PULSE 78; O2SAT 97; BMI 32.1
--- NOTE | 2024-05-18 09:56 | MHC.PC.OV ---
Vital Signs 05/18/24 09:56 Height 5 ft 7 in Weight 205 lb 4 oz BMI 32.1 BP 120/78 Blood Pressure Location Lt brachial Position Sitting Pulse 78 Pulse Source Pulse Oximeter Pulse Oximetry (%) 97 Oxygen Delivery Method Room Air Intake Visit Reasons: hyperlipidemia, OA Hairspring Adjuster Required: No Accompanied by: Self / Same As Patient Allergies adhesive tape [TAPE,ADHESIVE] Allergy (Severe, Verified 05/18/24 10:43) ANAPHYLAXIS diphenhydramine [From BENADRYL] Allergy (Severe, Verified 05/18/24 10:43) ANAPHYLAXIS erythromycin base [ERYTHROMYCIN BASE] Allergy (Severe, Verified 05/18/24 10:43) ANAPHYLAXIS latex [LATEX] Allergy (Severe, Verified 05/18/24 10:43) ANAPHYLAXIS levofloxacin [From LEVAQUIN] Allergy (Severe, Verified 05/18/24 10:43) ANAPHYLAXIS meperidine [From DEMEROL] Allergy (Severe, Verified 05/18/24 10:43) ANAPHYLAXIS morphine [MORPHINE] Allergy (Unknown, Verified 05/18/24 10:43) UNKNOWN RED DYE IN TYLOX Allergy (Unknown, Uncoded 05/18/24 10:43) Unknown pollen Allergy (Uncoded 05/18/24 10:43) Sneezing Medication List - Last Reconciled 05/18/24 by Ronni Kingsley MD albuterol sulfate 90 mcg/actuation (Ventolin HFA) 2 puffs inhalation Q6H PRN atorvastatin 40 mg PO DAILY 90 days calcium carbonate-vitamin D3 600 mg-10 mcg (400 unit) (Calcium 600 + D(3)) 1 tab PO BID 30 days diclofenac sodium 1% 2 - 3 grams topical TID dicyclomine 20 mg (2 x 10 mg) PO BID famotidine 40 mg PO BEDTIME PRN gabapentin 800 mg PO TID uuoddujr-geo-mzso-FA-vit K-lut 8 mg iron-400 mcg-50 mcg (Centrum Silver Women) 1 tab PO DAILY ondansetron 4 mg PO Q8H PRN pantoprazole DR 40 mg PO DAILY sucralfate 1 g PO QID Tobacco use date assessed: 05/18/24 Fall risk assessment: 2 + Falls in past year Last assessed Fall Risk: 05/18/24 Dental Screening Dental Screen Date: 05/18/24 Did you have a dental visit in the last 12 months?: Yes Did you have a dental problem in the last 6 months where you did not have access to dental care?: No Was dental information given to patient?: Patient has dentist HPI hyperlipidemia, OA HPI Details Patient comes in today for her follow up visit States that she went to the ER last month for increasing lower abdominal pain for about 5 days' duration that feels like it is radiating up into her chest area She had an upper endoscopy done back in early March 2024 that revealed the presence of an anastomotic ulceration and a gastrogastric fistula - she underwent balloon dilatation and clipping to close the fistula She was started on PPI and Carafate then and will have a repeat EGD done in 4-6 months to ensure resolution of the ulcers Labs done in the ER came back negative except for slightly elevated white blood cell count Abdominal and pelvic CT done revealed mild irregularity with mural thickening along the gastroenteric anastomosis in the left upper quadrant that suggest gastroenteritis. There is additional diffuse small bowel mural thickening with mucosal hyperemia throughout the left abdomen She was instructed to stay on a bland diet/BRAT diet and to gradually advance her diet as tolerated She was also started on ondansetron 4 mg PRN for symptomatic relief of her nausea/vomiting Patient states that she currently feels okay and that her GI symptoms from last month have improved significantly She presently denies any headaches or dizziness Denies any chest pains, no increased shortness of breath No nausea/vomiting, still has on and off abdominal discomfort but she denies any increased abdominal pain recently No change in bowel habits noted Patient needs a couple of her Rx refilled She was not able to get her follow-up labs done prior to her appointment today [facility] Medical History Smoker Osteoarthritis of carpometacarpal joint of left thumb Inflammatory arthropathy Screening examination for infectious disease Pain in joint, multiple sites Arthritis, multiple joint involvement Migraine Epidermal cyst Obesity (BMI 30-39.9) Derangement of ankle, left Neuropathy Thoracic radiculopathy Superficial gastritis without hemorrhage Pure hypercholesterolemia Surgical History (Updated 05/25/24 @ 04:29 by Ronni Kingsley MD) Hx of toe surgery Hx of colonoscopy History of esophagogastroduodenoscopy (EGD) History of surgery History of oral surgery History of eye surgery H/O gastric bypass History of foot surgery History of elbow surgery History of cholecystectomy History of tonsillectomy Family History Mother Diabetes mellitus Arthritis Father Cardiovascular disease Brother Asbestosis Mesothelioma Arthritis Sister Mental health problem Arthritis Cancer Other Substance abuse Social History Household Members: Family and Children Housing: House Are you a primary care companion to a significant other at home: No Do you presently have visiting nurse or other home services: No Alcohol intake: current Alcohol intake frequency: holidays/special occasions only Alcohol type: wine Patient Tobacco Use Status: Current everyday Tobacco user Tobacco use type: Cigarette Cigarettes Per Day: 5 Years Smoked: 54 e-Cigarette/Vaping Use: Never Used Second Hand Smoke Exposure: Yes Substance Use Type: Marijuana service: No Current occupational status: disabled Cognitive needs: Yes (cane) Hearing needs: No Vision needs: Yes Questionnaire PHQ-9 Over the last 2 weeks, how often have you been bothered by any of the following problems? 1. Little interest or pleasure in doing things: nearly every day 2. Feeling down, depressed, or hopeless: nearly every day 3. Trouble falling or staying asleep, or sleeping too much: nearly every day 4. Feeling tired or having little energy: nearly every day 5. Poor appetite or overeating: nearly every day 6. Feeling bad about yourself - or that you are a failure or have let yourself or your family down: not at all 7. Trouble concentrating on things, such as reading the newspaper or watching television: nearly every day 8. Moving or speaking so slowly that other people could have noticed. Or the opposite - being so fidgety or restless that you have been moving around a lot more than usual: not at all 9. Thoughts that you would be better off or of hurting yourself in some way: not at all Total score: 18 Depression Screening Interpretation: Positive Depression Screening Follow-up: Existing condition and In treatment Depression Screening Done: Yes 18334 - PHQ-9 Billing: Yes Source: Developed by Drs. Lan Brar, Ava Grey, Brennen Marte and colleagues, with an educational alex from [employer]. Thrive Questionnaire Date Thrive assessed: 05/18/24 I am a: Patient What is your living situation today?: I have a steady place to live Within the past 12 months, did the food you bought not last and you didn't have the money to get more?: Never true Within the past 12 months, did you worry whether your food would run out before you got money to buy more?: Never true Do you have trouble paying for medicines?: No Do you have trouble getting transportation to medical appointments?: No Do you have trouble paying your heating and electricity bill?: No Do you have trouble taking care of your child, family member or friend?: No Do you have trouble with day-to-day activities such as bathing, preparing meals, shopping, managing finances, etc.?: No Are you currently unemployed and looking for a job?: No Are you interested in more education?: No Please select the resources that you would like help with: None Currently or been in a relationship where the following occur: No concerns reported THRIVE Score: 0 AUDIT C Alcohol Use Questionnaire (AUDIT-C) 1. How often do you have a drink containing alcohol?: Monthly or less 2. How many drinks containing alcohol do you have on a typical day when you are drinking?: 1 or 2 3. How often do you have six or more drinks on one occasion?: Never Total Score: 1 Score Reviewed/Action Taken: Yes MELANIE-7 AMB Questionnaire MELANIE-7 Date MELANIE - 7 assessed: 05/18/24 Feeling nervous, anxious, or on edge: 0 = Not at all Not being able to stop or control worryin = Not at all Worrying too much about different things: 0 = Not at all Trouble relaxin = Not at all Being so restless that it is hard to sit still: 0 = Not at all Becoming easily annoyed or irritable: 0 = Not at all Feeling afraid as if something awful might happen: 0 = Not at all Total MELANIE-7 score (0-4 normal; 5-9 mild; 10-14 moderate; 15-21 severe): 0 Source: Developed by Drs. Lan Brar, Ava Grey, Brennen Marte and colleagues, with an educational alex from [employer]. Review of Systems Const Denies chills, Reports fatigue, Denies fever(s) and Denies headache(s) ENT Denies dysphagia, Denies dizziness, Denies otalgia, Denies headache(s), Denies neck pain, Denies odynophagia and Denies sore throat Card Denies chest pain, Denies palpitations and Denies dyspnea Resp Denies chest congestion, Denies cough and Denies dyspnea GI Denies abdominal pain, Reports constipation (symptoms improved with Movantik), Denies dysphagia, Denies heartburn, Denies diarrhea, Denies nausea, Denies odynophagia and Denies vomiting Denies difficulty voiding, Denies nocturia, Denies dysuria and Denies urinary urgency Musc Reports back pain (chronic), Reports arthralgias (left ankle/foot - chronic; right shoulder, right hip), Denies joint swelling and Denies neck pain Skin/Breast Denies rash Neuro Denies dizziness and Denies headache(s) Endo Reports fatigue and Denies palpitations Physical exam (Primary Care) Vital Signs: Last Vital Signs Pulse 78 05/18/24 09:56 BP 120/78 05/18/24 09:56 Pulse Ox 97 05/18/24 09:56 Oxygen Delivery Method Room Air 05/18/24 09:56 BMI result Body Mass Index 32.1 Tobacco/Smoking Status: Tobacco use Status Tobacco use date assessed 05/18/24 05/18/24 09:58 Patient Tobacco Use Status Current everyday Tobacco 05/18/24 09:58 Tobacco use type Cigarette 05/18/24 09:58 e-Cigarette/Vaping Use Never Used 05/18/24 09:58 PHQ-9: PHQ-9 Score PHQ-9: Total score 18 05/18/24 10:47 Depression Screening Interpretation: Positive Depression Screening Follow-up: Existing condition and In treatment Thrive Assessment: Date of Thrive Assessment Date Thrive assessed 05/18/24 05/18/24 10:01 Currently or been in a relationship where the following occur: No concerns reported Const General: no acute distress and alert HENMT Ears: TM's normal bilaterally and EAC's normal Throat: Yes posterior oropharynx normal and Yes tonsils normal (no TP congestion noted) Neck Neck: Yes no lymphadenopathy and Yes supple Thyroid: Thyroid normal Resp Auscultation: clear to auscultation bilaterally, no rales and no wheezes Cardio Rate: regular rate Rhythm: regular rhythm Heart sounds: no murmurs GI Palpation (GI): Soft to palpation and nontender Auscultation: normal bowel sounds Back/Spine/Pelvis Thoracic/Lumbar Spine: lumbar spinal tenderness Skin Rashes: no rashes Extrem General: Yes no clubbing, cyanosis or edema Right upper extremity: shoulder/upper arm Details: tenderness Location: of the A-C joint Right lower extremity: hip/thigh Details: tenderness Location: of the hip Left lower extremity: ankle Coding Level of Care Code Est Pt Level 4 (08347) Diagnoses Pure hypercholesterolemia E78.00 Superficial gastritis without hemorrhage, unspecified chronicity K29.30 Chronicity: unspecified Thoracic radiculopathy M54.14 Arthritis, multiple joint involvement M12.9 Derangement of ankle, left M24.9 Smoker F17.200 Obesity (BMI 30-39.9) E66.9 Additional Codes PHQ-9 - 78203 - PHQ-9 Billing: Yes ([id number]) Assessment & Plan Assessment & Plan (1) Pure hypercholesterolemia: Code(s): E78.00 - Pure hypercholesterolemia, unspecified Category: Medical Plan: Patient was not able to get her follow-up labs done prior to her appointment today Reinforced low cholesterol diet Continue Atorvastatin 40 mg QD Will recheck her labs and fasting lipids in 4 months for follow up - will just have patient use her current orders (updated) for her next lab draw (2) Superficial gastritis without hemorrhage: Code(s): K29.30 - Chronic superficial gastritis without bleeding Category: Medical Qualifiers: Chronicity: unspecified Qualified Code(s): K29.30 - Chronic superficial gastritis without bleeding Plan: EGD with biopsies done in March 2019 showed (+) acute ulcers at the small bowel anastomotic site; gastric mucosa showed (+) erythema but biopsy was negative; it was also negative for H pylori Repeat EGD done in November 2019 shows mild gastric erythema and a grade 3 ulcer on the Keysha limb of the jejunum about 15 to 20 mm in diameter; biopsies were taken from these 2 sites and they came back negative for dysplasia or malignancy Follow up EGD in 2020 revealed similar findings Upper endoscopy done again on 04/02/2024 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 She underwent balloon dilatation and clipping of the gastrogastric fistula Continue Omeprazole 40 mg BID, Famotidine 40 mg Q HS and Sucralfate 1 gm TID with meals and at bedtime Follow-up with GI as scheduled - plan is to have patient undergo repeat EGD in 4-6 months to ensure resolution of the anastomotic ulcers (3) Thoracic radiculopathy: Code(s): M54.14 - Radiculopathy, thoracic region Category: Medical Plan: Follow up with pain management as scheduled (4) Arthritis, multiple joint involvement: Code(s): M12.9 - Arthropathy, unspecified Category: Medical Plan: Follow up with rheumatology as scheduled - she is now seeing [facility] of going to [facility] that rheumatology initially suspected that she may have psoriatic arthritis but as of her last visit, was advised that she most likely just had degenerative OA Her serum inflammatory markers on her recent labs have all come back normal (5) Derangement of ankle, left: Code(s): M24.9 - Joint derangement, unspecified Category: Medical Plan: (+) Hx of fracture of the left ankle, S/P surgical repair, with consequent chronic arthropathy of the ankle Continue Gabapentin 800 mg TID (6) Smoker: Code(s): F17.200 - Nicotine dependence, unspecified, uncomplicated Category: Social Hx Plan: Patient is counseled again to continue working on complete smoking cessation (7) Obesity (BMI 30-39.9): Comment: S/P gastric bypass in 2014 Code(s): E66.9 - Obesity, unspecified Category: Medical Plan: Reinforced diet; exercise and weight loss are unrealistic currently given patient's multiple physical issues Plan Follow up in 4 months Medications: Refilled ondansetron 4 mg PO Q8H PRN 30 tabs 3RF nausea and vomiting gabapentin 800 mg PO TID 270 tabs 1RF G62.9 - Polyneuropathy, unspecified, M24.9 - Joint derangement, unspecified
--- OUTSIDE RECORDS SUMMARY | 2024-05-18 10:23 | XMS_ITS | Clinical Summary ---
Author Organization [facility] Address [address] [place] [address] Care Team Providers Care Knuckle Strap Sewer Name Role Phone Sonya Pollack MD Primary Care Provider [phone] Surgical History Surgery Date Site/Laterality Comments OTHER SURGICAL HISTORY PROCEDURE: DC LAPS TX ECTOPIC PREG W/O SALPING&/OOPHORECTOMY OTHER SURGICAL HISTORY PROCEDURE: ---- OTHER ----; COMMENT: Several foot surgeries for fractured left foot GASTRIC BYPASS PROCEDURE: DC GASTRIC RSTCV W/BYP W/SM INT RCNSTJ LIMIT ABSRPJ CHOLECYSTECTOMY PROCEDURE: LAPAROSCOPY, CHOLECYSTECTOMY SECTION PROCEDURE: DC DELIVERY ONLY OTHER SURGICAL HISTORY 1978 PROCEDURE: DC CONIZATION CERVIX W/WO D&C RPR KNIFE/LASER; COMMENT: For cervical cancer Medical History Medical History Date Comments CHRISSY (obstructive sleep apnea) DX :CHRISSY (obstructive sleep apnea); COMMENT: Non complaint with CPAP Cataract DX:Cataract Glaucoma DX:Glaucoma Cervical cancer (CMS/HCC) DX:Cer vical cancer (HCC); COMMENT: Stage II, localized, s/p radiation and surgery. Abnormal mammogram of left breast DX:Abnormal mammogram of left breast; COMMENT: s/p biopsy non malignant H/O gastric bypass DX:H/O gastri c bypass Hypertension DX:Hypertension Tobacco abuse DX:Tobacco abuse PUD (peptic ulcer disease) DX:PU D (peptic ulcer disease); COMMENT: Non healing petic ulcers at site of gastric bypass anastomosis. On PPI, sucralfate, dicyclomine and advised for cessation of smoking. Follows with GI, last EGD from 01/17/[address] 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 Diggs and neurology Dr Tovar Family History Medical History Relation Name Comments Lung cancer Brother 1 Other: CAD, [place] Father Other: Pancreatic cancer Mother Relation Name Status Comments Brother 1 Brother 2 Father Mother Social History Tobacco Use Types Packs/Day Years Used Date Smoking Tobacco: Some Days Cigarettes Alcohol Use Standard Drinks/Week Comments No 0 (1 standard drink = 0.6 oz pur e alcohol) Comments Unknown Sex and Gender Information Value Date Recorded Sex Assigned at Not on file Legal Sex Female 5:16 AM EST Gender Identity Not on file Sexual Orientation Not on file Obstetrics History Plan of Treatment Health Maintenance Due Date Last Done Comments Breast Cancer Screening 1960 DTaP,Tdap,and Td Vaccines (1 - Tdap) 01/17/1967 Pneumococcal Vaccine: 50+ Ye ars (1 of 2 - PCV) 01/17/1979 Pneumococcal Vaccine: Pediat rics (0 to 5 Years) and At-Risk Patients (6 to 64 Years) (1 of 2 - PCV) 01/17/1979 Cervical Cancer Screening: P ap Smear 01/17/1981 Zoster Vaccines (1 of 2) 01/17/2010 Colorectal Cancer Screening: Colonoscopy 05/07/2023 Depression Screening 05/07/2023 HIV Screening 05/07/2023 Hepatitis C Screening 05/07/2023 Social Influencers of Health Screening 05/07/2023 COVID-19 Vaccine ( - 2023-2 5 season) 2023 Influenza Vaccine (#1) 2023 RSV Immunization Patients 60 + Years Old (1 - 1-dose 75+ series) 01/17/2035 HIB Vaccines Aged Out No longer eligi ble based on patient's age to complete this topic HPV Vaccines Aged Out No longer eligi ble based on patient's age to complete this topic Hepatitis A Vaccines Aged Out No long er eligible based on patient's age to complete this topic Hepatitis B Vaccines Aged Out No long er eligible based on patient's age to complete this topic IPV Vaccines Aged Out No longer eligi ble based on patient's age to complete this topic MMR Vaccines Aged Out No longer eligi ble based on patient's age to complete this topic Meningococcal ACWY Vaccine Aged Out N o longer eligible based on patient's age to complete this topic Meningococcal B Vacine Aged Out No lo nger eligible based on patient's age to complete this topic RSV Immunization Patients Un nilsa 20 months Aged Out No longer eligible b ased on patient's age to complete this topic Varicella Vaccines Aged Out No longer eligible based on patient's age to complete this topic Care Teams Knuckle Strap Sewer Relationship Specialty Start Date End Date Sonya Pollack MD PCP - General Internal Medicine 03/22/16
== END 2024-05-18 11:03 | disposition home or self-care (01) ==
PROVIDERS: PCP Internal Medicine; Visit Provider Internal Medicine
DX: E78.00 Pure hypercholesterolemia, unspecified (principal); E66.9 Obesity, unspecified; Z68.32 Body mass index [BMI] 32.0-32.9, adult; K29.30 Chronic superficial gastritis without bleeding; F17.200 Nicotine dependence, unspecified, uncomplicated; M54.14 Radiculopathy, thoracic region; M12.9 Arthropathy, unspecified; M24.9 Joint derangement, unspecified

== ENCOUNTER → 2024-05-18 09:40 | Outpatient (BNVA) | payer MEDICARE, MEDICAID, SELFPAY | PROVIDERS: PCP Internal Medicine; Visit Provider Internal Medicine | DX: E78.00 Pure hypercholesterolemia, unspecified (principal); K29.30 Chronic superficial gastritis without bleeding; M54.14 Radiculopathy, thoracic region; M12.9 Arthropathy, unspecified; M24.9 Joint derangement, unspecified; E66.9 Obesity, unspecified; F17.200 Nicotine dependence, unspecified, uncomplicated; Z71.6 Tobacco abuse counseling | CPT/HCPCS: 96127; 99212 ==

== ENCOUNTER 2024-06-17 08:57 | Day surgery (SDC) | payer MEDICARE, MEDICAID, SELFPAY ==
--- OUTSIDE RECORDS SUMMARY | 2024-06-05 12:21 | XMS_ITS | Clinical Summary ---
Author Organization [facility] Address [address] [place] [address] Care Team Providers Care Ag Equipment Field Service Technician Name Role Phone Sonya Pollack MD Primary Care Provider [phone] Surgical History Surgery Date Site/Laterality Comments OTHER SURGICAL HISTORY PROCEDURE: MD LAPS TX ECTOPIC PREG W/O SALPING&/OOPHORECTOMY OTHER SURGICAL HISTORY PROCEDURE: ---- OTHER ----; COMMENT: Several foot surgeries for fractured left foot GASTRIC BYPASS PROCEDURE: MD GASTRIC RSTCV W/BYP W/SM INT RCNSTJ LIMIT ABSRPJ CHOLECYSTECTOMY PROCEDURE: LAPAROSCOPY, CHOLECYSTECTOMY SECTION PROCEDURE: MD DELIVERY ONLY OTHER SURGICAL HISTORY 1978 PROCEDURE: MD CONIZATION CERVIX W/WO D&C RPR KNIFE/LASER; COMMENT: [...] Comments Lung cancer Brother 1 Other: CAD, CT Father Other: Pancreatic cancer Mother Relation Name [...] 1960 DTaP,Tdap,and Td Vaccines (1 - Tdap) 01/17/1979 Pneumococcal Vaccine: 50+ Ye ars (1 of [...] age to complete this topic Care Teams Ag Equipment Field Service Technician Relationship Specialty Start Date End Date Sonya Pollack MD PCP - General Internal Medicine 03/22/16
--- NOTE | 2024-06-16 09:30 | HO.ANESPROP2 ---
Documented by User: Aliya Escamilla NP 06/16/24 09:34 HPI - Anesthesia Eval Consult details Narrative: 64yo F for Upper Endoscopy with fistula closure s/p EGD 03/2024 with [facility] Active Problems Active Problems: All Active Problems Generalized osteoarthritis (Acute) Osteoarthritis of right thumb (Acute) Smoker (Acute) Medicare annual wellness visit, initial (Acute) Osteoarthritis of carpometacarpal joint of left thumb (Acute) Inflammatory arthropathy (Acute) Screening examination for infectious disease (Acute) Callus between toes (Acute) Preoperative examination (Acute) Pain in joint, multiple sites (Acute) Arthritis, multiple joint involvement (Acute) Abscess of left ear canal (Acute) Migraine (Acute) Allergy to alpha-gal (Acute) Polyarthralgia (Acute) Sprain of left knee (Acute) Constipation (Acute) Screening-pulmonary TB (Acute) Pre-op evaluation (Acute) Foot fracture, left (Acute) Stomach ulcer (Acute) LLQ abdominal pain (Acute) Status post gastric bypass for obesity (Acute) Abdominal pain, acute, epigastric (Acute) Cutaneous abscess of axilla (Acute) Cutaneous abscess of chest wall (Acute) Epidermal inclusion cyst (Acute) Epidermal cyst (Acute) Obesity (BMI 30-39.9) (Acute) Derangement of ankle, left (Acute) Neuropathy (Acute) Thoracic radiculopathy (Acute) Superficial gastritis without hemorrhage (Acute) Pure hypercholesterolemia (Acute) Past Medical History Medical History Smoker Osteoarthritis of carpometacarpal joint of left thumb Inflammatory arthropathy Screening examination for infectious disease Pain in joint, multiple sites Arthritis, multiple joint involvement Migraine Epidermal cyst Obesity (BMI 30-39.9) Derangement of ankle, left Neuropathy Thoracic radiculopathy Superficial gastritis without hemorrhage Pure hypercholesterolemia Family History Family History Mother Diabetes mellitus Arthritis Father Cardiovascular disease Brother Asbestosis Mesothelioma Arthritis Sister Mental health problem Arthritis Cancer Other Substance abuse Family history of problems with anesthesia: No Surgical History Surgical History (Updated 05/25/24 @ 04:29 by Ronni Kingsley MD) Hx of toe surgery Hx of colonoscopy History of esophagogastroduodenoscopy (EGD) History of surgery History of oral surgery History of eye surgery H/O gastric bypass History of foot surgery History of elbow surgery History of cholecystectomy History of tonsillectomy History of Problems with Anesthesia: No Social History Social History Household Members: Family and Children Housing: House Are you a primary nurse wound care to a significant other at home: No Do you presently have visiting nurse or other home services: No Alcohol intake: current Alcohol intake frequency: holidays/special occasions only Alcohol type: wine Patient Tobacco Use Status: Current someday Tobacco user Tobacco use type: Cigarette Cigarettes Per Day: 10 Years Smoked: 54 e-Cigarette/Vaping Use: Never Used Second Hand Smoke Exposure: Yes Use of substances other than those prescribed or required for medical reasons: No Substance Use Type: Marijuana Have you been hit, kicked, punched, or otherwise hurt by someone within the past year? If so, by whom?: No Are you DNR?: No Advance Directives: No Advance Directives Information Provided: Yes Recently lost weight without trying: No service: No Current occupational status: disabled Cognitive needs: Yes (cane) Hearing needs: No Vision needs: Yes Meds Allergies Allergy/AdvReac Type Severity Reaction Status Date / Time adhesive tape [TAPE,ADHESIVE] Allergy Severe ANAPHYLAXIS Verified 05/18/24 10:43 diphenhydramine Allergy Severe ANAPHYLAXIS Verified 05/18/24 10:43 [From BENADRYL] erythromycin base Allergy Severe ANAPHYLAXIS Verified 05/18/24 10:43 [ERYTHROMYCIN BASE] latex [LATEX] Allergy Severe ANAPHYLAXIS Verified 05/18/24 10:43 levofloxacin [From LEVAQUIN] Allergy Severe ANAPHYLAXIS Verified 05/18/24 10:43 meperidine [From DEMEROL] Allergy Severe ANAPHYLAXIS Verified 05/18/24 10:43 morphine [MORPHINE] Allergy Unknown UNKNOWN Verified 05/18/24 10:43 RED DYE IN TYLOX Allergy Unknown Unknown Uncoded 05/18/24 10:43 pollen Allergy Sneezing Uncoded 05/18/24 10:43 Home Medications ?Medication ?Instructions ?Recorded ?Confirmed ?Last Taken ?Type nraymaff-mmmd-xiot 8 mg-folic 400 1 tab PO DAILY 03/22/20 05/18/24 Unknown History mcg-K 50 mcg-lutein 300 mcg tablet (Centrum Silver Women) diclofenac sodium 1 % topical gel 2 - 3 g topical TID 10/08/22 05/18/24 Unknown History Exam Pertinent Lab Results Pertinent Lab Results: Laboratory Tests 04/21/24 17:54 WBC 12.5 H Hgb 15.1 Hct 44.7 Plt Count 286 Sodium 138 Potassium 5.1 D Chloride 105 Carbon Dioxide 27 BUN 5 L Creatinine 0.78 Narrative Narrative: EKG 04/2024 Vent. Rate : 67 BPM Atrial Rate : 67 BPM P-R Int : 156 ms QRS Dur : 84 ms QT Int : 404 ms P-R-T Axes : 78 16 61 degrees QTcB Int : 426 ms Normal sinus rhythm Normal ECG When compared with ECG of 28-May-2023 13:34, No significant change was found Assessment and Plan Assessment Anesthesia Assessment: Chart Reviewed Final Anesthetic Review Family History of Problems with Anesthesia: No History of Problems with Anesthesia: No Documented by User: Salud Guillory MD 06/17/24 10:57 PMFSH Past Medical History Medical History Smoker Osteoarthritis of carpometacarpal joint of left thumb Inflammatory arthropathy Screening examination for infectious disease Pain in joint, multiple sites Arthritis, multiple joint involvement Migraine Epidermal cyst Obesity (BMI 30-39.9) Derangement of ankle, left Neuropathy Thoracic radiculopathy Superficial gastritis without hemorrhage Pure hypercholesterolemia Family History Family History Mother Diabetes mellitus Arthritis Father Cardiovascular disease Brother Asbestosis Mesothelioma Arthritis Sister Mental health problem Arthritis Cancer Other Substance abuse Surgical History Surgical History (Updated 05/25/24 @ 04:29 by Ronni Kinsgley MD) Hx of toe surgery Hx of colonoscopy History of esophagogastroduodenoscopy (EGD) History of surgery History of oral surgery History of eye surgery H/O gastric bypass History of foot surgery History of elbow surgery History of cholecystectomy History of tonsillectomy Social History Social History Household Members: Family and Children Housing: House Are you a primary nurse wound care to a significant other at home: No Do you presently have visiting nurse or other home services: No Alcohol intake: current Alcohol intake frequency: holidays/special occasions only Alcohol type: wine Patient Tobacco Use Status: Current someday Tobacco user Tobacco use type: Cigarette Cigarettes Per Day: 10 Years Smoked: 54 e-Cigarette/Vaping Use: Never Used Second Hand Smoke Exposure: Yes Use of substances other than those prescribed or required for medical reasons: No Substance Use Type: Marijuana Have you been hit, kicked, punched, or otherwise hurt by someone within the past year? If so, by whom?: No Are you DNR?: No Advance Directives: No Advance Directives Information Provided: Yes Recently lost weight without trying: No service: No Current occupational status: disabled Cognitive needs: Yes (cane) Hearing needs: No Vision needs: Yes Meds Allergies Allergy/AdvReac Type Severity Reaction Status Date / Time adhesive tape [TAPE,ADHESIVE] Allergy Severe ANAPHYLAXIS Verified 05/18/24 10:43 diphenhydramine Allergy Severe ANAPHYLAXIS Verified 05/18/24 10:43 [From BENADRYL] erythromycin base Allergy Severe ANAPHYLAXIS Verified 05/18/24 10:43 [ERYTHROMYCIN BASE] latex [LATEX] Allergy Severe ANAPHYLAXIS Verified 05/18/24 10:43 levofloxacin [From LEVAQUIN] Allergy Severe ANAPHYLAXIS Verified 05/18/24 10:43 meperidine [From DEMEROL] Allergy Severe ANAPHYLAXIS Verified 05/18/24 10:43 morphine [MORPHINE] Allergy Unknown UNKNOWN Verified 05/18/24 10:43 RED DYE IN TYLOX Allergy Unknown Unknown Uncoded 05/18/24 10:43 pollen Allergy Sneezing Uncoded 05/18/24 10:43 Home Medications ?Medication ?Instructions ?Recorded ?Confirmed ?Last Taken ?Type ocguxpvo-ijxg-wocf 8 mg-folic 400 1 tab PO DAILY 03/22/20 05/18/24 Unknown History mcg-K 50 mcg-lutein 300 mcg tablet (Centrum Silver Women) diclofenac sodium 1 % topical gel 2 - 3 g topical TID 10/08/22 05/18/24 Unknown History Exam Airway Mallampati Class: II (missing some top and bottom) TM Dist: >3cm Neck ROM: Full Heart: rrr Lungs: cta Assessment and Plan Assessment Anesthesia Assessment: Anesthesia Plan Discussed Final Anesthetic Review NPO: Yes ASA Class: III Final Preanesthetic Review: No Changes in Pt Med Stat, Meds/Allgs Chart Reviewed and Consent Obtained/Reviewed Patient Risk: Intermediate Procedure Risk: Intermediate Anesthetic Plan Anesthetic Plan: MAC: Disposition: Standard PACU
[2024-06-17 10:23] VITALS: BP 126/87; PULSE 89; RESP 16; TEMP 36.8; O2SAT 96; BMI 31.9
[2024-06-17] MEDS: Lactated Ringers 1,000 ML 100 ML IVCONT (10:29)
--- NOTE | 2024-06-17 11:08 | MHC.SHP ---
Pre-Procedural Eval Section A - 24 Hr Update-Section A only Date of Service: 06/17/24 Section B - Complete if H&P > 30 days Chief Complaint: Gastric ulcer, unspecified as acute or chronic, wi Details of Present Illness: hx of fistula EGD to assess for closure Relevant Family History (Specify if Yes): No Relevant Social History: Tobacco Use Present Medications: see Short Stay Collaborative assessment Medical History: Significant History ( Smoker Osteoarthritis of carpometacarpal joint of left thumb Inflammatory arthropathy Screening examination for infectious disease Pain in joint, multiple sites Arthritis, multiple joint involvement Migraine Epidermal cyst Obesity (BMI 30-39.9) Derangement of ankle, left Neuropathy Thoracic radicul) History of Previous Operations: Relevant previous surgery/procedure and date(s) (Hx of toe surgery Hx of colonoscopy History of esophagogastroduodenoscopy (EGD) History of surgery History of oral surgery History of eye surgery H/O gastric bypass History of foot surgery History of elbow surgery History of cholecystectomy History of tonsillectomy) Allergies: Allergies Allergy/AdvReac Type Severity Reaction Status Date / Time adhesive tape [TAPE,ADHESIVE] Allergy Severe ANAPHYLAXIS Verified 05/18/24 10:43 diphenhydramine Allergy Severe ANAPHYLAXIS Verified 05/18/24 10:43 [From BENADRYL] erythromycin base Allergy Severe ANAPHYLAXIS Verified 05/18/24 10:43 [ERYTHROMYCIN BASE] latex [LATEX] Allergy Severe ANAPHYLAXIS Verified 05/18/24 10:43 levofloxacin [From LEVAQUIN] Allergy Severe ANAPHYLAXIS Verified 05/18/24 10:43 meperidine [From DEMEROL] Allergy Severe ANAPHYLAXIS Verified 05/18/24 10:43 morphine [MORPHINE] Allergy Unknown UNKNOWN Verified 05/18/24 10:43 RED DYE IN TYLOX Allergy Unknown Unknown Uncoded 05/18/24 10:43 pollen Allergy Sneezing Uncoded 05/18/24 10:43 Review of Systems Sugical H&P ROS: Negative: Constitution, Cardiovascular, Respiratory, Neurological, Psychiatric, Hem-Onc, Allergic/Immunologic, Gastrointestinal, Genitourinary, Musculoskeletal, Integumentary, Endocrine and Eyes/Ears/Nose/Throat Exam Surgical H&P Exam: Normal: HEENT, Normal: Heart, Normal: Lungs, Normal: Extremities, Normal: Abdomen, Normal: Skin and Normal: Neurological Plan Diagnosis/Plan: Unchanged I have reviewed the history and physical and performed a pertinent physical examination on my patient. No changes have occurred unless specified. Time Spent With Patient Time: Total time managing care of this patient today ____ minutes.
--- NOTE | 2024-06-17 11:32 | W.PM.OPN ---
Operative Note Operative Note Date of Service: 06/17/24 Narrative: Procedure Description: EGD Indication: hx of fistula Anesthesia: MAC FLEXIBLE TRANSORAL UPPER GASTROINTESTINAL ENDOSCOPY UPPER ENDOSCOPY Consent: Indications for the procedure and potential complications of bleeding, perforation, reaction to medications and missed diagnosis were discussed with the patient and informed consent was obtained. Instrument: Olympus GIF H 190 J mid size upper endoscope Monitoring: Vital signs and clinical assessment, continuous EKG monitoring, Pulse oximetry, Carbon Dioxide monitoring and blood pressure monitoring were done throughout the procedure. Procedure: The patient was placed in the left lateral decubitis position and pre-procedure medications were administered and a bite block was placed. The endoscope was inserted into the mouth and advanced under direct vision to the third part of duodenum. A careful inspection was made as the upper endoscope was withdrawn including a retroflexed examination of the proximal stomach; Findings and interventions are described below. Findings: Larynx:normal Esophagus: GE junction at 37 cm, diaphragm hiatus at 37 cm, small inlet patch noted otherwise normal Stomach pouch: superficial ulceration noted at anastomosis x 1 measuring about 8 mm with surrounding edema and bogginess. There was a clip noted where the fistula was seen from the last EGD but the fistula looks like it has closed . Grade 2 flap valve on retroflexed examination of the cardia. A staple was noted adjacent to the ulcer and was removed with biopsy forceps jejunum: brittany limb looked normal. Intervention: removal of staple Impression/Findings: anastomotic ulceration esophageal inlet patch PLAN: cont with PPI and carafate, avoid smoking GERD precautions repeat EGD in 4-6 months, if fistula still open then try OTS clip or mantis clip
[2024-06-17 11:36] VITALS: BP 106/62; PULSE 76; RESP 16; TEMP 36.1; O2SAT 97
[2024-06-17 11:56] VITALS: BP 118/63; PULSE 84; RESP 20; TEMP 36.1; O2SAT 97
== END 2024-06-17 12:12 | disposition home or self-care (01) ==
PROVIDERS: PCP Internal Medicine; Visit Provider Internal Medicine Gastroenterology
PROC: 0DJ08ZZ Inspection of Upper Intestinal Tract, Via Natural or Artificial Opening Endoscopic (ICD-10-PCS; CPT 43235; principal; 2024-06-17 11:30)
DX: K28.9 Gastrojejunal ulcer, unspecified as acute or chronic, without hemorrhage or perforation (principal); Z87.731 Personal history of (corrected) tracheoesophageal fistula or atresia; Q39.8 Other congenital malformations of esophagus; K44.9 Diaphragmatic hernia without obstruction or gangrene; M15.9 Polyosteoarthritis, unspecified; E66.9 Obesity, unspecified; Z79.899 Other long term (current) drug therapy; L23.1 Allergic contact dermatitis due to adhesives; Z91.040 Latex allergy status; Z88.1 Allergy status to other antibiotic agents; Z88.5 Allergy status to narcotic agent; Z98.890 Other specified postprocedural states; Z90.49 Acquired absence of other specified parts of digestive tract; Z98.84 Bariatric surgery status; F17.210 Nicotine dependence, cigarettes, uncomplicated
CPT/HCPCS: 43247; J2003; J2704

== ENCOUNTER → 2024-06-17 08:57 | Outpatient (BNV) | payer MEDICARE, MEDICAID, SELFPAY | PROVIDERS: PCP Internal Medicine; Visit Provider Internal Medicine Gastroenterology | DX: K28.9 Gastrojejunal ulcer, unspecified as acute or chronic, without hemorrhage or perforation (principal); K22.89 Other specified disease of esophagus | CPT/HCPCS: 43247 ==

== ENCOUNTER 2024-09-18 14:24 | Outpatient (AMB) | payer MEDICARE, MEDICAID, SELFPAY ==
[2024-09-18 14:26] VITALS: BP 138/82; PULSE 88; O2SAT 96; BMI 31.5
--- NOTE | 2024-09-18 14:26 | MHC.OFFVIS ---
Vital Signs 09/18/24 14:26 Height 5 ft 8 in Weight 207 lb BMI 31.5 BP 138/82 Blood Pressure Location Lt brachial Position Sitting Pulse 88 Pulse Source Pulse Oximeter Pulse Oximetry (%) 96 Oxygen Delivery Method Room Air Intake Visit Reasons: OA/inj Intake Note: Patient last seen by Doctor Marcel Uriarte on 03/13/24. Presents for OA follow up. Patient complains of right shoulder pain. Allergies adhesive tape (TAPE,ADHESIVE) Allergy (Severe, Verified 09/18/24 14:30) ANAPHYLAXIS diphenhydramine (From BENADRYL) Allergy (Severe, Verified 09/18/24 14:30) ANAPHYLAXIS erythromycin base (ERYTHROMYCIN BASE) Allergy (Severe, Verified 09/18/24 14:30) ANAPHYLAXIS latex (LATEX) Allergy (Severe, Verified 09/18/24 14:30) ANAPHYLAXIS levofloxacin (From LEVAQUIN) Allergy (Severe, Verified 09/18/24 14:30) ANAPHYLAXIS meperidine (From DEMEROL) Allergy (Severe, Verified 09/18/24 14:30) ANAPHYLAXIS morphine (MORPHINE) Allergy (Unknown, Verified 09/18/24 14:30) UNKNOWN RED DYE IN TYLOX Allergy (Unknown, Uncoded 09/18/24 14:30) Unknown pollen Allergy (Uncoded 09/18/24 14:30) Sneezing Medication List - Last Reconciled 09/24/24 by Edith Seals MD albuterol sulfate 90 mcg/actuation (Ventolin HFA) 2 puffs inhalation Q6H PRN atorvastatin 40 mg PO DAILY 90 days calcium carbonate-vitamin D3 600 mg-10 mcg (400 unit) (Calcium 600 + D(3)) 1 tab PO BID 30 days diclofenac sodium 1% 2 - 3 grams topical TID dicyclomine 20 mg (2 x 10 mg) PO BID famotidine 40 mg PO BEDTIME PRN gabapentin 800 mg PO TID frrkcljy-jft-cyjc-FA-vit K-lut 8 mg iron-400 mcg-50 mcg (Centrum Silver Women) 1 tab PO DAILY ondansetron 4 mg PO Q8H PRN pantoprazole DR 40 mg PO DAILY sucralfate 1 g PO QID HPI Comments Details: Patient is a 64 y.o. female current everyday smoker with migraines, HLD, GERD, neuropathy and polyarticular OA here today for follow up Interval History: Patient last seen 03/[address] Uriarte. At that time she was following up for her OA. She was complaining of lower back pain that intermittently radiates down her right leg, bilateral shoulder pain requesting injections and improved thumbs after steroid injections. Today, She continues to have polyarticular joint pains Rheumatologic History: Polyarticular OA Current Rheumatology Medication(s): [facility] Medical History (Updated 06/22/24 @ 09:54 by Ronni Kingsley MD) Smoker Osteoarthritis of carpometacarpal joint of left thumb Inflammatory arthropathy Screening examination for infectious disease Pain in joint, multiple sites Arthritis, multiple joint involvement Migraine Epidermal cyst Obesity (BMI 30-39.9) Derangement of ankle, left Neuropathy Thoracic radiculopathy Superficial gastritis without hemorrhage Pure hypercholesterolemia Surgical History (Updated 05/25/24 @ 04:29 by Ronni Kingsley MD) Hx of toe surgery Hx of colonoscopy History of esophagogastroduodenoscopy (EGD) History of surgery History of oral surgery History of eye surgery H/O gastric bypass History of foot surgery History of elbow surgery History of cholecystectomy History of tonsillectomy Family History Mother Diabetes mellitus Arthritis Father Cardiovascular disease Brother Asbestosis Mesothelioma Arthritis Sister Mental health problem Arthritis Cancer Other Substance abuse Social History Household Members: Family and Children Housing: House Are you a primary home child care provider to a significant other at home: No Do you presently have visiting nurse or other home services: No Alcohol intake: current Alcohol intake frequency: holidays/special occasions only Alcohol type: wine Patient Tobacco Use Status: Current someday Tobacco user Tobacco use type: Cigarette Cigarettes Per Day: 10 Years Smoked: 54 e-Cigarette/Vaping Use: Never Used Second Hand Smoke Exposure: Yes Substance Use Type: Marijuana service: No Current occupational status: disabled Cognitive needs: Yes (cane) Hearing needs: No Vision needs: Yes Review of Systems Const Details: Review of Systems Constitutional: Denies fever, chills, weight loss ENT: Denies vision changes, eye pain or eye redness, dental caries, dry mouth GI: Denies nausea, vomiting, diarrhea, abdominal pain, change in BM Pulm: Denies SOB, LLOYD, hemoptysis, wheezing Cards: Denies chest pain, palpitations Skin: Denies Raynaud's, rash, nail changes, photosensitivity, FORGING PRESS OPERATOR: Denies headaches, weakness, paresthesias, recurrent falls MSK: as per HPI All other systems reviewed and are unremarkable except noted above Physical Exam Vital Signs: Last Vital Signs Pulse 88 09/18/24 14:26 BP 138/82 09/18/24 14:26 Pulse Ox 96 09/18/24 14:26 Oxygen Delivery Method Room Air 09/18/24 14:26 BMI result Body Mass Index 31.5 just msk OA to knee OA to shoulders Office Procedures AMB Joint Injection/Aspiration Joint Injection/Aspiration Details: Procedure was explained to the patient and informed consent was obtained. ? Risks associated with the procedure were discussed with the patient including but not limited to bleeding, infection, drug reactions and reactions to the topical anesthetic. Patient made aware of signs to look out for infectious complications. The area of interest was identified and confirmed with patient. ?This was subsequently cleaned with chlorhexidine x3. ? The area was then anesthetized using ethyl chloride spray. 40 mg Kenalog with 1 cc 1% lidocaine was injected without issue. ?Minimal to no bleeding. ?Patient tolerated procedure. Primary Site: right shoulder Prep: site was prepped using aseptic technique and ethochloride spray was applied Injected: 40 mg of, Kenalog, with 1 mL of, 1% plain lidocaine and in the joint Approach Used: posterolateral Procedure: The patient tolerated the procedure well Coding 04600 - Large joint Procedure code (CPT) selection complete Office Meds lidocaine (PF) 10 mg/mL (1 %) injection solution Performing Provider: Edith Seals MD [place] [facility] Administered by: Edith Seals MD on 09/24/24 16:23 Dose Route Admin Location Dispensed Lot Number Expiration Date [facility] Strapper Operator 1 mL intra-articular right shoulder 2 mL [id number] 07/07/26 35318-267-18 [employer] Total Dispensed Waste 2 mL 50 % Kenalog 40 mg/mL suspension for injection Performing Provider: Edith Seals MD [place] [facility] Administered by: Edith Seals MD on 09/24/24 16:23 Dose Route Admin Location Dispensed Lot Number Expiration Date [facility] Strapper Operator 40 mg intra-articular right shoulder 1 mL [id number] 10/06/25 [address]-2 [employer] Total Dispensed Waste 1 mL 0 % Results Reviewed Results Reviewed: Laboratory Tests 12/26/23 04/21/24 12:26 17:54 WBC 12.5 H RBC 4.90 Hgb 15.1 Hct 44.7 Plt Count 286 ESR 19 Sodium 138 Potassium 5.1 D Chloride 105 Carbon Dioxide 27 BUN 5 L Creatinine 0.78 AST 22 ALT 12 Alkaline Phosphatase 98 XR bilateral shoulders 05/2023 Left Shoulder: Mild degenerative changes in the acromioclavicular joint with joint space narrowing and hypertrophic change. Hypertrophic change along the superior lateral aspect of the acromion. Mild degenerative changes in the glenohumeral joint. Advanced degenerative changes on limited images of the upper thoracic spine. Right Shoulder: Moderate degenerative changes in the acromioclavicular joint with joint space narrowing and hypertrophic change. Moderate degenerative changes in the glenohumeral joint with hypertrophic change along the inferior aspect of the glenoid. Hypertrophic spurring along the lateral and superior aspects of the acromion. Assessment & Plan Assessment & Plan (1) Osteoarthritis of right shoulder: Code(s): M19.011 - Primary osteoarthritis, right shoulder (2) Generalized osteoarthritis: Code(s): M15.9 - Polyosteoarthritis, unspecified Category: Medical Plan: #Polyarticular OA Patient is a 64 y.o. female with polyarticular OA here today for follow up. Complaining mainly of right shoulder pain today Received injection today Plan - s/p right GH joint injection - Encouraged exercise and stretching - Continue gabapentin and topical diclofenac - RTC 6 months Plan I spent 20 minutes reviewing the record and labs, taking a history, examining the patient, discussing the treatment plan, ordering diagnostic work up and documenting in the medical record Orders: Orders AMB Joint Injection/Aspiration 09/18/24 M19.011 - Primary osteoarthritis, right shoulder Coding Level of Care Code Est Pt Level 3 (95592) Diagnoses Osteoarthritis of right shoulder M19.011 Generalized osteoarthritis M15.9 CPT Codes Coding - Large joint: 22504 - Large joint ([id number])
--- OUTSIDE RECORDS SUMMARY | 2024-09-18 14:27 | XMS_ITS | Clinical Summary ---
Author Organization [facility] Address [address] [place] [address] Care Team Providers Care Offbearer Name Role Phone Sonya Pollack MD Primary Care Provider [phone] Surgical History Surgery Date Site/Laterality Comments OTHER SURGICAL HISTORY PROCEDURE: RI LAPS TX ECTOPIC PREG W/O SALPING&/OOPHORECTOMY OTHER SURGICAL HISTORY PROCEDURE: ---- OTHER ----; COMMENT: Several foot surgeries for fractured left foot GASTRIC BYPASS PROCEDURE: RI GASTRIC RSTCV W/BYP W/SM INT RCNSTJ LIMIT ABSRPJ CHOLECYSTECTOMY PROCEDURE: LAPAROSCOPY, CHOLECYSTECTOMY SECTION PROCEDURE: RI DELIVERY ONLY OTHER SURGICAL HISTORY 1978 PROCEDURE: RI CONIZATION CERVIX W/WO D&C RPR KNIFE/LASER; COMMENT: For cervical cancer Medical History Medical History Date Comments CHRISSY (obstructive sleep apnea) DX :CHRISSY (obstructive sleep apnea); COMMENT: Non complaint with CPAP Cataract DX:Cataract Glaucoma DX:Glaucoma Cervical cancer (CMS/HCC V24 , CMS/HCC V28) DX:Cervical cancer (HCC); CO MMENT: Stage II, localized, s/p radiation and surgery. [...] Comments Lung cancer Brother 1 Other: CAD, [place] Father Other: Pancreatic cancer Mother Relation Name [...] - 2023-2 5 season) 2023 Influenza Vaccine (Season Ended) 2024 RSV Immunization Adult Patie nts (1 - 1-dose 75+ series) 01/17/2035 HIB [...] age to complete this topic Meningococcal B Vaccine Aged Out No l onger eligible based on patient's age to complete this topic RSV Immunization Patients Un nilsa 20 months Aged Out No longer eligible b ased on patient's age to complete this topic Varicella Vaccines Aged Out No longer eligible based on patient's age to complete this topic Care Teams Offbearer Relationship Specialty Start Date End Date Sonya Pollack MD PCP - General Internal Medicine 03/22/16
== END 2024-09-18 15:08 | disposition home or self-care (01) ==
LOC: HO.RHE 14:25
PROVIDERS: PCP Internal Medicine; Visit Provider Student in an Organized Health Care Education/Training Program
DX: M19.011 Primary osteoarthritis, right shoulder (principal)
CPT/HCPCS: 20610; 99213

== ENCOUNTER → 2024-09-18 14:24 | Outpatient (BNVA) | payer MEDICARE, MEDICAID, SELFPAY | PROVIDERS: PCP Internal Medicine; Visit Provider Student in an Organized Health Care Education/Training Program | DX: M19.011 Primary osteoarthritis, right shoulder (principal); M15.9 Polyosteoarthritis, unspecified | CPT/HCPCS: 20610; 99212; J3300 ==

== ENCOUNTER 2024-10-15 14:15 | Outpatient (REF) | payer MEDICARE, MEDICAID, SELFPAY ==
--- NOTE | ~2024-10-15 | XR_ITS ---
EXAMINATION: XR SHOULDER, RIGHT CLINICAL INFORMATION: M25.511 - Pain in right shoulder COMPARISON: 05/28/2023. TECHNIQUE: AP external rotation, Grashey, scapular Y, and axillary views of the right shoulder. FINDINGS: Normal bone mineralization. No fracture, dislocation, or suspicious bone lesion. Normal alignment. The glenohumeral joint demonstrates mild to moderate osteoarthritis. The AC joint demonstrates mild to moderate superior surface spurring. There is a type IV acromion. No undersurface spurring. The subacromial space is preserved. Remainder of the soft tissue and bony structures appear normal. XR/XR shoulder RT min 2V IMPRESSION: 1. No acute bony abnormalities. 2. Mild to moderate glenohumeral joint and AC joint osteoarthritis. Electronically signed by: Didier Paul MD 10/15/2024 04:03 PM EDT
[2024-10-15 16:37] LABS: Alanine Aminotransferase 19 U/L (0-31); Albumin Level 4.3 g/dL (3.5-5.0); Alkaline Phosphatase 89 U/L (39-117); Anion Gap 12 (12-20); Aspartate Amino Transferase 26 U/L (5-31); Blood Urea Nitrogen 8 mg/dL (9-16); Calcium 9.3 mg/dL (8.4-10.2); Carbon Dioxide 28 mmol/L (22-29); Chloride 103 mmol/L (96-108); Cholesterol 146 mg/dL (<200); Estimated Glomerular Filt Rate > 60; HDL Cholesterol 49 mg/dL (>40); Potassium 4.3 mmol/L (3.3-5.1); Sodium 139 mmol/L (135-145); Total Protein 7.2 g/dL (6.5-8.0); Triglycerides 125 mg/dL (<150)
== END 2024-10-15 14:16 | disposition home or self-care (01) ==
LOC: HO.LAB 14:15
PROVIDERS: PCP Internal Medicine; Visit Provider Internal Medicine
DX: E78.00 Pure hypercholesterolemia, unspecified (principal); M25.511 Pain in right shoulder; K29.30 Chronic superficial gastritis without bleeding; M54.14 Radiculopathy, thoracic region; M12.9 Arthropathy, unspecified; M24.9 Joint derangement, unspecified; J34.89 Other specified disorders of nose and nasal sinuses; E66.9 Obesity, unspecified; Z68.30 Body mass index [BMI] 30.0-30.9, adult; F17.210 Nicotine dependence, cigarettes, uncomplicated; Z98.84 Bariatric surgery status; Z13.31 Encounter for screening for depression; Z13.39 Encounter for screening examination for other mental health and behavioral disorders
CPT/HCPCS: 36415; 73030; 80053; 80061; 96127; 99212

== ENCOUNTER 2024-10-15 14:15 | Outpatient (AMB) | payer MEDICARE, MEDICAID, SELFPAY ==
[2024-10-15 14:18] VITALS: BP 118/72; PULSE 81; O2SAT 96; BMI 30.8
--- NOTE | 2024-10-15 14:18 | A.OFFPC_ITS ---
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 [employer] Required: No Accompanied by: Self / Same As Patient Allergies adhesive tape (TAPE,ADHESIVE) Allergy (Severe, Verified 10/15/24 14:45) ANAPHYLAXIS diphenhydramine (From BENADRYL) Allergy (Severe, Verified 10/15/24 14:45) ANAPHYLAXIS erythromycin base (ERYTHROMYCIN BASE) Allergy (Severe, Verified 10/15/24 14:45) ANAPHYLAXIS latex (LATEX) Allergy (Severe, Verified 10/15/24 14:45) ANAPHYLAXIS levofloxacin (From LEVAQUIN) Allergy (Severe, Verified 10/15/24 14:45) ANAPHYLAXIS meperidine (From DEMEROL) Allergy (Severe, Verified 10/15/24 14:45) ANAPHYLAXIS morphine (MORPHINE) Allergy (Unknown, Verified 10/15/24 14:45) UNKNOWN RED DYE IN TYLOX Allergy (Unknown, Uncoded 10/15/24 14:45) Unknown pollen Allergy (Uncoded 10/15/24 14:45) Sneezing Medication List - Last Reconciled 10/15/24 by Ronni Kingsley MD albuterol sulfate 90 mcg/actuation (Ventolin HFA) 2 puffs inhalation Q6H PRN atorvastatin 40 mg PO DAILY 90 days calcium carbonate-vitamin D3 600 mg-10 mcg (400 unit) (Calcium 600 + D(3)) 1 tab PO BID 30 days diclofenac sodium 1% 2 - 3 grams topical TID dicyclomine 20 mg (2 x 10 mg) PO BID famotidine 40 mg PO BEDTIME PRN gabapentin 800 mg PO TID mszferbi-qnn-cqey-FA-vit K-lut 8 mg iron-400 mcg-50 mcg (Centrum Silver Women) 1 tab PO DAILY ondansetron 4 mg PO Q8H PRN pantoprazole DR 40 mg PO DAILY sucralfate 1 g PO QID Tobacco use date assessed: 10/15/24 Fall risk assessment: 2 + Falls in past year Last assessed Fall Risk: 10/15/24 Dental Screening Dental Screen Date: 10/15/24 Did you have a dental visit in the last 12 months?: Yes Did you have a dental problem in the last 6 months where you did not have access to dental care?: No Was dental information given to patient?: Patient has dentist HPI 4 month f/u HPI Details Patient comes in today for her follow up visit States that she has been experiencing significantly increased pain in her right shoulder lately Relates that her shoulder pain got much worse a few weeks ago - thinks it started a couple of days after she received a cortisone injection into her right shoulder from rheumatology last month Notes that she can hardly move her right arm/shoulder now and she is concerned that she may have broken her collar bone as she thinks she may have fallen from her bed while she was asleep recently She denies any headaches or dizziness Denies any chest pains, no increased shortness of breath No nausea/vomiting, no abdominal pain No change in bowel habits noted Adds that she has noticed that the skin on the tip of her nose seems to have gotten a lot darker lately and is wondering if she can have this checked out further She has not yet gotten her follow up labs done - states that she can get them done as soon as she leaves the office today [facility] Medical History Smoker Osteoarthritis of carpometacarpal joint of left thumb Inflammatory arthropathy Screening examination for infectious disease Pain in joint, multiple sites Arthritis, multiple joint involvement Migraine Epidermal cyst Obesity (BMI 30-39.9) Derangement of ankle, left Neuropathy Thoracic radiculopathy Superficial gastritis without hemorrhage Pure hypercholesterolemia Surgical History Hx of toe surgery Hx of colonoscopy History of esophagogastroduodenoscopy (EGD) History of surgery History of oral surgery History of eye surgery H/O gastric bypass History of foot surgery History of elbow surgery History of cholecystectomy History of tonsillectomy Family History Mother Diabetes mellitus Arthritis Father Cardiovascular disease Brother Asbestosis Mesothelioma Arthritis Sister Mental health problem Arthritis Cancer Other Substance abuse Social History Household Members: Family and Children Housing: House Are you a primary home health care worker to a significant other at home: No Do you presently have visiting nurse or other home services: No Alcohol intake: current Alcohol intake frequency: holidays/special occasions only Alcohol type: wine Patient Tobacco Use Status: Current someday Tobacco user Tobacco use type: Cigarette Cigarettes Per Day: 10 Years Smoked: 54 e-Cigarette/Vaping Use: Never Used Second Hand Smoke Exposure: Yes Substance Use Type: Marijuana service: No Current occupational status: disabled Current occupational exposures/hazards: No Cognitive needs: Yes (cane) Hearing needs: No Vision needs: Yes Questionnaire PHQ-9 Over the last 2 weeks, how often have you been bothered by any of the following problems? 1. Little interest or pleasure in doing things: nearly every day 2. Feeling down, depressed, or hopeless: nearly every day 3. Trouble falling or staying asleep, or sleeping too much: nearly every day 4. Feeling tired or having little energy: nearly every day 5. Poor appetite or overeating: nearly every day 6. Feeling bad about yourself - or that you are a failure or have let yourself or your family down: not at all 7. Trouble concentrating on things, such as reading the newspaper or watching television: nearly every day 8. Moving or speaking so slowly that other people could have noticed. Or the opposite - being so fidgety or restless that you have been moving around a lot more than usual: not at all 9. Thoughts that you would be better off or of hurting yourself in some way: not at all Total score: 18 Depression Screening Interpretation: Positive Depression Screening Follow-up: Existing condition and In treatment Depression Screening Done: Yes 55917 - PHQ-9 Billing: Yes Source: Developed by Drs. Lan Brar, Ava Grey, Brennen Marte and colleagues, with an educational alex from [employer]. Thrive Questionnaire Date Thrive assessed: 10/15/24 I am a: Patient What is your living situation today?: I have a steady place to live Within the past 12 months, did the food you bought not last and you didn't have the money to get more?: Never true Within the past 12 months, did you worry whether your food would run out before you got money to buy more?: Never true Do you have trouble paying for medicines?: No Do you have trouble getting transportation to medical appointments?: No Do you have trouble paying your heating and electricity bill?: No Do you have trouble taking care of your child, family member or friend?: No Do you have trouble with day-to-day activities such as bathing, preparing meals, shopping, managing finances, etc.?: No Are you currently unemployed and looking for a job?: No Are you interested in more education?: No Please select the resources that you would like help with: None Currently or been in a relationship where the following occur: No concerns reported THRIVE Score: 0 AUDIT C Alcohol Use Questionnaire (AUDIT-C) 1. How often do you have a drink containing alcohol?: Monthly or less 2. How many drinks containing alcohol do you have on a typical day when you are drinking?: 1 or 2 3. How often do you have six or more drinks on one occasion?: Never Total Score: 1 Score Reviewed/Action Taken: Yes MELANIE-7 AMB Questionnaire MELANIE-7 Date MELANIE - 7 assessed: 10/15/24 Feeling nervous, anxious, or on edge: 0 = Not at all Not being able to stop or control worryin = Not at all Worrying too much about different things: 0 = Not at all Trouble relaxin = Not at all Being so restless that it is hard to sit still: 0 = Not at all Becoming easily annoyed or irritable: 0 = Not at all Feeling afraid as if something awful might happen: 0 = Not at all Total MELANIE-7 score (0-4 normal; 5-9 mild; 10-14 moderate; 15-21 severe): 0 Source: Developed by Drs. Lan Brar, Ava Grey, Brennen Marte and colleagues, with an educational alex from [employer]. Review of Systems Const Denies chills, Reports fatigue, Denies fever(s) and Denies headache(s) ENT Denies dysphagia, Denies dizziness, Denies otalgia, Denies headache(s), Denies neck pain, Denies odynophagia and Denies sore throat Card Denies chest pain, Denies palpitations and Denies dyspnea Resp Denies chest congestion, Denies cough and Denies dyspnea GI Denies abdominal pain, Reports constipation (symptoms improved with Movantik), Denies dysphagia, Denies heartburn, Denies diarrhea, Denies nausea, Denies odynophagia and Denies vomiting Denies difficulty voiding, Denies nocturia, Denies dysuria and Denies urinary urgency Musc Reports back pain (chronic), Reports arthralgias (left ankle/foot - chronic; right shoulder - increased over past month), Denies joint swelling and Denies neck pain Skin/Breast Details: (+) darkening of skin on the tip of her nose Denies rash Neuro Denies dizziness and Denies headache(s) Endo Reports fatigue and Denies palpitations Physical exam (Primary Care) Vital Signs: Last Vital Signs Pulse 81 10/15/24 14:18 BP 118/72 10/15/24 14:18 Pulse Ox 96 10/15/24 14:18 Oxygen Delivery Method Room Air 10/15/24 14:18 BMI result Body Mass Index 30.8 Tobacco/Smoking Status: Tobacco use Status Tobacco use date assessed 10/15/24 10/15/24 14:29 Patient Tobacco Use Status Current someday Tobacco 10/15/24 14:29 Tobacco use type Cigarette 10/15/24 14:29 e-Cigarette/Vaping Use Never Used 10/15/24 14:29 PHQ-9: PHQ-9 Score PHQ-9: Total score 18 10/15/24 14:29 Depression Screening Interpretation: Positive Depression Screening Follow-up: Existing condition and In treatment Thrive Assessment: Date of Thrive Assessment Date Thrive assessed 10/15/24 10/15/24 14:29 Currently or been in a relationship where the following occur: No concerns reported Const General: no acute distress and alert HENMT Other: (+) discoloration of the skin around the tip of the nose Ears: TM's normal bilaterally and EAC's normal Throat: Yes posterior oropharynx normal and Yes tonsils normal (no TP congestion noted) Neck Neck: Yes no lymphadenopathy and Yes supple Thyroid: Thyroid normal Resp Auscultation: clear to auscultation bilaterally, no rales and no wheezes Cardio Rate: regular rate Rhythm: regular rhythm Heart sounds: no murmurs GI Palpation (GI): Soft to palpation and nontender Auscultation: normal bowel sounds Back/Spine/Pelvis Thoracic/Lumbar Spine: lumbar spinal tenderness Skin Rashes: no rashes Extrem General: Yes no clubbing, cyanosis or edema Right upper extremity: shoulder/upper arm Details: tenderness Location: of the A-C joint and abnormal ROM (limited ROM due to pain) Right lower extremity: hip/thigh Details: tenderness Location: of the hip Left lower extremity: ankle Coding Level of Care Code Est Pt Level 4 (96005) Diagnoses Pure hypercholesterolemia E78.00 Superficial gastritis without hemorrhage, unspecified chronicity K29.30 Chronicity: unspecified Thoracic radiculopathy M54.14 Arthritis, multiple joint involvement M12.9 Derangement of ankle, left M24.9 Nasal lesion J34.89 Smoker F17.200 Obesity (BMI 30-39.9) E66.9 Additional Codes PHQ-9 - 73639 - PHQ-9 Billing: Yes ([id number]) Assessment & Plan Assessment & Plan (1) Pure hypercholesterolemia: Code(s): E78.00 - Pure hypercholesterolemia, unspecified Category: Medical Plan: Patient was not able to get her follow-up labs done prior to her appointment today - states that she will go and get these done right after her appointment today Reinforced low cholesterol diet Continue Atorvastatin 40 mg QD Will recheck her labs and fasting lipids in 4 months for follow up (2) Superficial gastritis without hemorrhage: Code(s): K29.30 - Chronic superficial gastritis without bleeding Category: Medical Qualifiers: Chronicity: unspecified Qualified Code(s): K29.30 - Chronic superficial gastritis without bleeding Plan: EGD with biopsies done in March 2019 showed (+) acute ulcers at the small bowel anastomotic site; gastric mucosa showed (+) erythema but biopsy was negative; it was also negative for H pylori Repeat EGD done in November 2019 shows mild gastric erythema and a grade 3 ulcer on the Keysha limb of the jejunum about 15 to 20 mm in diameter; biopsies were taken from these 2 sites and they came back negative for dysplasia or malignancy Follow up EGD in 2020 revealed similar findings Upper endoscopy done again on 04/02/2024 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 She underwent balloon dilatation and clipping of the gastrogastric fistula Continue Omeprazole 40 mg BID, Famotidine 40 mg Q HS and Sucralfate 1 gm TID with meals and at bedtime She underwent repeat EGD in June 2024 - no active bleeding and no new findings Follow-up with GI as scheduled - plan is to have patient undergo repeat EGD again in 4-6 months to ensure resolution of the anastomotic ulcers (3) Thoracic radiculopathy: Code(s): M54.14 - Radiculopathy, thoracic region Category: Medical Plan: Follow up with pain management as scheduled (4) Arthritis, multiple joint involvement: Code(s): M12.9 - Arthropathy, unspecified Category: Medical Plan: Follow up with rheumatology as scheduled - she is now seeing [facility] [place] [facility] instead of going to [facility] that rheumatology initially suspected that she may have psoriatic arthritis but as of her last visit, was advised that she most likely just had degenerative OA Her serum inflammatory markers on her recent labs have all come back normal She received cortisone injection into her right shoulder last month but patient reports significantly increased pain in her shoulder since Will send her for repeat x-rays of the right shoulder RUBÉN for further evaluation (5) Derangement of ankle, left: Code(s): M24.9 - Joint derangement, unspecified Category: Medical Plan: (+) Hx of fracture of the left ankle, S/P surgical repair, with consequent chronic arthropathy of the ankle Continue Gabapentin 800 mg TID (6) Nasal lesion: Code(s): J34.89 - Other specified disorders of nose and nasal sinuses Category: Medical Plan: Will refer her to dermatology for further evaluation and management (7) Smoker: Code(s): F17.200 - Nicotine dependence, unspecified, uncomplicated Category: Social Hx Plan: Patient is counseled again to continue working on complete smoking cessation (8) Obesity (BMI 30-39.9): Comment: S/P gastric bypass in 2014 Code(s): E66.9 - Obesity, unspecified Category: Medical Plan: Reinforced diet; exercise and weight loss are unrealistic currently given patient's multiple physical issues Plan Follow up in 4 months Orders: Orders XR shoulder RT min 2V Today M25.511 - Pain in right shoulder Comprehensive [place]. Panel Fast 4 Months E78.00 - Pure hypercholesterolemia, unspecified Lipid Panel 4 Months E78.00 - Pure hypercholesterolemia, unspecified Referrals Dermatology Referral J34.89 - Other specified disorders of nose and nasal sinuses
--- OUTSIDE RECORDS SUMMARY | 2024-10-15 14:28 | XMS_ITS | Clinical Summary ---
Author Organization [facility] Address [address] [place] [address] Care Team Providers Care Cell Preparer Name Role Phone Sonya Pollack MD Primary Care Provider [phone] Surgical History Surgery Date Site/Laterality Comments OTHER SURGICAL HISTORY PROCEDURE: CO LAPS TX ECTOPIC PREG W/O SALPING&/OOPHORECTOMY OTHER SURGICAL HISTORY PROCEDURE: ---- OTHER ----; COMMENT: Several foot surgeries for fractured left foot GASTRIC BYPASS PROCEDURE: CO GASTRIC RSTCV W/BYP W/SM INT RCNSTJ LIMIT ABSRPJ CHOLECYSTECTOMY PROCEDURE: LAPAROSCOPY, CHOLECYSTECTOMY SECTION PROCEDURE: CO DELIVERY ONLY OTHER SURGICAL HISTORY 1978 PROCEDURE: CO CONIZATION CERVIX W/WO D&C RPR KNIFE/LASER; COMMENT: [...] Comments Lung cancer Brother 1 Other: CAD, [place] Father Other: Pancreatic cancer Mother Relation Name [...] 5 Years) and At-Risk Patients (6 to 49 Years) (1 of 2 - PCV) 01/17/1979 Cervical Cancer Screening: P ap Smear 01/17/1981 Zoster Vaccines (1 of 2) 01/17/2010 Colorectal Cancer Screening: Colonoscopy 05/07/2023 Depression Screening 05/07/2023 HIV Screening 05/07/2023 Hepatitis C Screening 05/07/2023 Social Influencers of Health Screening 05/07/2023 COVID-19 Vaccine ( - 2023-2 5 season) 2023 Influenza Vaccine (#1) 2024 RSV Immunization Adult Patie nts (1 [...] age to complete this topic Care Teams Cell Preparer Relationship Specialty Start Date End Date Sonya Pollack MD PCP - General Internal Medicine 03/22/16
== END 2024-10-15 15:05 | disposition home or self-care (01) ==
LOC: HO.HMCH 14:16
PROVIDERS: PCP Internal Medicine; Visit Provider Internal Medicine
DX: E78.00 Pure hypercholesterolemia, unspecified (principal); K29.30 Chronic superficial gastritis without bleeding; E66.9 Obesity, unspecified; Z68.30 Body mass index [BMI] 30.0-30.9, adult; M54.14 Radiculopathy, thoracic region; M12.9 Arthropathy, unspecified; M24.9 Joint derangement, unspecified; J34.89 Other specified disorders of nose and nasal sinuses; F17.200 Nicotine dependence, unspecified, uncomplicated

== ENCOUNTER → 2024-10-15 15:29 | Outpatient (BNV) | payer MEDICARE, MEDICAID, SELFPAY | PROVIDERS: PCP Internal Medicine; Visit Provider Radiology Diagnostic Radiology | DX: M25.511 Pain in right shoulder (principal) | CPT/HCPCS: 73030 ==

== ENCOUNTER 2025-02-16 14:24 | Outpatient (AMB) | payer MEDICARE, MEDICAID, SELFPAY ==
[2025-02-16 14:26] VITALS: BP 116/78; PULSE 75; O2SAT 96; BMI 31.8
--- NOTE | 2025-02-16 14:26 | A.OFFPC_ITS ---
Vital Signs 02/16/25 14:26 Height 5 ft 8 in Weight 209 lb BMI 31.8 BP 116/78 Blood Pressure Location Lt brachial Position Sitting Pulse 75 Pulse Source Pulse Oximeter Pulse Oximetry (%) 96 Oxygen Delivery Method Room Air Intake Visit Reasons: 4 months Locker Room Attendant Required: No Accompanied by: Self / Same As Patient Allergies adhesive tape (TAPE,ADHESIVE) Allergy (Severe, Verified 02/16/25 14:55) ANAPHYLAXIS diphenhydramine (From BENADRYL) Allergy (Severe, Verified 02/16/25 14:55) ANAPHYLAXIS erythromycin base (ERYTHROMYCIN BASE) Allergy (Severe, Verified 02/16/25 14:55) ANAPHYLAXIS latex (LATEX) Allergy (Severe, Verified 02/16/25 14:55) ANAPHYLAXIS levofloxacin (From LEVAQUIN) Allergy (Severe, Verified 02/16/25 14:55) ANAPHYLAXIS meperidine (From DEMEROL) Allergy (Severe, Verified 02/16/25 14:55) ANAPHYLAXIS morphine (MORPHINE) Allergy (Unknown, Verified 02/16/25 14:55) UNKNOWN RED DYE IN TYLOX Allergy (Unknown, Uncoded 02/16/25 14:55) Unknown pollen Allergy (Uncoded 02/16/25 14:55) Sneezing Medication List - Last Reconciled 02/16/25 by Ronni Kingsley MD albuterol sulfate 90 mcg/actuation (Ventolin HFA) 2 puffs inhalation Q6H PRN atorvastatin 40 mg PO DAILY 90 days calcium carbonate-vitamin D3 600 mg-10 mcg (400 unit) (Calcium 600 + D(3)) 1 tab PO BID 30 days diclofenac sodium 1% 2 - 3 grams topical TID dicyclomine 20 mg (2 x 10 mg) PO BID famotidine 40 mg PO BEDTIME PRN gabapentin 800 mg PO TID mdjasqcp-[id number]-ysak-FA-vit K-lut 8 mg iron-400 mcg-50 mcg (Centrum Silver Women) 1 tab PO DAILY omeprazole 40 mg PO QPM ondansetron 4 mg PO Q8H PRN pantoprazole 40 mg PO QAM sucralfate 1 g PO QID Tobacco use date assessed: 02/16/25 Last assessed Fall Risk: 02/16/25 Dental Screening Dental Screen Date: 02/16/25 HPI 4 months HPI Details Patient comes in today for her follow up visit States that she is currently still experiencing increased pain diffusely, including over her lower back, and she would like to see about getting back on Flexeril, which she recalls has helped her a lot in the past Adds that she continues to experience increased pain in her right shoulder, which has been bothering her for a while now and she feels that it has gotten worse lately She has also been having problems sleeping at night and would like to try to get back on Zolpidem - she is wondering why her insurance will not cover the Rx anymore She denies any headaches or dizziness Denies any chest pains, no SOB No nausea/vomiting, no abdominal pain No change in bowel habits noted She did not get her follow up labs done prior to her appointment today but states that she did get her labs done right after her last visit a few months ago in October 2024 [facility] Medical History (Updated 02/17/25 @ 05:32 by Ronni Kingsley MD) Insomnia Smoker Osteoarthritis of carpometacarpal joint of left thumb Inflammatory arthropathy Screening examination for infectious disease Pain in joint, multiple sites Arthritis, multiple joint involvement Migraine Epidermal cyst Obesity (BMI 30-39.9) Derangement of ankle, left Neuropathy Thoracic radiculopathy Superficial gastritis without hemorrhage Pure hypercholesterolemia Surgical History Hx of toe surgery Hx of colonoscopy History of esophagogastroduodenoscopy (EGD) History of surgery History of oral surgery History of eye surgery H/O gastric bypass History of foot surgery History of elbow surgery History of cholecystectomy History of tonsillectomy Family History Mother Diabetes mellitus Arthritis Father Cardiovascular disease Brother Asbestosis Mesothelioma Arthritis Sister Mental health problem Arthritis Cancer Other Substance abuse Social History Household Members: Family and Children Housing: House Are you a primary resident care associate to a significant other at home: No Do you presently have visiting nurse or other home services: No Alcohol intake: current Alcohol intake frequency: holidays/special occasions only Alcohol type: wine Patient Tobacco Use Status: Current someday Tobacco user Tobacco use type: Cigarette Cigarettes Per Day: 10 Years Smoked: 54 e-Cigarette/Vaping Use: Never Used Second Hand Smoke Exposure: Yes Substance Use Type: Marijuana service: No Current occupational status: disabled Current occupational exposures/hazards: No Cognitive needs: Yes (cane) Hearing needs: No Vision needs: Yes Questionnaire PHQ-9 Over the last 2 weeks, how often have you been bothered by any of the following problems? 1. Little interest or pleasure in doing things: nearly every day 2. Feeling down, depressed, or hopeless: nearly every day 3. Trouble falling or staying asleep, or sleeping too much: nearly every day 4. Feeling tired or having little energy: nearly every day 5. Poor appetite or overeating: nearly every day 6. Feeling bad about yourself - or that you are a failure or have let yourself or your family down: not at all 7. Trouble concentrating on things, such as reading the newspaper or watching television: nearly every day 8. Moving or speaking so slowly that other people could have noticed. Or the opposite - being so fidgety or restless that you have been moving around a lot more than usual: not at all 9. Thoughts that you would be better off or of hurting yourself in some way: not at all Total score: 18 Depression Screening Interpretation: Positive Depression Screening Follow-up: Existing condition and Follow-up Visit Requested Depression Screening Done: Yes 90243 - PHQ-9 Billing: Yes Source: Developed by Drs. Lan Brar, Ava Grey, Brennen Marte and colleagues, with an educational alex from [employer]. Thrive Questionnaire Date Thrive assessed: 02/16/25 I am a: Patient What is your living situation today?: I have a steady place to live Within the past 12 months, did the food you bought not last and you didn't have the money to get more?: Never true Within the past 12 months, did you worry whether your food would run out before you got money to buy more?: Never true Do you have trouble paying for medicines?: No Do you have trouble getting transportation to medical appointments?: No Do you have trouble paying your heating and electricity bill?: No Do you have trouble taking care of your child, family member or friend?: No Do you have trouble with day-to-day activities such as bathing, preparing meals, shopping, managing finances, etc.?: No Are you currently unemployed and looking for a job?: No Are you interested in more education?: No Please select the resources that you would like help with: None Currently or been in a relationship where the following occur: No concerns reported THRIVE Score: 0 AUDIT C Alcohol Use Questionnaire (AUDIT-C) 1. How often do you have a drink containing alcohol?: Monthly or less 2. How many drinks containing alcohol do you have on a typical day when you are drinking?: 1 or 2 3. How often do you have six or more drinks on one occasion?: Never Total Score: 1 Score Reviewed/Action Taken: Yes MELANIE-7 AMB Questionnaire MELANIE-7 Date MELANIE - 7 assessed: 02/16/25 Feeling nervous, anxious, or on edge: 0 = Not at all Not being able to stop or control worryin = Not at all Worrying too much about different things: 0 = Not at all Trouble relaxin = Not at all Being so restless that it is hard to sit still: 0 = Not at all Becoming easily annoyed or irritable: 0 = Not at all Feeling afraid as if something awful might happen: 0 = Not at all Total MELANIE-7 score (0-4 normal; 5-9 mild; 10-14 moderate; 15-21 severe): 0 Source: Developed by Drs. Lan Brar, Ava Grey, Brennen Marte and colleagues, with an educational alex from [employer]. Review of Systems Const Denies chills, Reports difficulty sleeping, Reports fatigue, Denies fever(s) and Denies headache(s) ENT Denies dysphagia, Denies dizziness, Denies otalgia, Denies headache(s), Denies neck pain, Denies odynophagia and Denies sore throat Card Denies chest pain, Denies palpitations and Denies dyspnea Resp Denies chest congestion, Denies cough and Denies dyspnea GI Denies abdominal pain, Reports constipation (symptoms improved with Movantik), Denies dysphagia, Denies heartburn, Denies diarrhea, Denies nausea, Denies odynophagia and Denies vomiting Denies difficulty voiding, Denies nocturia, Denies dysuria and Denies urinary urgency Musc Reports back pain (chronic), Reports arthralgias (left ankle/foot - chronic; right shoulder - increased over past months), Denies joint swelling and Denies neck pain Skin/Breast Denies rash Neuro Denies dizziness and Denies headache(s) Endo Reports fatigue and Denies palpitations Physical exam (Primary Care) Vital Signs: Last Vital Signs Pulse 75 02/16/25 14:26 BP 116/78 02/16/25 14:26 Pulse Ox 96 02/16/25 14:26 Oxygen Delivery Method Room Air 02/16/25 14:26 BMI result Body Mass Index 31.8 Tobacco/Smoking Status: Tobacco use Status Tobacco use date assessed 02/16/25 02/16/25 14:35 Patient Tobacco Use Status Current someday Tobacco 02/16/25 14:35 Tobacco use type Cigarette 02/16/25 14:35 e-Cigarette/Vaping Use Never Used 02/16/25 14:35 PHQ-9: PHQ-9 Score PHQ-9: Total score 18 02/16/25 14:59 Depression Screening Interpretation: Positive Depression Screening Follow-up: Existing condition and Follow-up Visit Requested Thrive Assessment: Date of Thrive Assessment Date Thrive assessed 02/16/25 02/16/25 14:35 Currently or been in a relationship where the following occur: No concerns reported Const General: no acute distress and alert HENMT Ears: TM's normal bilaterally and EAC's normal Throat: Yes posterior oropharynx normal and Yes tonsils normal (no TP congestion noted) Neck Neck: Yes supple and No lymphadenopathy Thyroid: Thyroid normal Resp Auscultation: clear to auscultation bilaterally, no rales and no wheezes Cardio Rate: regular rate Rhythm: regular rhythm Heart sounds: no murmurs GI Palpation (GI): Soft to palpation and nontender Auscultation: normal bowel sounds Back/Spine/Pelvis Thoracic/Lumbar Spine: lumbar spinal tenderness Skin Rashes: no rashes Extrem General: Yes no clubbing, cyanosis or edema Right upper extremity: shoulder/upper arm Details: tenderness Location: of the A-C joint and abnormal ROM (limited ROM due to pain) Right lower extremity: hip/thigh Details: tenderness Location: of the hip Left lower extremity: ankle Results Reviewed Results Reviewed: Laboratory Tests 10/15/24 15:27 Sodium 139 Potassium 4.3 Creatinine 0.87 Estimated GFR > 60 Fasting Glucose 88 Calcium 9.3 AST 26 ALT 19 Triglycerides 125 Cholesterol 146 LDL Cholesterol, Calc 72 HDL Cholesterol 49 Coding Level of Care Code Est Pt Level 4 (01885) Diagnoses Pure hypercholesterolemia E78.00 Superficial gastritis without hemorrhage, unspecified chronicity K29.30 Chronicity: unspecified Thoracic radiculopathy M54.14 Arthritis, multiple joint involvement M12.9 Derangement of ankle, left M24.9 Insomnia, unspecified type G47.00 Insomnia type: unspecified Smoker F17.200 Obesity (BMI 30-39.9) E66.9 Additional Codes PHQ-9 - 98165 - PHQ-9 Billing: Yes ([id number]) Assessment & Plan Assessment & Plan (1) Pure hypercholesterolemia: Code(s): E78.00 - Pure hypercholesterolemia, unspecified Category: Medical Plan: Patient was not able to get her follow-up labs done prior to her appointment today - states that she did get her labs done right after her last visit back in October 2024 and the results of these are reviewed (see above) Reinforced low cholesterol diet Continue Atorvastatin 40 mg QD Will recheck her labs and fasting lipids next month just before she comes in for her annual physical exam (2) Superficial gastritis without hemorrhage: Code(s): K29.30 - Chronic superficial gastritis without bleeding Category: Medical Qualifiers: Chronicity: unspecified Qualified Code(s): K29.30 - Chronic superficial gastritis without bleeding Plan: EGD with biopsies done in March 2019 showed (+) acute ulcers at the small bowel anastomotic site; gastric mucosa showed (+) erythema but biopsy was negative; it was also negative for H pylori Repeat EGD done in November 2019 shows mild gastric erythema and a grade 3 ulcer on the Keysha limb of the jejunum about 15 to 20 mm in diameter; biopsies were taken from these 2 sites and they came back negative for dysplasia or malignancy Follow up EGD in 2020 revealed similar findings Upper endoscopy done again on 04/02/2024 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 She underwent balloon dilatation and clipping of the gastrogastric fistula Continue Omeprazole 40 mg Q PM, Pantoprazole 40 mg Q AM, Famotidine 40 mg Q HS and Sucralfate 1 gm QID - with meals and at bedtime She underwent repeat EGD in June 2024 - no active bleeding and no new findings Follow-up with GI as scheduled - plan is to have patient undergo repeat EGD again in 4-6 months to ensure resolution of the anastomotic ulcers (3) Thoracic radiculopathy: Code(s): M54.14 - Radiculopathy, thoracic region Category: Medical Plan: Per request, will try starting her back on Cyclobenzaprine 5 mg TID PRN Follow up with pain management as scheduled (4) Arthritis, multiple joint involvement: Code(s): M12.9 - Arthropathy, unspecified Category: Medical Plan: Follow up with rheumatology as scheduled - she is now seeing [facility]ology instead of going to [facility] that rheumatology initially suspected that she may have psoriatic arthritis but as of her last visit, was advised that she most likely just had degenerative OA Her serum inflammatory markers on her recent labs have all come back normal She received cortisone injection into her right shoulder a few months ago but patient reports significantly increased pain in her shoulder since Repeat x-rays of the right shoulder done back in October 2024 revealed (+) mild to moderate glenohumeral joint and AC joint osteoarthritis with no acute bony abnormalities. Will refer patient again to orthopedics for further evaluation and management (5) Derangement of ankle, left: Code(s): M24.9 - Joint derangement, unspecified Category: Medical Plan: (+) Hx of fracture of the left ankle, S/P surgical repair, with consequent chronic arthropathy of the ankle Continue Gabapentin 800 mg TID (6) Insomnia: Code(s): G47.00 - Insomnia, unspecified Category: Medical Qualifiers: Insomnia type: unspecified Qualified Code(s): G47.00 - Insomnia, unspecified Plan: Will try starting patient back on Zolpidem 10 mg Q HS PRN (7) Smoker: Code(s): F17.200 - Nicotine dependence, unspecified, uncomplicated Category: Social Hx Plan: Patient is counseled again to continue working on complete smoking cessation (8) Obesity (BMI 30-39.9): Comment: S/P gastric bypass in 2014 Code(s): E66.9 - Obesity, unspecified Category: Medical Plan: Reinforced diet; exercise and weight loss are unrealistic currently given patient's multiple physical issues Plan To return as scheduled next month for her annual physical exam Orders: Orders Lipid Panel 03/22/25 E78.00 - Pure hypercholesterolemia, unspecified, Z00.00 - Encounter for general adult medical examination without abnormal findings UA CC w/rflx Micro + Cult 03/22/25 R30.0 - Dysuria, Z00.00 - Encounter for general adult medical examination without abnormal findings Complete Blood Count Auto Diff 03/22/25 D64.9 - Anemia, unspecified, Z00.00 - Encounter for general adult medical examination without abnormal findings Comprehensive [facility]. Panel Fast 03/22/25 E78.00 - Pure hypercholesterolemia, unspecified, Z00. - Encounter for general adult medical examination without abnormal findings TSH reflex Free T4 03/22/25 E78.00 - Pure hypercholesterolemia, unspecified, Z00.00 - Encounter for general adult medical examination without abnormal findings Vitamin D 25-OH Total 03/22/25 E55.9 - Vitamin D deficiency, unspecified, Z00.00 - Encounter for general adult medical examination without abnormal findings Referrals Orthopedics Referral M19.011 - Primary osteoarthritis, right shoulder, M19.012 - Primary osteoarthritis, left shoulder, M19.049 - Primary osteoarthritis, unspecified hand Medications: New cyclobenzaprine 5 mg PO TID PRN 90 tabs 1RF muscle spasm 30 days zolpidem 10 mg PO BEDTIME PRN 30 tabs 1RF sleep 30 days
--- OUTSIDE RECORDS SUMMARY | 2025-02-16 16:07 | XMS_ITS | Clinical Summary ---
Author Organization [facility] Address [address] [place] [id number] Phone Care Team Providers Care Aerospace Quality Engineer Name Role Phone Chuck De La Paz MD Primary Care Provider Allergies Active Allergy Reactions Criticality Noted Date Comments Codeine Unknown 05/18/2010 Diphenhydramine Unknown 05/18/2010 Erythromycin Base Unknown 05/18/2010 Ketorolac Unknown 05/18/2010 Latex, Natural Rubber Unknown 05/18/2010 Levofloxacin Unknown 05/18/2010 Meperidine Unknown 05/18/2010 Morphine Unknown 05/18/2010 Penicillins Unknown 05/18/2010 Sulfa (Sulfonamide Antibiotics) Unknown 05/09 Social History Tobacco Use Types Packs/Day Years Used Date Smoking Tobacco: Never Assessed Comments Unknown Sex and Gender Information Value Date Recorded Sex Assigned at Not on file Legal Sex Female 7:00 PM EST Gender Identity Not on file Sexual Orientation Not on file Last Filed Vital Signs Vital Sign Reading Time Taken Comments Blood Pressure 116/74 01/02/2011 9:21 AM EDT Pulse 67 01/02/2011 9:21 AM EDT Temperature - - Respiratory Rate - - Oxygen Saturation - - Inhaled Oxygen Concentration - - Weight 113.4 kg (250 lb) 08/16/2010 9:08 AM EDT Height 170.2 cm (5' 7 ) 08/16/2010 9:08 AM EDT Body Mass Index 39.16 08/16/2010 9:08 AM EDT Plan of Treatment Not on file Medical Devices Not on file Insurance [place] & [place] [address] [address] MEDICARE PART A & B Advance Directives For more information, please contact: [phone] (9AM - 5PM [facility], Saturday-Saturday) Documents on File Type Date Recorded Patient Remote Sensing Analyst Expl anation Advance Directive - Non Epic LMR 05/18/2010 12:00 AM Care Teams Aerospace Quality Engineer Relationship Specialty Start Date End Date Chuck De La Paz MD [address] [place] [address] PCP - General Family Medicine 12/24/13 Additional Source Comments The information contained in this document represents components of the legal health record. It is not the complete legal health record.[facility]
== END 2025-02-16 15:18 | disposition home or self-care (01) ==
LOC: HO.HMCH 14:25
PROVIDERS: PCP Internal Medicine; Visit Provider Internal Medicine
DX: E78.00 Pure hypercholesterolemia, unspecified (principal); K29.30 Chronic superficial gastritis without bleeding; E66.9 Obesity, unspecified; Z68.31 Body mass index [BMI] 31.0-31.9, adult; M54.14 Radiculopathy, thoracic region; M12.9 Arthropathy, unspecified; M24.9 Joint derangement, unspecified; G47.00 Insomnia, unspecified; F17.200 Nicotine dependence, unspecified, uncomplicated

== ENCOUNTER → 2025-02-16 14:24 | Outpatient (BNVA) | payer MEDICARE, MEDICAID, SELFPAY | PROVIDERS: PCP Internal Medicine; Visit Provider Internal Medicine | DX: E78.00 Pure hypercholesterolemia, unspecified (principal); K29.30 Chronic superficial gastritis without bleeding; M54.14 Radiculopathy, thoracic region; M12.9 Arthropathy, unspecified; M24.9 Joint derangement, unspecified; G47.00 Insomnia, unspecified; E66.9 Obesity, unspecified; Z68.31 Body mass index [BMI] 31.0-31.9, adult; F17.200 Nicotine dependence, unspecified, uncomplicated; Z71.3 Dietary counseling and surveillance; Z71.6 Tobacco abuse counseling | CPT/HCPCS: 96127; 99212 ==

== ENCOUNTER 2025-03-31 13:26 | Outpatient (AMB) | payer MEDICARE, MEDICAID, SELFPAY ==
--- OUTSIDE RECORDS SUMMARY | 2025-03-31 13:28 | XMS_ITS | Clinical Summary ---
Author Organization [facility] Address [address] [place] [id number] Phone Care Team Providers Care Hr Systems Analyst Name Role Phone Chuck De La Paz [...] B [place] A & [place] [address] [place] [address] MEDICARE PART A & B Advance Directives For more information, please contact: [phone] (9AM - 5PM [facility], Saturday-Saturday) Documents on File Type Date Recorded Patient Carrier Loader Expl anation Advance Directive - Non Epic LMR 05/18/2010 12:00 AM Care Teams Hr Systems Analyst Relationship Specialty Start Date End Date Chuck De La Paz MD [address] [place] [address] PCP - General Family Medicine 12/24/13 Additional Source Comments The information contained in this document represents components of the legal health record. It is not the complete legal health record.[facility]
--- OUTSIDE RECORDS SUMMARY | 2025-03-31 13:28 | XMS_ITS | Clinical Summary ---
Author Organization [facility] Address [address] [place] [address] Care Team Providers Care Automobile Mechanic Assistant Name Role Phone Sonya Pollack MD Primary Care Provider [phone] Surgical History Surgery Date Site/Laterality Comments OTHER SURGICAL HISTORY PROCEDURE: ME LAPS TX ECTOPIC PREG W/O SALPING&/OOPHORECTOMY OTHER SURGICAL HISTORY PROCEDURE: ---- OTHER ----; COMMENT: Several foot surgeries for fractured left foot GASTRIC BYPASS PROCEDURE: ME GASTRIC RSTCV W/BYP W/SM INT RCNSTJ LIMIT ABSRPJ CHOLECYSTECTOMY PROCEDURE: LAPAROSCOPY, CHOLECYSTECTOMY SECTION PROCEDURE: ME DELIVERY ONLY OTHER SURGICAL HISTORY 1978 PROCEDURE: ME CONIZATION CERVIX W/WO D&C RPR KNIFE/LASER; COMMENT: [...] Comments Lung cancer Brother 1 Other: CAD, DC Father Other: Pancreatic cancer Mother Relation Name [...] on file Sexual Orientation Not on file Plan of Treatment Health Maintenance Due Date Last Done Comments Breast Cancer Screening 1960 Colorectal Cancer Screening: Colonoscopy 1960 DTaP,Tdap,and Td Vaccines (1 - Tdap) 01/17/1979 Pneumococcal Vaccine: 50+ Ye ars (1 of 2 - PCV) 01/17/1979 Cervical Cancer Screening: P ap Smear 01/17/1981 Zoster Vaccines (1 of 2) 01/17/2010 Hepatitis C Screening 05/07/2023 Osteoporosis Screening (Bone Density Screening) 05/07/2023 Social Influencers of Health Screening 05/07/2023 Depression Screening 04/08/2024 COVID-19 Vaccine (1 - 2024-2 6 season) 2024 Influenza Vaccine (#1) 2024 Falls Risk Assessment 01/17/2025 RSV Immunization Adult Patie nts (1 - [...] age to complete this topic Care Teams Automobile Mechanic Assistant Relationship Specialty Start Date End Date Sonya Pollack MD PCP - General Internal Medicine 03/22/16
--- NOTE | 2025-03-31 13:38 | AM.OFFVISMDC ---
Intake Vital Signs 03/31/25 13:39 Height 5 ft 8 in Weight 209 lb 6 oz BMI 31.8 BP 110/60 Blood Pressure Location Lt brachial Position Sitting Pulse 74 Pulse Source Pulse Oximeter Temp 97.3 F Temp Source Temporal Artery Scan Pulse Oximetry (%) 96 Oxygen Delivery Method Room Air Intake Visit Reasons: Annual pe Intake Note: Patient is here for an Annual Wellness Visit. Second Baker Required: No Pattern Maker Programer: Pattern Maker Programer offered & declined Accompanied by: Self / Same As Patient Allergies adhesive tape (TAPE,ADHESIVE) Allergy (Severe, Verified 03/31/25 14:04) ANAPHYLAXIS diphenhydramine (From BENADRYL) Allergy (Severe, Verified 03/31/25 14:04) ANAPHYLAXIS erythromycin base (ERYTHROMYCIN BASE) Allergy (Severe, Verified 03/31/25 14:04) ANAPHYLAXIS latex (LATEX) Allergy (Severe, Verified 03/31/25 14:04) ANAPHYLAXIS levofloxacin (From LEVAQUIN) Allergy (Severe, Verified 03/31/25 14:04) ANAPHYLAXIS meperidine (From DEMEROL) Allergy (Severe, Verified 03/31/25 14:04) ANAPHYLAXIS morphine (MORPHINE) Allergy (Unknown, Verified 03/31/25 14:04) UNKNOWN RED DYE IN TYLOX Allergy (Unknown, Uncoded 03/31/25 14:04) Unknown pollen Allergy (Uncoded 03/31/25 14:04) Sneezing Medication List - Last Reconciled 03/31/25 by Ronni Kingsley MD albuterol sulfate 90 mcg/actuation (Ventolin HFA) 2 puffs inhalation Q6H PRN atorvastatin 40 mg PO DAILY 90 days calcium carbonate-vitamin D3 600 mg-10 mcg (400 unit) (Calcium 600 + D(3)) 1 tab PO BID 30 days diclofenac sodium 1% 2 - 3 grams topical TID dicyclomine 20 mg (2 x 10 mg) PO BID famotidine 40 mg PO BEDTIME PRN gabapentin 800 mg PO TID vpcsvrts-fmt-ctat-FA-vit K-lut 8 mg iron-400 mcg-50 mcg (Centrum Silver Women) 1 tab PO DAILY omeprazole 40 mg PO QPM ondansetron 4 mg PO Q8H PRN pantoprazole 40 mg PO QAM sucralfate 1 g PO QID zolpidem 10 mg PO BEDTIME PRN 30 days HPI Annual pe HPI Details Patient comes in today for her Medicare Annual Wellness Exam AND follow up visit States that she continues to experience diffuse myalgia and increased multiple joint pains and that she mostly spends the whole day in bed and rarely gets up from bed anymore because she is just in too much pain She experiences pain and numbness in both legs - one leg hurts constantly, while symptoms are just starting in the other She expresses a significant fear of developing blood clots. She reports a poor appetite, sometimes going up to three days without eating, and her diet includes items like grilled cheese and toast. She occasionally experiences constipation, which she manages with suppositories as needed. She is currently still seeing [facility] Rheumatology and gets joint injections from them when needed with some relief of her joint pains from the injections Notes that she has been experiencing increased pain over her right TMJ area for a couple of weeks now - denies any recent injury or trauma to her right TMJ She denies any headaches or dizziness Denies any chest pains, no increased SOB No nausea/vomiting, no abdominal pain She denies any acute urinary symptoms She continues to take Omeprazole 40 mg BID and Sucralfate for a grade 3 ulcer seen on the jejunal side of her Keysha-en-Y anastomosis on EGD back in 2020 that was still present on repeat EGD in 2021 She most recently had colonoscopy done in 12/[address] Scott - was advised to get a repeat colonoscopy in 3 to 4 yrs due to the presence of some polyps seen on her recent procedure so she is now due for repeat She declines to go for her annual mammogram and yearly gynecology exam, which are both past due [place] of care was reviewed and updated today Patient does not have a healthcare proxy in place or on file; she was provided with an HCP form and MOLST form and instructed to complete these as soon as possible IPPE/AWV: c/o of Annual Wellness Visit, subsequent visit. Medical / Social History Reviewed Past Medical History Yes . [place] [facility] of Care / Care Team list updated Yes . Surgical/Hospitalization History Yes . Current Medications (including OTC and supplements) Yes . Family History Yes . Tobacco Control form Yes . AUDIT-C (Alcohol use) form Yes . Illicit drug use in Social History Yes . Current diagnosis of depression? No Appropriate PHQ2/PHQ9 completed Yes . Data entered by Pouncing Machine Operator and reviewed by provider Home Safety Throw rugs? No Grab bars? No Raised toilet seats? No Working smoke detectors? Yes Working carbon monoxide detectors? Yes Data entered by Pouncing Machine Operator and reviewed by provider Activities of Daily Living (ADLs) Difficulty bathing or showering? Yes Difficulty dressing? No Difficulty using the toilet? No Difficulty getting in and out of bed? Yes Difficulty walking? No Receives help from another person with any of the above tasks? No Instrumental Activities of Daily Living (IADLs) Uses the telephone without help Gets to places out of walking distance with help Goes shopping for groceries with help Prepares own meals with help Does own minor home maintenance with help Does own laundry with help Does own housework with help Manages own money without help Currently takes medications? Yes Takes medication with help End-of-Life Planning Discussed advance directive Yes Advance directive not on file Discussed wishes expressed in advance directive agreed to following patient's wishes Fall Risk: Fall History Have you had any falls with injury in the past year? No . Have you had two or more falls in the past year? No . Fall Risk Assessment: No falls in the past year . HRA filled out by the patient, reviewed by Provider and scanned. [facility] Medical History Insomnia Smoker Osteoarthritis of carpometacarpal joint of left thumb Inflammatory arthropathy Screening examination for infectious disease Pain in joint, multiple sites Arthritis, multiple joint involvement Migraine Epidermal cyst Obesity (BMI 30-39.9) Derangement of ankle, left Neuropathy Thoracic radiculopathy Superficial gastritis without hemorrhage Pure hypercholesterolemia Surgical History Hx of toe surgery Hx of colonoscopy History of esophagogastroduodenoscopy (EGD) History of surgery History of oral surgery History of eye surgery H/O gastric bypass History of foot surgery History of elbow surgery History of cholecystectomy History of tonsillectomy Family History Mother Diabetes mellitus Arthritis Father Cardiovascular disease Brother Asbestosis Mesothelioma Arthritis Sister Mental health problem Arthritis Cancer Other Substance abuse Social History Household Members: Family and Children Housing: House Are you a primary zoo caretaker to a significant other at home: No Do you presently have visiting nurse or other home services: No Alcohol intake: current Alcohol intake frequency: holidays/special occasions only Alcohol type: wine Patient Tobacco Use Status: Current someday Tobacco user Tobacco use type: Cigarette Cigarettes Per Day: 10 Years Smoked: 54 e-Cigarette/Vaping Use: Never Used Second Hand Smoke Exposure: Yes Substance Use Type: Marijuana service: No Current occupational status: disabled Current occupational exposures/hazards: No Cognitive needs: Yes (cane) Hearing needs: No Vision needs: Yes Questionnaire Medicare Wellness Checkup What [age] 65-69 What gender do you identify with?: female During the past 4 weeks, how much have you been bothered by emotional problems such as feeling anxious, depressed, irritable, sad or downhearted, and blue?: extremely During the past 4 weeks, has your physical & emotional health limited your social activities with family, friends, neighbors, or groups?: extremely During the past 4 weeks, how much bodily pain have you generally had?: severe pain During the past 4 weeks, was someone available to help you if you needed & wanted help?: yes, as much as I wanted During the past 4 weeks, what was the hardest physical activity you could do for at least 2 minutes?: very light (Stay in bed) Can you get to places out of walking distance without help? (For eg., can you travel alone on buses, taxis or drive your car?): No Can you go shopping for groceries or clothes without someone's help?: No Can you prepare your own meals?: No Can you do your housework without help?: No Because of any health problems, do you need the help of another person with your personal care needs such as eating, bathing, dressing or getting around the house?: Yes During the past 4 weeks, how would you rate your health in general?: poor During the past 4 weeks how have things been going for you?: pretty bad Are you having difficulties driving your car?: sometimes Do you always fasten your seat belt when you are in a car?: yes, usually During past 4 weeks, have you been bothered by the following: never: Sexual problems? and Problems using the telephone?, often: Falling or dizzy when standing up and Teeth or denture problems? and always: Trouble eating well? and Tiredness or fatigue? Have you fallen 2 or more times in the past year?: Yes Are you afraid of falling?: No Are you a smoker?: yes, but I'm not ready to quit During the past 4 weeks, how many drinks of wine, beer, or other alcoholic beverages did you have?: no alcohol at all Do you exercise for about 20 minutes 3 or more times a week?: no, I usually do not exercise this much Have you been given information to help with the following?: yes: Hazards in your house that might hurt you? and yes: Keeping track of your medications? How often do you have trouble taking medicines the way you have been told to take them?: I always take medicine as prescribed How confident are you that you can control & manage most of your health problems?: not very confident What is your race?: White Mini Mental State Exam (MMSE) Orientation What is the (year) (season) (date) (day) (month)?: year, season, date, day and month Where are we (state) (county) (town or city) (hospital) (floor)?: state, county, town or city, hospital/clinic and floor Score Score: 10 Activity of Daily Living Bathing - sponge bath, tub bath or shower: receives help in bathing more than one body part (or not bathed) Dressing - getting clothes from closets & drawers, including inner/outer garments & fasteners.: gets clothes & gets dressed without help, except for help tying shoes Toileting - going to the 'toilet room' for urine/bowel elimination & cleaning self/arranging clothes: goes to toilet room, cleans self, arranges clothes without help Transfer: moves in & out of bed and chair without help (may use support object) Continence: has occasional 'accidents' Feeding: feeds self without help Total Score: 1 Information obtained from: patient Using telephone: independent Traveling: needs assistance Shopping: dependent Preparing meals: needs assistance Housework: dependent Taking medicine: needs assistance Managing money: independent PHQ-9 Over the last 2 weeks, how often have you been bothered by any of the following problems? 1. Little interest or pleasure in doing things: nearly every day 2. Feeling down, depressed, or hopeless: nearly every day 3. Trouble falling or staying asleep, or sleeping too much: more than half the days 4. Feeling tired or having little energy: nearly every day 5. Poor appetite or overeating: not at all 6. Feeling bad about yourself - or that you are a failure or have let yourself or your family down: not at all 7. Trouble concentrating on things, such as reading the newspaper or watching television: not at all 8. Moving or speaking so slowly that other people could have noticed. Or the opposite - being so fidgety or restless that you have been moving around a lot more than usual: nearly every day 9. Thoughts that you would be better off or of hurting yourself in some way: not at all Total score: 14 Depression Screening Interpretation: Positive Depression Screening Follow-up: Existing condition, In treatment and Follow-up Visit Requested Depression Screening Done: Yes [id number] - PHQ-9 Billing: Yes Source: Developed by Drs. Lan Brar, Ava Grey, Brennen Marte and colleagues, with an educational alex from [employer]. Thrive Questionnaire Date Thrive assessed: 03/31/25 I am a: Patient What is your living situation today?: I have a steady place to live Within the past 12 months, did the food you bought not last and you didn't have the money to get more?: Never true Within the past 12 months, did you worry whether your food would run out before you got money to buy more?: Never true Do you have trouble paying for medicines?: No Do you have trouble getting transportation to medical appointments?: No Do you have trouble paying your heating and electricity bill?: No Do you have trouble taking care of your child, family member or friend?: No Do you have trouble with day-to-day activities such as bathing, preparing meals, shopping, managing finances, etc.?: Yes Are you currently unemployed and looking for a job?: No Are you interested in more education?: No Please select the resources that you would like help with: None Currently or been in a relationship where the following occur: No concerns reported THRIVE Score: 0 MELANIE-7 AMB Questionnaire MELANIE-7 Date MELANIE - 7 assessed: 02/16/25 Source: Developed by Drs. Lan Brar, Ava Grey, Brennen Marte and colleagues, with an educational alex from [employer]. AUDIT C Alcohol Use Questionnaire (AUDIT-C) 1. How often do you have a drink containing alcohol?: Monthly or less 2. How many drinks containing alcohol do you have on a typical day when you are drinking?: 1 or 2 3. How often do you have six or more drinks on one occasion?: Never Total Score: 1 Score Reviewed/Action Taken: Yes Review of Systems Const Reports body aches (diffuse), Denies chills, Reports difficulty sleeping, Reports fatigue, Denies fever(s), Denies headache(s) and Reports poor appetite Eyes Denies blurry vision, Denies change in vision, Denies irritation and Denies itchy eyes ENT Details: increased pain over her right jaw/TMJ area Denies dysphagia, Denies dizziness, Denies otalgia, Denies headache(s), Denies neck pain, Denies odynophagia and Denies sore throat Card Denies chest pain, Denies palpitations and Denies dyspnea Resp Denies chest congestion, Denies cough, Denies dyspnea and Denies wheezing GI Denies abdominal pain, Reports constipation (symptoms improved with Movantik), Denies dysphagia, Denies heartburn, Denies diarrhea, Denies nausea, Denies odynophagia and Denies vomiting Denies difficulty voiding, Denies nocturia, Denies dysuria and Denies urinary urgency Musc Reports back pain (chronic), Reports arthralgias (involving multiple joints - left ankle/foot (chronic), right shoulder), Denies joint swelling, Denies neck pain and Reports stiffness Skin/Breast Denies lesions and Denies rash Neuro Denies dizziness and Denies headache(s) Psych Denies anxiety and Denies depression Endo Reports fatigue and Denies palpitations Irwin/Lymph Denies easy bruising Aller/Immun Denies itchy eyes and Denies wheezing Physical Exam Vital Signs: Last Vital Signs Temp 97.3 F 03/31/25 13:39 Pulse 74 03/31/25 13:39 BP 110/60 03/31/25 13:39 Pulse Ox 96 03/31/25 13:39 Oxygen Delivery Method Room Air 03/31/25 13:39 BMI result Body Mass Index 31.8 IPPE/AWV: Balance Romberg Yes . Tandem walk No. Walk and Turn No . Rise from sit to stand No . Vision Corrective lens No Vision screen pass Hearing Whisper test pass . Urinary incont. no. EKG Not clinically necessary. Const General: no acute distress and alert Orientation/consciousness: patient oriented x3 HEENT Ears: TM's normal bilaterally and EAC's normal Mouth: abnormal TMJ ((+) increased tenderness over the right TMJ on palpation) Throat: Yes posterior oropharynx normal and Yes tonsils normal (no TP congestion noted) Neck Neck: No lymphadenopathy and Yes tender (over the cervical spine and paraspinal areas bilaterally) Thyroid: Thyroid normal Resp Auscultation: clear to auscultation bilaterally, no rales and no wheezes Cardio Rate: regular rate Rhythm: regular rhythm Heart sounds: no murmurs GI Palpation (GI): Soft to palpation and nontender Auscultation: normal bowel sounds General: Yes no CVA tenderness Back/Spine/Pelvis Back: no CVA tenderness Thoracic/Lumbar Spine: paraspinal muscle tenderness bilaterally (over the cervical and thoracolumbar spine (diffuse)) and lumbar spinal tenderness Skin Lesions: no lesions Rashes: no rashes Neuro General: patient oriented x3 Cognition (Neuro): normal cognition Extrem General: Yes no clubbing, cyanosis or edema Right upper extremity: shoulder/upper arm Details: tenderness (diffusely over the scapular area) Left upper extremity: shoulder/upper arm Details: tenderness (diffusely over the scapular areas) Right lower extremity: hip/thigh Details: tenderness Location: of the hip; no swelling Left lower extremity: knee Details: tenderness; no swelling and ankle Details: tenderness (chronic); no swelling Psych Thought process: Normal thought process present Assessment & Plan Assessment & Plan (1) Medicare annual wellness visit, subsequent: Code(s): Z00.00 - Encounter for general adult medical examination without abnormal findings Plan: [facility] updated HRA form discussed and completed with patient; form will be scanned into patient's chart Advance care planning discussed with patient - HCP, MOLST and DNR forms provided to patient, who states that she will fill these out with her son, who she will designate as her HCP, and bring these back as soon as she can She is now due for repeat colonoscopy but declines mammography (too painful) and gynecology exam/pap smear, both of which are past due (2) Arthralgia of right temporomandibular joint: Code(s): M26.621 - Arthralgia of right temporomandibular joint Plan: Will send patient for x-rays of the right mandible for further evaluation (3) Pure hypercholesterolemia: Code(s): E78.00 - Pure hypercholesterolemia, unspecified Plan: Patient was not able to get her follow-up labs done prior to her appointment today - states that she did get her labs done right after her last visit back in October 2024 She is advised to try to get her labs done (previously ordered and now updated) RUBÉN to complete her exam today Reinforced low cholesterol diet Continue Atorvastatin 40 mg QD Will recheck her labs and fasting lipids in 4 months for follow up (4) Superficial gastritis without hemorrhage: Code(s): K29.30 - Chronic superficial gastritis without bleeding Qualifiers: Chronicity: unspecified Qualified Code(s): K29.30 - Chronic superficial gastritis without bleeding Plan: EGD with biopsies done in March 2019 showed (+) acute ulcers at the small bowel anastomotic site; gastric mucosa showed (+) erythema but biopsy was negative; it was also negative for H pylori Repeat EGD done in November 2019 shows mild gastric erythema and a grade 3 ulcer on the Keysha limb of the jejunum about 15 to 20 mm in diameter; biopsies were taken from these 2 sites and they came back negative for dysplasia or malignancy Follow up EGD in 2020 revealed similar findings Upper endoscopy done again on 04/02/2024 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 She underwent balloon dilatation and clipping of the gastrogastric fistula Continue Omeprazole 40 mg Q PM, Pantoprazole 40 mg Q AM, Famotidine 40 mg Q HS and Sucralfate 1 gm QID - with meals and at bedtime She underwent repeat EGD in June 2024 - no active bleeding and no new findings Follow-up with GI as scheduled - plan is to have patient undergo repeat EGD again in 4-6 months to ensure resolution of the anastomotic ulcers (5) Thoracic radiculopathy: Code(s): M54.14 - Radiculopathy, thoracic region Plan: She used to take Cyclobenzaprine 5 mg TID PRN but states that her insurance will no longer cover her Rx Will start her on Tizanidine 4 mg TID PRN She used to go to pain management but has not been back to see them since she was indefinitely suspended from chronic opioid Tx in 2021 (6) Arthritis, multiple joint involvement: Code(s): M12.9 - Arthropathy, unspecified Plan: Follow up with rheumatology as scheduled - she is now seeing [facility] instead of [facility] [place] States that rheumatology initially suspected that she may have psoriatic arthritis but as of her last visit, was advised that she most likely just had degenerative OA Her serum inflammatory markers have all come back normal when previously checked She received cortisone injection into her right shoulder last year but patient reports significantly increased pain in her shoulder since Repeat x-rays of the right shoulder done back in October 2024 revealed (+) mild to moderate glenohumeral joint and AC joint osteoarthritis with no acute bony abnormalities. We referred patient again to orthopedics for further evaluation and management and she is now scheduled to be seen by Dr. Arenas next month on 04/19/2025 (7) Derangement of ankle, left: Code(s): M24.9 - Joint derangement, unspecified Plan: (+) Hx of fracture of the left ankle, S/P surgical repair, with consequent chronic arthropathy of the ankle Continue Gabapentin 800 mg TID (8) Bilateral lower extremity pain: Code(s): M79.604 - Pain in right leg; M79.605 - Pain in left leg Plan: Will send patient for NCV and EMG of both lower extremities for further evaluation (9) Insomnia: Code(s): G47.00 - Insomnia, unspecified Qualifiers: Insomnia type: unspecified Qualified Code(s): G47.00 - Insomnia, unspecified Plan: Sleep hygiene reinforced Continue Zolpidem 10 mg Q HS PRN (10) Smoker: Code(s): F17.200 - Nicotine dependence, unspecified, uncomplicated Plan: Patient is counseled again to continue working on smoking cessation but she feels that she is having a hard time quitting (11) Obesity (BMI 30-39.9): Comment: S/P gastric bypass in 2014 Code(s): E66.9 - Obesity, unspecified Plan: Reinforced diet; exercise and weight loss are unrealistic currently given patient's multiple physical issues (12) Colon cancer screening: Code(s): Z12.11 - Encounter for screening for malignant neoplasm of colon Plan: Will refer patient back to Dr. Scott for repeat colonoscopy, as she is now due for repeat screening (13) Osteoporosis screening: Code(s): Z13.820 - Encounter for screening for osteoporosis Plan: Will send patient for BMD for osteoporosis screening - this will be her index screen Plan Follow up in 4 months Orders: Orders XR mandible min 4V 03/31/25 M26.621 - Arthralgia of right temporomandibular joint Complete Blood Count Auto Diff 4 Months D64.9 - Anemia, unspecified Comprehensive [place]. Panel Fast 4 Months E78.00 - Pure hypercholesterolemia, unspecified Lipid Panel 4 Months E78.00 - Pure hypercholesterolemia, unspecified UA CC w/rflx Micro + Cult 4 Months R30.0 - Dysuria Vitamin D 25-OH Total 4 Months E55.9 - Vitamin D deficiency, unspecified XR DEXA axial skeleton 03/31/25 Z78.0 - Asymptomatic menopausal state NE nerve conduction velocity 03/31/25 M79.604 - Pain in right leg, M79.605 - Pain in left leg, R20.0 - Anesthesia of skin, R20.2 - Paresthesia of skin NE electromyogram (EMG) 03/31/25 M79.604 - Pain in right leg, M79.605 - Pain in left leg, R20.0 - Anesthesia of skin, R20.2 - Paresthesia of skin Referrals Gastroenterology Referral Z12.11 - Encounter for screening for malignant neoplasm of colon Medications: New tizanidine 4 mg PO Q8H PRN 90 tabs 0RF muscle spasms 30 days Refilled zolpidem 10 mg PO BEDTIME PRN 30 tabs 1RF sleep 30 days Quality Reporting (2019) Depression/Bipolar (159/160/161/177) PHQ-9: Total score: 14 Coding Level of Care Code Medicare Subsequent (G0439) Est Pt Level 4 (89651) Diagnoses Medicare annual wellness visit, subsequent Z00.00 Arthralgia of right temporomandibular joint M26.621 Pure hypercholesterolemia E78.00 Superficial gastritis without hemorrhage, unspecified chronicity K29.30 Chronicity: unspecified Thoracic radiculopathy M54.14 Arthritis, multiple joint involvement M12.9 Derangement of ankle, left M24.9 Bilateral lower extremity pain M79.604; M79.605 Insomnia, unspecified type G47.00 Insomnia type: unspecified Smoker F17.200 Obesity (BMI 30-39.9) E66.9 Colon cancer screening Z12.11 Osteoporosis screening Z13.820 CPT Codes Advance Care Planning - Time spent: 1-15 minutes, not on file ([id number]) Additional Codes PHQ-9 - [id number] - PHQ-9 Billing: Yes ([id number]) Advance Care Planning Advance Care Planning discussion: Exists, not on file (HCP, MOLST and DNR forms are given to patient - she will complete them at home with her son and bring them back as soon as she can) Date of discussion: 03/31/25 Who was present: Patient, PCP Time spent: 1-15 minutes, not on file
[2025-03-31 13:39] VITALS: BP 110/60; PULSE 74; TEMP 36.3; O2SAT 96; BMI 31.8
== END 2025-03-31 14:34 | disposition home or self-care (01) ==
LOC: HO.HMCH 13:27
PROVIDERS: PCP Internal Medicine; Visit Provider Internal Medicine
DX: Z00.00 Encounter for general adult medical examination without abnormal findings (principal); M26.621 Arthralgia of right temporomandibular joint; E78.00 Pure hypercholesterolemia, unspecified; K29.30 Chronic superficial gastritis without bleeding; M54.14 Radiculopathy, thoracic region; M12.9 Arthropathy, unspecified; M24.9 Joint derangement, unspecified; G47.00 Insomnia, unspecified; M79.604 Pain in right leg; M79.605 Pain in left leg; F17.200 Nicotine dependence, unspecified, uncomplicated; E66.9 Obesity, unspecified; Z68.31 Body mass index [BMI] 31.0-31.9, adult; Z98.84 Bariatric surgery status

== ENCOUNTER 2025-03-31 13:26 | Outpatient (REF) | payer MEDICARE, MEDICAID, SELFPAY ==
--- NOTE | ~2025-03-31 | XR_ITS ---
EXAMINATION: XR MANDIBLE CLINICAL INFORMATION: M26.621 - Arthralgia of right temporomandibular joint COMPARISON: None available. TECHNIQUE: 4 views of the mandible were obtained. FINDINGS: The exam is suboptimal with no obvious bony erosive changes involving right mandibular condyle. The TM joint space is maintained normal. No bony erosive changes or fracture. The soft tissues are normal. XR/XR mandible min 4V IMPRESSION: Limited exam with no gross right TM joint abnormality seen. Electronically signed by: Dedrick Pelayo MD 03/31/2025 03:27 PM EST
== END 2025-03-31 13:27 | disposition home or self-care (01) ==
LOC: HO.LAB 13:26
PROVIDERS: PCP Internal Medicine; Visit Provider Internal Medicine
DX: Z00.00 Encounter for general adult medical examination without abnormal findings (principal); M26.621 Arthralgia of right temporomandibular joint; M79.10 Myalgia, unspecified site; M25.50 Pain in unspecified joint; M79.605 Pain in left leg; M79.604 Pain in right leg; K59.00 Constipation, unspecified; E78.00 Pure hypercholesterolemia, unspecified; K29.30 Chronic superficial gastritis without bleeding; M54.14 Radiculopathy, thoracic region; G47.00 Insomnia, unspecified; F17.210 Nicotine dependence, cigarettes, uncomplicated; E66.9 Obesity, unspecified; Z68.31 Body mass index [BMI] 31.0-31.9, adult
CPT/HCPCS: 70110; 96127

== ENCOUNTER → 2025-03-31 14:47 | Outpatient (BNV) | payer MEDICARE, MEDICAID, SELFPAY | PROVIDERS: PCP Internal Medicine; Visit Provider Radiology Diagnostic Radiology | DX: M26.621 Arthralgia of right temporomandibular joint (principal) | CPT/HCPCS: 70110 ==